=== PATIENT | female | born 1970 | race Caucasian/White ===

== ENCOUNTER 2016-12-06 17:07 | Inpatient (IN) ==
[2016-12-06] MEDS ORDERED: ONDANSETRON 4 MG/2 ML VIAL IV STA (17:39)
[2016-12-06] MEDS ORDERED: ALUM/MAG/SIMETH/LIDO VISC 1:1 30 ML BOTTLE PO STA (17:39)
[2016-12-06] MEDS ORDERED: PANTOPRAZOLE 40 MG VIAL IV STA (17:39)
[2016-12-06 18:16] LABS: Basophils % 0.4 % (0.0-0.8); Eosinophils # 0.1 10*3/uL (0.0-0.87); Eosinophils % 3.1 % (0.00-10.9); Hematocrit 28.7 VOL% (35.7-47.0); Hemoglobin 9.7 GM/DL (12.0-16.0); Immature Granulocytes % 0.4 %; Immature Granulocytes Absolute 0.02 #; Lymphocytes # 1.3 10*3/uL (1.4-4.0); Lymphocytes % 29.8 % (21.3-54.2); Mean Corpuscular HGB Conc 33.8 GM/DL (32-36); Mean Corpuscular Hemoglobin 33 PG (27-34); Mean Corpuscular Volume 97.3 FL (87-102); Mean Platelet Volume 10.5 FL (9.6-12.0); Monocytes # 0.4 10*3/uL (0.11-0.8); Monocytes % 7.8 % (1.7-12.7); Neutrophils # 2.6 10*3/uL (1.4-7.4); Neutrophils % 58.5 % (38.7-73.9); Platelet Count 176 T/CUMM (130-400); Red Blood Count 2.95 MC/CUMM (3.8-5.5); Red Cell Distribution Width 14.8 % (9.3-17.3); White Blood Count 4.5 T/CUMM (4-12)
[2016-12-06] MEDS ORDERED: PANTOPRAZOLE 40 MG VIAL IV ONE (18:33)
[2016-12-06] MEDS ORDERED: ONDANSETRON 4 MG/2 ML VIAL ONE (18:33)
[2016-12-06] MEDS ORDERED: ALUM/MAG/SIMETH/LIDO VISC 1:1 30 ML BOTTLE PO ONE (18:33)
--- NOTE | 2016-12-06 18:33 | Emergency Department Note ---
Charlene Jeffries Hilary, am scribing for, and in the presence of, Irwin Tolentino MD 18:03. Randa Jeffries Charles R, MD, personally performed the services described in this documentation, ascribed by Shalini Chang in my presence, and it is both accurate and complete [id number] . Arrival - Arrival Chief Complaint: Non-Specific Stated Complaint: elevated potassium/sent by Dr. Bejarano office ED Nursing Triage Note: pt went to dr mcgraw office this am and had labs drawn. pt was told to come to the er for a K+ 7.4 Mode of Arrival: Wheelchair Limitations: No Limitations Source: Patient, RN Notes Reviewed Time Seen by Provider: 12/06/16 17:26 - History of Present Illness HPI Narrative: Pt is a 6 y/o female presenting to the ED for evaluation of a K+ of 7.[address] Ortiz strong this AM where she had labs drawn. Pt gives a long story that started with her great toe on her left foot being removed, she was put on Bactrim for 10 days, antibiotics bother her stomach so she has had foul smelling , cranberry colored stool for 4 days. She confirms weakness, trembling, SOB due to her anemia, she fell the other day and fell on her tailbone and her back has been hurting over her kidneys. No other complaints or problems stated in the ED. Onset (ago): unknown Consistency: constant Severity: mild Severity scale (1-10): 1 Allergies/Adverse Reactions: Allergies Allergy/AdvReac Type Severity Reaction Status Date / Time acetaminophen [From Lortab] Allergy Verified 03/14/16 11:33 hydrochlorothiazide Allergy Verified 03/14/16 11:33 hydrocodone [From Lortab] Allergy Verified 03/14/16 11:33 Home Medications: Home Medications Medication Instructions Recorded Confirmed Type Allopurinol [Zyloprim] 100 mg PO BID 03/14/16 12/06/16 History Aspirin EC Tab 325 mg PO QPM 03/14/16 12/06/16 History Atenolol [Tenormin] 50 mg PO DAILY 03/14/16 12/06/16 History Cholecalciferol (Vitamin D3) 5,000 unit PO DAILY 03/14/16 12/06/16 History [Vitamin D3] Estradiol Tab [Estrace Tab] 2 mg PO DAILY 03/14/16 12/06/16 History Ferrous Sulfate [Ferrous Sulfate 325 mg PO DAILY 03/14/16 12/06/16 History Cap] Furosemide Tab [Lasix Tab] 40 mg PO QAM 03/14/16 12/06/16 History Insulin Regular Conc U-500 55 units SUBCUT TID W/MEALS 03/14/16 12/06/16 History [HumuLIN R U-500 (CONCENTRATED)] Lisinopril [Zestril] 40 mg PO BEDTIME 03/14/16 12/06/16 History Magnesium Chloride [Slow Mag] 64 mg PO BID 03/14/16 12/06/16 History Montelukast Tab [Singulair Tab] 10 mg PO DAILY 03/14/16 12/06/16 History Pioglitazone HCl [Actos] 30 mg PO DAILY 03/14/16 12/06/16 History Promethazine Tab [Phenergan Tab] 25 mg PO Q6H PRN 03/14/16 12/06/16 History Ranitidine Tab [Zantac Tab] 150 mg PO BID PRN 03/14/16 12/06/16 History Sertraline [Zoloft] 50 mg PO DAILY 03/14/16 12/06/16 History Spironolactone [Aldactone] 25 mg PO BID 03/14/16 12/06/16 History amLODIPine [Norvasc] 2.5 mg PO DAILY 03/14/16 12/06/16 History metFORMIN [Glucophage] 500 mg PO BID 03/14/16 12/06/16 History traMADol TAB [Ultram] 50 mg PO Q6H PRN 03/14/16 12/06/16 History Furosemide Tab [Lasix Tab] 20 tablet PO QPM 04/08/16 12/06/16 History Gabapentin 300 mg PO BID 12/06/16 12/06/16 History Levothyroxine Tab [Synthroid Tab] 150 mcg PO DAILY 12/06/16 12/06/16 History Multivitamin (Centrum) [Centrum 1 tablet PO DAILY 12/06/16 12/06/16 History Tab] Vitamin E 400 unit PO DAILY 12/06/16 12/06/16 History Review of System - Review of System 12 point system: reviewed and no additional remarkable complaints except as stated - Review of System Constitutional: Present: weakness. Absent: fever Respiratory: Present: respiratory distress (SOB) Gastrointestinal: Present: diarrhea, hematochezia Musculoskeletal: Present: lower back pain Neurological: Present: weakness Medical,Surgical,& Family Hx - Medical History Cardio: History of: Hypertension Psychological: History of: Depression No history of: Anxiety Disorders, Bipolar Disorder, Schizophrenia Neurology: History of: Peripheral Neuropathy No history of: Seizures HEENT: History of: Eye Problem (GLASSES) Endocrine: History of: Diabetes Mellitus (IDDM), Diabetes Mellitus (NIDDM), Dyslipidemia, Thyroid Disorder, Endocrine Problems (THYROID NODULE) Rheumatology: History of;: Gout Respiratory: History of: Obstructive Sleep Apnea (SLEEP WITH CPAP), Pneumonia ( 2012) Genitourinary: History of: Kidney Stones No history of: Bladder Problem Gastrointestinal: History of: GERD, Gastrointestinal Bleed, Hemorrhoids, Hematochezia, Hepatitis, Liver Problems (SWARTZ), Polyps Musculoskeletal: History of: Back/Neck Problems, Degenerative Disk Disease, Musculoskeletal Problems (OSteoarthritis; Stenosis) Hematology: History of: Anemia Reproductive: No history of: Abnormal Pap Smear, Breast Cancer, Reproductive Cancer Other: No history of: Cancer - Surgical History Cardiac Surgeries: Sugical HX of: Cardiac Catheterization (2010) HEENT Surgeries: Patient denies: Tonsilectomy & Adenoidectomy Abdominal Surgeries: Surgical HX of: Abdominal Surgery, Appendectomy, Colonoscopy, EGD Patient denies: Cholecystectomy Reproductive Surgeries: Surgical HX of;: Gynecologic Surgery, Hysterectomy Patient denies;: Genitourinary Surgery Orthopedic Surgeries: Surgical HX of;: Orthopedic Surgery (LEFT KNEE SCOPE) - Family History Family History: Reports;: Family Cancer (Mother (lymphoma)), Family Diabetes ( Brother, Mother), Family Heart Disease (Father), Family Hypertension (Father, Mother) - Social History Smoking Status: Never smoker Frequency of Alcohol Use: None Type of Drug Use: None Exam Vital Signs: Vital Signs Temperature 97.2 F L 12/06/16 17:39 Pulse Rate 69 12/06/16 18:56 Respiratory Rate 25 H 12/06/16 18:56 Blood Pressure 116/49 12/06/16 18:56 O2 Sat by Pulse Oximetry 100 12/06/16 18:56 - General General appearance: alert, in no apparent distress, obese (pickwickian syndrome due to trunkal obesity) - Head Head exam: Present: atraumatic, normocephalic - Eye Eye exam: Present: normal appearance, PERRL, EOMI, other (pale conjunctiva) - ENT ENT exam: Present: mucous membranes moist, TM's normal bilaterally. Absent: mucous membranes dry - Neck Neck exam: Present: full ROM, trachea midline. Absent: tenderness - Chest Chest inspection: Present: symmetric chest wall rise. Absent: tenderness - Respiratory Respiratory exam: Present: normal lung sounds bilaterally, rales (bibasilar), wheezes (slight wheezes that stop when she takes a breath) - Cardiovascular Cardiovascular exam: Present: regular rate, normal rhythm, normal heart sounds. Absent: murmur, rubs, gallop - Abdominal Exam Abdominal exam: Present: soft, distention (distended proturberant abdomen), tenderness (diffused tenderness), diminished bowel sounds - Rectal Exam Rectal exam: Present: heme (+) stool - Extremities Exam Extremities exam: Present: full ROM, tenderness, pedal edema (+2) - Back Exam Back exam: Present: full ROM. Absent: tenderness - Neurological Exam Neurological exam: Present: alert, oriented X3, CN II-XII intact. Absent: motor sensory deficit - Psychiatric Psychiatric exam: Present: normal affect, normal mood - Skin Skin exam: Present: warm, dry, intact, normal color. Absent: rash Course - Consultations Consultation #1: Dr. Gómez will admit patient for Dr. Dr. Mcgraw Time: 18:51 Results - Labs CBC & BMP: 12/06/16 18:05 12/06/16 18:05 Lab Results: I have reviewed the patients labs Critical Care Time Critical Care Time: Yes Total Critical Care Time: 60 Disposition Clinical Impression: Renal failure, Hyperkalemia, diminished renal excretion, Morbid obesity, Pickwickian syndrome, Anemia, Gastroenteritis, Acute blood loss anemia, GI bleed , Biliary colic, Abdominal pain Case discussed with: patient, patient's family Disposition: Still a Patient Condition: Critical Time of Disposition: 18:52
[2016-12-06 18:38] LABS: Lactic Acid 1.2 MMOL/L (0.4-2.0)
[2016-12-06 18:42] LABS: Alanine Aminotransferase 69 U/L (13-56); Alkaline Phosphatase 72 U/L (45-117); Amylase 89 U/L (25-115); Aspartate Amino Transferase 78 U/L (0-37); Blood Urea Nitrogen 76 MG/DL (7-18); Calcium 9.7 MG/DL (8.5-10.1); Glucose 186 MG/DL (74-106); Osmolality,Calculated 293.4 MOS/KG (273-304); Sodium 133 MMOL/L (136-145); Troponin I Only < 0.015 NG/ML (0.00-0.045)
--- NOTE | 2016-12-06 18:46 | XRay Report ---
XR abdomen 2V Indication: Abdominal pain. Abdomen 3 views: There are some surgical clips in the pelvis. Obesity noted. No small bowel dilatation. Normal amount of stool and gas projects over the colon, without dilatation. No evidence of free air. No abnormal calcifications or masses. Impression: Negative bowel gas pattern. PROCEDURE INTERPRETED AT [facility] DEPARTMENT OF RADIOLOGY Final Report Signed by: Garret Ferguson M.D.
--- NOTE | 2016-12-06 18:46 | XRay Report ---
XR chest 1V Indication: Abdominal pain. Chest one view: Comparison 08/10/2012. Heart size and mediastinal contour remain normal. No new infiltrates are shown. The appearance of interstitial prominence of the lungs likely secondary to overlying obesity. No significant pulmonary edema. No free air under the diaphragm. Impression: No acute cardiopulmonary disease. PROCEDURE INTERPRETED AT [facility] DEPARTMENT OF RADIOLOGY Final Report Signed by: Garret Ferguson M.D.
[2016-12-06] MEDS ORDERED: SODIUM POLYSTYRENE SULFATE 15 GM/60 ML BOTTLE PO STA (18:53)
[2016-12-06] MEDS ORDERED: CALCIUM CHLORIDE 1,000 MG/10 ML SYRINGE IV STA (18:53)
[2016-12-06 19:17] LABS: Apearance,Urine CLEAR (Clear); Bilirubin,Urine Negative (Negative); Blood, Urine Negative (Negative); Glucose,Urine (UA) Negative (Negative); Ketones,Urine Negative (Negative); Mucus,Urine Occasional /LPF (Occasional); Nitrite,Urine Negative (Negative); Protein,Urine Negative; Squamous Epithelial Cell,Urine Occasional /HPF (0-10); Urine Color Yellow (Yellow); Urine Specific Gravity 1.009 (1.001-1.035); Urine Urobilinogen < 2.0 EU/DL (0.2-1.0); WBC,Urine <1 /HPF (0-6)
[2016-12-06] MEDS ORDERED: SODIUM POLYSTYRENE SULFATE 15 GM/60 ML BOTTLE ONE (20:08)
[2016-12-06] MEDS ORDERED: CALCIUM CHLORIDE 1,000 MG/10 ML SYRINGE IV ONE (20:08)
[2016-12-06] MEDS ORDERED: ALBUTEROL/IPRATROPIUM 3 ML NEB RESP TX PRN (22:53)
[2016-12-06] MEDS ORDERED: PROMETHAZINE 25 MG TABLET PO PRN (22:53)
[2016-12-06] MEDS ORDERED: ONDANSETRON 4 MG/2 ML VIAL IV PRN (22:53)
[2016-12-06] MEDS ORDERED: traMADol 50 MG TABLET PO PRN (22:53)
[2016-12-06] MEDS ORDERED: GLUCAGON 1 MG VIAL IM PRN (22:53)
[2016-12-06] MEDS ORDERED: FAMOTIDINE 20 MG TABLET PO PRN ×2 (22:53→23:00)
[2016-12-06] MEDS ORDERED: DEXTROSE 50% 25 GM/50 ML VIAL IV PRN (22:53)
[2016-12-06] MEDS ORDERED: LISINOPRIL 20 MG TABLET PO SCH (22:53)
[2016-12-06] MEDS ORDERED: MORPHINE 2 MG/1 ML SYRINGE IV PRN (22:53)
[2016-12-06 23:35] LABS: Basophils % 0.4 % (0.0-0.8); Eosinophils # 0.2 10*3/uL (0.0-0.87); Hematocrit 29.4 VOL% (35.7-47.0); Hemoglobin 9.7 GM/DL (12.0-16.0); Immature Granulocytes % 0.4 %; Immature Granulocytes Absolute 0.02 #; Lymphocytes # 1.7 10*3/uL (1.4-4.0); Lymphocytes % 32.3 % (21.3-54.2); Mean Corpuscular Hemoglobin 32 PG (27-34); Mean Corpuscular Volume 98.3 FL (87-102); Mean Platelet Volume 10.5 FL (9.6-12.0); Monocytes # 0.5 10*3/uL (0.11-0.8); Monocytes % 9.3 % (1.7-12.7); Neutrophils # 2.9 10*3/uL (1.4-7.4); Neutrophils % 54.6 % (38.7-73.9); Platelet Count 188 T/CUMM (130-400); Red Blood Count 2.99 MC/CUMM (3.8-5.5); Red Cell Distribution Width 14.9 % (9.3-17.3); White Blood Count 5.3 T/CUMM (4-12)
[2016-12-06] MEDS: SODIUM CHLORIDE 0.9% 1,000 ML IV SCH (23:50)
[2016-12-06] MEDS: GABAPENTIN 300 MG CAPSULE PO SCH (23:50)
[2016-12-06] MEDS: DOCUSATE SODIUM 100 MG CAPSULE PO SCH (23:51)
[2016-12-06] MEDS: INSULIN LISPRO 100 UNIT/ML SUBCUT SCH (23:51)
[2016-12-06] MEDS: ALLOPURINOL 100 MG TABLET PO SCH (23:51)
[2016-12-06] MEDS: MAGNESIUM CHLORIDE 64 MG TABLET PO SCH (23:51)
[2016-12-07] MEDS ORDERED: SODIUM POLYSTYRENE SULFATE 15 GM/60 ML BOTTLE PO SCH ×2 (04:00→10:00)
[2016-12-07 04:53] LABS: Albumin 3.5 G/DL (3.4-5.0); Bilirubin,Total 0.7 MG/DL (0.2-1.0); Calcium 9.4 MG/DL (8.5-10.1); Osmolality,Calculated 296.1 MOS/KG (273-304); Total Protein 6.7 G/DL (6.4-8.3)
[2016-12-07 04:57] LABS: Magnesium 2.1 MG/DL (1.8-2.4); Risk Ratio 4.77; VLDL CHOLESTEROL 62.6 MG/DL
[2016-12-07 05:00] LABS: Potassium 7.1 MMOL/L (3.5-5.1)
[2016-12-07] MEDS: LEVOTHYROXINE 150 MCG TABLET PO SCH (06:31)
--- NOTE | 2016-12-07 07:19 | XRay Report ---
History: Shortness of breath Date: 12/07/2016 Study: Chest x-ray AP portable Comparison exam: 12/06/2016 The cardiomediastinal silhouette and pulmonary vasculature are stable when accounting for projection and shallow breath. There is no obvious pulmonary infiltrate or gross pleural effusion. Osseous structures are similar. Impression: No gross interval change PROCEDURE INTERPRETED AT [facility] DEPARTMENT OF RADIOLOGY Final Report Signed by: Dr. Leah Romero
--- NOTE | 2016-12-07 07:30 | Family Practice History&Phys ---
Assessment and Plan (1) Hyperkalemia, diminished renal excretion Status: Acute Assessment and plan: 12/07/2016: Patient's potassium 7.1 this morning. Would continue Kayexalate. We will hold her Spironolactone. I am going to ask nephrology to see her Current Visit: Yes (2) Morbid obesity Status: Chronic Current Visit: Yes History of Present Illness Chief complaint: Weakness History of present illness: Ms. De Los Santos is a 46 year old female Patient is a 46-year-old white female is in the office on day of admission with weakness. Patient states just did not have the energy to get up and get about. Several great deal difficulty walking around the house. She fallen several times at home and had a great deal difficulty getting up. Patient states she does not have any muscle cramps or aches. She had routine laboratory studies performed in the office and her potassium was 7.4. She was advised to come the emergency room for repeat potassium and admission if it is elevated. Patient is on Lasix and spironolactone. She has not had any fever or chills. Patient states she has been drinking liquids adequately. She has not noted any palpitations and has not found herself to be bradycardic. Home Medications Medication Instructions Recorded Confirmed Type Allopurinol [Zyloprim] 100 mg PO BID 03/14/16 12/06/16 History Aspirin EC Tab 325 mg PO QPM 03/14/16 12/06/16 History Atenolol [Tenormin] 50 mg PO DAILY 03/14/16 12/06/16 History Cholecalciferol (Vitamin D3) 5,000 unit PO DAILY 03/14/16 12/06/16 History [Vitamin D3] Estradiol Tab [Estrace Tab] 2 mg PO DAILY 03/14/16 12/06/16 History Ferrous Sulfate [Ferrous Sulfate 325 mg PO DAILY 03/14/16 12/06/16 History Cap] Furosemide Tab [Lasix Tab] 40 mg PO QAM 03/14/16 12/06/16 History Insulin Regular Conc U-500 55 units SUBCUT TID W/MEALS 03/14/16 12/06/16 History [HumuLIN R U-500 (CONCENTRATED)] Lisinopril [Zestril] 40 mg PO BEDTIME 03/14/16 12/06/16 History Magnesium Chloride [Slow Mag] 64 mg PO BID 03/14/16 12/06/16 History Montelukast Tab [Singulair Tab] 10 mg PO DAILY 03/14/16 12/06/16 History Pioglitazone HCl [Actos] 30 mg PO DAILY 03/14/16 12/06/16 History Promethazine Tab [Phenergan Tab] 25 mg PO Q6H PRN 03/14/16 12/06/16 History Ranitidine Tab [Zantac Tab] 150 mg PO BID PRN 03/14/16 12/06/16 History Sertraline [Zoloft] 50 mg PO DAILY 03/14/16 12/06/16 History Spironolactone [Aldactone] 25 mg PO BID 03/14/16 12/06/16 History amLODIPine [Norvasc] 2.5 mg PO DAILY 03/14/16 12/06/16 History metFORMIN [Glucophage] 500 mg PO BID 03/14/16 12/06/16 History traMADol TAB [Ultram] 50 mg PO Q6H PRN 03/14/16 12/06/16 History Furosemide Tab [Lasix Tab] 20 tablet PO QPM 04/08/16 12/06/16 History Gabapentin 300 mg PO BID 12/06/16 12/06/16 History Levothyroxine Tab [Synthroid Tab] 150 mcg PO DAILY 12/06/16 12/06/16 History Multivitamin (Centrum) [Centrum 1 tablet PO DAILY 12/06/16 12/06/16 History Tab] Vitamin E 400 unit PO DAILY 12/06/16 12/06/16 History Allergies Allergy/AdvReac Type Severity Reaction Status Date / Time acetaminophen [From Lortab] Allergy Verified 03/14/16 11:33 hydrochlorothiazide Allergy Verified 03/14/16 11:33 hydrocodone [From Lortab] Allergy Verified 03/14/16 11:33 - Constitutional Constitutional: Present: fatigue, weakness. Absent: chills, fever(s) - EENT Eyes: Absent: blurry vision, loss of vision Ears: Absent: decreased hearing, ear pain Nose, mouth and throat: Absent: dysphagia, hoarseness, nasal congestion, sinus pressure, sore throat - Cardiovascular Cardiovascular: Absent: chest pain at rest, chest pain with activity, orthopnea , palpitations, PND - Respiratory Respiratory: Absent: cough, dyspnea, wheezing - Gastrointestinal Gastrointestinal: Absent: abdominal pain, diarrhea, hematemesis, hematochezia, melena, nausea, vomiting - Genitourinary Genitourinary: Absent: difficulty urinating, urinary frequency, urinary hesitancy - Musculoskeletal Musculoskeletal: Absent: back pain, muscle cramps - Neurological Neurological: Absent: confusion, dizziness, focal weakness, numbness, paresthesias - Psychiatric Psychiatric: Absent: anxiety, confusion, depression - Endocrine Endocrine: Present: fatigue, polydipsia, polyphagia - Hematologic/Lymphatic Hematologic/Lymphatic: Absent: easy bleeding, easy bruising Medical,Surgical,& Family Hx - Medical History Cardio: History of: Hypertension No history of: ME, Pacemaker Psychological: History of: Depression No history of: Anxiety Disorders, Bipolar Disorder, Schizophrenia Neurology: History of: Peripheral Neuropathy No history of: Cerebrovascular Accident, Seizures HEENT: History of: Eye Problem (GLASSES) Endocrine: History of: Diabetes Mellitus (IDDM), Diabetes Mellitus (NIDDM), Dyslipidemia, Thyroid Disorder, Endocrine Problems (THYROID NODULE) Rheumatology: History of;: Gout Respiratory: History of: Intubation, Obstructive Sleep Apnea (SLEEP WITH CPAP), Pneumonia (2012) Genitourinary: History of: Kidney Stones No history of: Bladder Problem Gastrointestinal: History of: GERD, Gastrointestinal Bleed, Hemorrhoids, Hematochezia, Hepatitis, Liver Problems (SWARTZ), Polyps Musculoskeletal: History of: Back/Neck Problems, Degenerative Disk Disease, Musculoskeletal Problems (OSteoarthritis; Stenosis) Hematology: History of: Anemia Reproductive: No history of: Abnormal Pap Smear, Breast Cancer, Reproductive Cancer Other: No history of: Cancer - Surgical History Cardiac Surgeries: Sugical HX of: Cardiac Catheterization (2010) HEENT Surgeries: Patient denies: Tonsilectomy & Adenoidectomy Abdominal Surgeries: Surgical HX of: Abdominal Surgery, Appendectomy, Colonoscopy, EGD Patient denies: Cholecystectomy Reproductive Surgeries: Surgical HX of;: Gynecologic Surgery, Hysterectomy Patient denies;: Genitourinary Surgery Orthopedic Surgeries: Surgical HX of;: Orthopedic Surgery (LEFT KNEE SCOPE) - Family History Family History: Reports;: Family Cancer (Mother (lymphoma)), Family Diabetes ( Brother, Mother), Family Heart Disease (Father), Family Hypertension (Father, Mother) - Social History Smoking Status: Never smoker Frequency of Alcohol Use: None Type of Drug Use: None Exam - Constitutional Vitals: Period Temp Pulse Resp BP Sys/Kruse Pulse Ox Last 24 Hr 96.7 F-97.6 F 61-75 16-25 99-143/35-59 96-100 Exam: General: Objective patient is a well-developed morbidly obese white female in no acute distress. Patient is quite intelligent and able to give an excellent history. HEENT: Pupils equal and reactive to light. Patent nares and airway Neck: No meningismus, adenopathy, thyromegaly. There are no auscultated carotid bruits. Cardiovascular: Regular rhythm. No murmurs or gallops Chest: Clear to auscultation without rales rhonchi wheezes. Abdomen: Soft nontender to palpation No masses, rebound, guarding or tenderness. Neuro: Cranial nerves intact and DTRs and strength symmetric in all extremities. Dermatologic: No evidence of abnormal lesions or masses. Musculoskeletal: There is no joint swelling or tenderness or deformity. Extremities: No calf swelling or tenderness Results - Labs CBC & BMP: 12/06/16 23:27 12/07/16 03:55
[2016-12-07] MEDS: INSULIN LISPRO 100 UNIT/ML SUBCUT SCH ×4 (08:39→20:30)
[2016-12-07] MEDS: FERROUS SULFATE 325 MG TABLET PO SCH (08:41)
[2016-12-07] MEDS: PIOGLITAZONE 15 MG TABLET PO SCH (08:41)
[2016-12-07] MEDS: ESTRADIOL 2 MG TABLET PO SCH (08:41)
[2016-12-07] MEDS: MAGNESIUM CHLORIDE 64 MG TABLET PO SCH ×2 (08:41→20:29)
[2016-12-07] MEDS: VITAMIN E 400 UNIT CAPSULE PO SCH (08:41)
[2016-12-07] MEDS: CHOLECALCIFEROL 1,000 UNIT TABLET PO SCH (08:41)
[2016-12-07] MEDS: MULTIVITAMIN (CENTRUM) TABLET PO SCH (08:41)
[2016-12-07] MEDS: ATENOLOL 50 MG TABLET PO SCH (08:42)
[2016-12-07] MEDS: ALLOPURINOL 100 MG TABLET PO SCH ×2 (08:42→20:29)
[2016-12-07] MEDS: MONTELUKAST 10 MG TABLET PO SCH (08:42)
[2016-12-07] MEDS: amLODIPine 5 MG TABLET PO SCH (08:42)
[2016-12-07] MEDS: DOCUSATE SODIUM 100 MG CAPSULE PO SCH ×2 (08:43→20:30)
[2016-12-07] MEDS: SERTRALINE 50 MG TABLET PO SCH (08:43)
[2016-12-07] MEDS: GABAPENTIN 300 MG CAPSULE PO SCH ×2 (08:43→20:29)
[2016-12-07] MEDS: PANTOPRAZOLE 40 MG TABLET PO SCH (08:43)
[2016-12-07] MEDS: FUROSEMIDE 40 MG/4 ML VIAL IV SCH ×2 (08:43→15:22)
[2016-12-07] MEDS: INSULIN REGULAR 500 UNIT/ML SUBCUT SCH ×3 (08:48→16:30)
--- NOTE | 2016-12-07 08:53 | EKG Report ---
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
--- NOTE | 2016-12-07 10:22 | Gastrointestinal Consult Note ---
Assessment and Plan (1) Hematochezia Status: Acute Assessment and plan: 12/07-several day history of dark red stools with abdominal cramping. Prior history of GI bleed in the past, very similar presentation as to before. Last colonoscopy with right colon AVMs. Hemoglobin holding at 9.7. Continue to monitor H&H at this time. Plan an addendum follow Dr. Romero. Current Visit: Yes History of Present Illness Chief complaint: Hematochezia History of present illness: Ms. De Los Santos is a 46 year old female who was admitted to the hospital with increased weakness and findings of hyperkalemia. Patient is a good historian therefore information is obtained from patient as well as chart review. Patient states that she was in her usual state of health until several days ago when she began to notice that she was becoming increasingly weak. She states that she was unable to do her usual activities during this time. She also states during the same time that she had an ingrown toenail was placed on Bactrim for this. Over the weekend she developed some lower abdominal pain and cramping and began having some loose stools which patient reports were cranberry colored with the appearance of dark blood. She states that this continue for 3-4 days and had a distinct odor noted. She returned back to her PCP due to the increased weakness and at that time was found to have hyperkalemia with potassium of 7. She was admitted to the hospital for further evaluation. Patient states that she has had GI bleed in the past and that this feels very similar to the one she has had prior. She states she did have a bowel movement on yesterday and it was more normal color for her however there was a tinge of red in the water. She states that she has no longer have the abdominal cramping but just having some abdominal soreness and discomfort at this time. Patient's last colonoscopy was done in March 2016 with findings of right colon AVM and removal of polyp (hyperplastic). Her last EGD was February 2016 with findings of duodenal bulb ulcer and she was positive for H. pylori which was treated. At this time her hemoglobin is holding at 9.7, BUN/ creatinine ratio elevated at 31. She denies any anticoagulants or NSAID use. She states that she did stop her 325 mg aspirin when she began having the red stools. Home Medications Medication Instructions Recorded Confirmed Type Allopurinol [Zyloprim] 100 mg PO BID 03/14/16 12/06/16 History Aspirin EC Tab 325 mg PO QPM 03/14/16 12/06/16 History Atenolol [Tenormin] 50 mg PO DAILY 03/14/16 12/06/16 History Cholecalciferol (Vitamin D3) 5,000 unit PO DAILY 03/14/16 12/06/16 History [Vitamin D3] Estradiol Tab [Estrace Tab] 2 mg PO DAILY 03/14/16 12/06/16 History Ferrous Sulfate [Ferrous Sulfate 325 mg PO DAILY 03/14/16 12/06/16 History Cap] Furosemide Tab [Lasix Tab] 40 mg PO QAM 03/14/16 12/06/16 History Insulin Regular Conc U-500 55 units SUBCUT TID W/MEALS 03/14/16 12/06/16 History [HumuLIN R U-500 (CONCENTRATED)] Lisinopril [Zestril] 40 mg PO BEDTIME 03/14/16 12/06/16 History Magnesium Chloride [Slow Mag] 64 mg PO BID 03/14/16 12/06/16 History Montelukast Tab [Singulair Tab] 10 mg PO DAILY 03/14/16 12/06/16 History Pioglitazone HCl [Actos] 30 mg PO DAILY 03/14/16 12/06/16 History Promethazine Tab [Phenergan Tab] 25 mg PO Q6H PRN 03/14/16 12/06/16 History Ranitidine Tab [Zantac Tab] 150 mg PO BID PRN 03/14/16 12/06/16 History Sertraline [Zoloft] 50 mg PO DAILY 03/14/16 12/06/16 History Spironolactone [Aldactone] 25 mg PO BID 03/14/16 12/06/16 History amLODIPine [Norvasc] 2.5 mg PO DAILY 03/14/16 12/06/16 History metFORMIN [Glucophage] 500 mg PO BID 03/14/16 12/06/16 History traMADol TAB [Ultram] 50 mg PO Q6H PRN 03/14/16 12/06/16 History Furosemide Tab [Lasix Tab] 20 tablet PO QPM 04/08/16 12/06/16 History Gabapentin 300 mg PO BID 12/06/16 12/06/16 History Levothyroxine Tab [Synthroid Tab] 150 mcg PO DAILY 12/06/16 12/06/16 History Multivitamin (Centrum) [Centrum 1 tablet PO DAILY 12/06/16 12/06/16 History Tab] Vitamin E 400 unit PO DAILY 12/06/16 12/06/16 History Allergies Allergy/AdvReac Type Severity Reaction Status Date / Time acetaminophen [From Lortab] Allergy Verified 03/14/16 11:33 hydrochlorothiazide Allergy Verified 03/14/16 11:33 hydrocodone [From Lortab] Allergy Verified 03/14/16 11:33 Medical,Surgical,& Family Hx - Medical History Cardio: History of: Hypertension No history of: SD, Pacemaker Psychological: History of: Depression No history of: Anxiety Disorders, Bipolar Disorder, Schizophrenia Neurology: History of: Peripheral Neuropathy No history of: Cerebrovascular Accident, Seizures HEENT: History of: Eye Problem (GLASSES) Endocrine: History of: Diabetes Mellitus (IDDM), Diabetes Mellitus (NIDDM), Dyslipidemia, Thyroid Disorder, Endocrine Problems (THYROID NODULE) Rheumatology: History of;: Gout Respiratory: History of: Intubation, Obstructive Sleep Apnea (SLEEP WITH CPAP), Pneumonia (2012) Genitourinary: History of: Kidney Stones No history of: Bladder Problem Gastrointestinal: History of: GERD, Gastrointestinal Bleed, Hemorrhoids, Hematochezia, Hepatitis, Liver Problems (SWARTZ), Polyps Musculoskeletal: History of: Back/Neck Problems, Degenerative Disk Disease, Musculoskeletal Problems (OSteoarthritis; Stenosis) Hematology: History of: Anemia Reproductive: No history of: Abnormal Pap Smear, Breast Cancer, Reproductive Cancer Other: No history of: Cancer - Surgical History Cardiac Surgeries: Sugical HX of: Cardiac Catheterization (2010) HEENT Surgeries: Patient denies: Tonsilectomy & Adenoidectomy Abdominal Surgeries: Surgical HX of: Abdominal Surgery, Appendectomy, Colonoscopy, EGD Patient denies: Cholecystectomy Reproductive Surgeries: Surgical HX of;: Gynecologic Surgery, Hysterectomy Patient denies;: Genitourinary Surgery Orthopedic Surgeries: Surgical HX of;: Orthopedic Surgery (LEFT KNEE SCOPE) - Family History Family History: Reports;: Family Cancer (Mother (lymphoma)), Family Diabetes ( Brother, Mother), Family Heart Disease (Father), Family Hypertension (Father, Mother) - Social History Smoking Status: Never smoker Frequency of Alcohol Use: None Type of Drug Use: None 12 point system: reviewed and no additional remarkable complaints except as stated - Constitutional Constitutional: Present: as per HPI, weakness - EENT Eyes: Present: as per HPI Ears: Present: as per HPI Nose, mouth and throat: Present: as per HPI - Cardiovascular Cardiovascular: Present: as per HPI - Respiratory Respiratory: Present: as per HPI - Gastrointestinal Gastrointestinal: Present: as per HPI, abdominal pain, cramping, diarrhea, hematochezia - Genitourinary Genitourinary: Present: as per HPI - Musculoskeletal Musculoskeletal: Present: as per HPI - Neurological Neurological: Present: as per HPI - Psychiatric Psychiatric: Present: as per HPI - Endocrine Endocrine: Present: as per HPI - Hematologic/Lymphatic Hematologic/Lymphatic: Present: as per HPI Exam - Constitutional Vitals: Period Temp Pulse Resp BP Sys/Kruse Pulse Ox Last 24 Hr 96.7 F-97.6 F 61-75 15-25 99-143/35-59 96-100 General appearance: no acute distress, over weight - Head Head exam: Present: normal inspection, normocephalic - Eye Eye exam: Present: other (Lids and conjunctive are unremarkable). Absent: scleral icterus - ENT ENT exam: Present: normal exam, normal oropharynx - Neck Neck exam: Present: normal inspection - Respiratory Respiratory exam: Present: clear to auscultation bilaterally. Absent: rales, rhonchi, wheezes - Cardiovascular Cardiovascular exam: Present: regular rate and rhythm. Absent: diastolic murmur , JVD, systolic murmur - GI/Abdominal GI/Abdominal exam: Present: normal bowel sounds, tenderness, soft. Absent: ascites, distended, mass, organomegaly - Extremities Exam Extremities exam: Present: normal inspection, full ROM - Back Exam Back exam: Present: normal inspection - Neurological Exam Neurological exam: Present: alert, oriented X3 - Psychiatric Psychiatric exam: Present: normal affect, normal mood - Skin Skin exam: Present: normal color, warm, dry Results - Labs CBC & BMP: 12/06/16 23:27 12/07/16 03:55 Lab Results: I have reviewed the past 24 hour labs
--- NOTE | 2016-12-07 12:02 | Nephrology Consult Note ---
History of Present Illness Chief complaint: Hyperkalemia, renal insufficiency History of present illness: Ms. De Los Santos is a 46 year old female who presented with generalized weakness. She reports dark stools for 3-4 days prior to admission. She was noted to have significant hyperkalemia on admission. She has a long history of diabetes. She has had mild renal insufficiency with creatinine between 1.5 and 2. She denies palpitations or chest pain. She has had no dysrhythmias since admission. Home Medications Medication Instructions Recorded Confirmed Type Allopurinol [Zyloprim] 100 mg PO BID 03/14/16 12/06/16 History Aspirin EC Tab 325 mg PO QPM 03/14/16 12/06/16 History Atenolol [Tenormin] 50 mg PO DAILY 03/14/16 12/06/16 History Cholecalciferol (Vitamin D3) 5,000 unit PO DAILY 03/14/16 12/06/16 History [Vitamin D3] Estradiol Tab [Estrace Tab] 2 mg PO DAILY 03/14/16 12/06/16 History Ferrous Sulfate [Ferrous Sulfate 325 mg PO DAILY 03/14/16 12/06/16 History Cap] Furosemide Tab [Lasix Tab] 40 mg PO QAM 03/14/16 12/06/16 History Insulin Regular Conc U-500 55 units SUBCUT TID W/MEALS 03/14/16 12/06/16 History [HumuLIN R U-500 (CONCENTRATED)] Lisinopril [Zestril] 40 mg PO BEDTIME 03/14/16 12/06/16 History Magnesium Chloride [Slow Mag] 64 mg PO BID 03/14/16 12/06/16 History Montelukast Tab [Singulair Tab] 10 mg PO DAILY 03/14/16 12/06/16 History Pioglitazone HCl [Actos] 30 mg PO DAILY 03/14/16 12/06/16 History Promethazine Tab [Phenergan Tab] 25 mg PO Q6H PRN 03/14/16 12/06/16 History Ranitidine Tab [Zantac Tab] 150 mg PO BID PRN 03/14/16 12/06/16 History Sertraline [Zoloft] 50 mg PO DAILY 03/14/16 12/06/16 History Spironolactone [Aldactone] 25 mg PO BID 03/14/16 12/06/16 History amLODIPine [Norvasc] 2.5 mg PO DAILY 03/14/16 12/06/16 History metFORMIN [Glucophage] 500 mg PO BID 03/14/16 12/06/16 History traMADol TAB [Ultram] 50 mg PO Q6H PRN 03/14/16 12/06/16 History Furosemide Tab [Lasix Tab] 20 tablet PO QPM 04/08/16 12/06/16 History Gabapentin 300 mg PO BID 12/06/16 12/06/16 History Levothyroxine Tab [Synthroid Tab] 150 mcg PO DAILY 12/06/16 12/06/16 History Multivitamin (Centrum) [Centrum 1 tablet PO DAILY 12/06/16 12/06/16 History Tab] Vitamin E 400 unit PO DAILY 12/06/16 12/06/16 History Allergies Allergy/AdvReac Type Severity Reaction Status Date / Time acetaminophen [From Lortab] Allergy Verified 03/14/16 11:33 hydrochlorothiazide Allergy Verified 03/14/16 11:33 hydrocodone [From Lortab] Allergy Verified 03/14/16 11:33 Medical,Surgical,& Family Hx - Medical History Cardio: History of: Hypertension No history of: HI, Pacemaker Psychological: History of: Depression No history of: Anxiety Disorders, Bipolar Disorder, Schizophrenia Neurology: History of: Peripheral Neuropathy No history of: Cerebrovascular Accident, Seizures HEENT: History of: Eye Problem (GLASSES) Endocrine: History of: Diabetes Mellitus (IDDM), Diabetes Mellitus (NIDDM), Dyslipidemia, Thyroid Disorder, Endocrine Problems (THYROID NODULE) Rheumatology: History of;: Gout Respiratory: History of: Intubation, Obstructive Sleep Apnea (SLEEP WITH CPAP), Pneumonia (2012) Genitourinary: History of: Kidney Stones No history of: Bladder Problem Gastrointestinal: History of: GERD, Gastrointestinal Bleed, Hemorrhoids, Hematochezia, Hepatitis, Liver Problems (SWARTZ), Polyps Musculoskeletal: History of: Back/Neck Problems, Degenerative Disk Disease, Musculoskeletal Problems (OSteoarthritis; Stenosis) Hematology: History of: Anemia Reproductive: No history of: Abnormal Pap Smear, Breast Cancer, Reproductive Cancer Other: No history of: Cancer - Surgical History Cardiac Surgeries: Sugical HX of: Cardiac Catheterization (2010) HEENT Surgeries: Patient denies: Tonsilectomy & Adenoidectomy Abdominal Surgeries: Surgical HX of: Abdominal Surgery, Appendectomy, Colonoscopy, EGD Patient denies: Cholecystectomy Reproductive Surgeries: Surgical HX of;: Gynecologic Surgery, Hysterectomy Patient denies;: Genitourinary Surgery Orthopedic Surgeries: Surgical HX of;: Orthopedic Surgery (LEFT KNEE SCOPE) - Family History Family History: Reports;: Family Cancer (Mother (lymphoma)), Family Diabetes ( Brother, Mother), Family Heart Disease (Father), Family Hypertension (Father, Mother) - Social History Smoking Status: Never smoker Frequency of Alcohol Use: None Type of Drug Use: None Review of Systems 12 point system: reviewed and no additional remarkable complaints except as stated Exam - Vital Signs Vital signs: Period Temp Pulse Resp BP Sys/Kruse Pulse Ox Last 24 Hr 96.7 F-97.6 F 61-75 15-25 99-143/35-59 96-100 Exam: Gen.: Alert and oriented x3. ENT: Pupils equal round reactive to light. EOMs intact. Mucous membranes moist. Neck: Supple. No JVD or bruit. Cardiovascular: Regular rate and rhythm. No murmur rub or gallop Lungs: Clear Abdomen: Soft. Nontender. Positive bowel sounds. No organomegaly Extremities: Trace edema Results - Labs CBC & BMP: 12/06/16 23:27 12/07/16 03:55 Assessment and Plan (1) Acute on chronic renal failure Status: Acute Assessment and plan: 46-year-old woman with: * Hyperkalemia. This is multifactorial, including acute on chronic renal failure, Spironolactone, lisinopril, Bactrim and GI bleeding. She has received IV calcium and p.o. Kayexalate. Monitor shows normal sinus rhythm with no T- wave elevation. Potassium will be repeated in 1 hour * CRF stage II. Secondary to diabetes * Acute worsening of CRF. Agree with current IV fluid. Medications noted above have been held. Discontinue metformin * GI bleed. This appears to be lower GI bleed. She has had AVMs noted in the past on colonoscopy * Diabetes mellitus * Obstructive sleep apnea Current Visit: Yes (2) Hyperkalemia Status: Acute Current Visit: Yes (3) Diabetes mellitus Status: Acute Current Visit: Yes (4) Hematochezia Status: Acute Current Visit: Yes (5) Obstructive sleep apnea Status: Acute Current Visit: Yes
[2016-12-07] MEDS: SODIUM CHLORIDE 0.9% 1,000 ML IV SCH (13:19)
[2016-12-07] MEDS: SODIUM POLYSTYRENE SULFATE 15 GM/60 ML BOTTLE PO SCH ×2 (13:19→20:28)
[2016-12-07] MEDS ORDERED: FUROSEMIDE 40 MG TABLET PO SCH (19:00)
[2016-12-08] MEDS: SODIUM CHLORIDE 0.9% 1,000 ML IV SCH ×3 (02:55→22:59)
[2016-12-08] MEDS: LEVOTHYROXINE 150 MCG TABLET PO SCH ×2 (05:52→06:15)
[2016-12-08] MEDS: SODIUM POLYSTYRENE SULFATE 15 GM/60 ML BOTTLE PO SCH (05:53)
--- NOTE | 2016-12-08 07:43 | Family Practice Progress Note ---
Family Practice - PN: Subj Interval history: Patient states she had a good night she is not having any chest pain, shortness of breath or palpitations. She slept well with her CPAP. Exam (Progress Note) - Constitutional Vitals: Period Temp Pulse Resp BP Sys/Kruse Pulse Ox Last 24 Hr 96.2 F-98.1 F 62-74 15-23 90-122/39-56 95-100 Exam: Objective a well-developed white female no acute distress. She is sleeping soundly on her CPAP. She denies any complaints this morning. Cardiovascular: The heart rates regular hear no murmurs or gallops. Respiratory: Lungs clear to auscultation throughout. Abdomen: There is no abdominal tenderness. Results - Labs CBC & BMP: 12/06/16 23:27 12/08/16 04:31 Lab Results: I have reviewed the past 24 hour labs Assessment and Plan (1) Hyperkalemia, diminished renal excretion Status: Acute Assessment and plan: 12/07/2016: Patient's potassium 7.1 this morning. Would continue Kayexalate. We will hold her Spironolactone. I am going to ask nephrology to see her 12/08/2016: Patient's repeat potassium was 5.7 this morning. We will stop her Kayexalate. Current Visit: Yes (2) Morbid obesity Status: Chronic Current Visit: Yes
[2016-12-08] MEDS: MAGNESIUM CHLORIDE 64 MG TABLET PO SCH ×2 (08:50→20:46)
[2016-12-08] MEDS: CHOLECALCIFEROL 1,000 UNIT TABLET PO SCH (08:50)
[2016-12-08] MEDS: VITAMIN E 400 UNIT CAPSULE PO SCH (08:51)
[2016-12-08] MEDS: MULTIVITAMIN (CENTRUM) TABLET PO SCH (08:51)
[2016-12-08] MEDS: amLODIPine 5 MG TABLET PO SCH (08:51)
[2016-12-08] MEDS: MONTELUKAST 10 MG TABLET PO SCH (08:52)
[2016-12-08] MEDS: ATENOLOL 50 MG TABLET PO SCH (08:52)
[2016-12-08] MEDS: DOCUSATE SODIUM 100 MG CAPSULE PO SCH ×2 (08:52→20:46)
[2016-12-08] MEDS: ALLOPURINOL 100 MG TABLET PO SCH ×2 (08:52→20:45)
[2016-12-08] MEDS: PANTOPRAZOLE 40 MG TABLET PO SCH (08:52)
[2016-12-08] MEDS: PIOGLITAZONE 15 MG TABLET PO SCH (08:52)
[2016-12-08] MEDS: GABAPENTIN 300 MG CAPSULE PO SCH ×2 (08:52→20:45)
[2016-12-08] MEDS: ESTRADIOL 2 MG TABLET PO SCH (08:52)
[2016-12-08] MEDS: SERTRALINE 50 MG TABLET PO SCH (08:53)
[2016-12-08] MEDS: FUROSEMIDE 40 MG/4 ML VIAL IV SCH ×3 (08:53→23:07)
[2016-12-08] MEDS: INSULIN REGULAR 500 UNIT/ML SUBCUT SCH ×3 (08:53→16:25)
[2016-12-08] MEDS: FERROUS SULFATE 325 MG TABLET PO SCH (08:59)
[2016-12-08] MEDS: INSULIN LISPRO 100 UNIT/ML SUBCUT SCH ×4 (08:59→20:46)
[2016-12-08 10:20] LABS: Hematocrit 25.2 VOL% (35.7-47.0); Hemoglobin 8.3 GM/DL (12.0-16.0)
--- NOTE | 2016-12-08 10:31 | Gastrointestinal Progress Note ---
Assessment and Plan (1) Hematochezia Status: Acute Assessment and plan: 12/08-no reports of overt bleeding. Hemoglobin down at 8.3. Potassium trending down at 5.7. Continue to monitor serial H&H at present time. Plan an addendum follow Dr. Romero. 12/07-several day history of dark red stools with abdominal cramping. Prior history of GI bleed in the past, very similar presentation as to before. Last colonoscopy with right colon AVMs. Hemoglobin holding at 9.7. Continue to monitor H&H at this time. Plan an addendum follow Dr. Romero. Current Visit: Yes Gastroenterology - PN: Subj Interval history: CC: Hematochezia Patient is seen awake and alert with family at bedside. States she had an uneventful night. She denies any overt bleeding, abdominal pain or nausea vomiting. Tolerating her diet well at this time. Potassium is noted to be trending down at 5.7. Hemoglobin rechecked and on admission was 9.7 is now down at 8.3 and absence of any overt bleeding. Abdomen is soft, nontender. ROS: Denies shortness of breath or chest pain Exam (Progress Note) - Constitutional Vitals: Period Temp Pulse Resp BP Sys/Kruse Pulse Ox Last 24 Hr 96.2 F-98.1 F 62-74 16-23 90-122/39-56 94-100 - Other Additional findings: General appearance: no acute distress, over weight - Head Head exam: Present: normal inspection, normocephalic - Eye Eye exam: Present: other (Lids and conjunctive are unremarkable). Absent: scleral icterus - ENT ENT exam: Present: normal exam, normal oropharynx - Neck Neck exam: Present: normal inspection - Respiratory Respiratory exam: Present: clear to auscultation bilaterally. Absent: rales, rhonchi, wheezes - Cardiovascular Cardiovascular exam: Present: regular rate and rhythm. Absent: diastolic murmur , JVD, systolic murmur - GI/Abdominal GI/Abdominal exam: Present: normal bowel sounds, tenderness, soft. Absent: ascites, distended, mass, organomegaly - Extremities Exam Extremities exam: Present: normal inspection, full ROM - Back Exam Back exam: Present: normal inspection - Neurological Exam Neurological exam: Present: alert, oriented X3 - Psychiatric Psychiatric exam: Present: normal affect, normal mood - Skin Skin exam: Present: normal color, warm, dry Results - Labs CBC & BMP: 12/08/16 10:15 12/08/16 04:31 Lab Results: I have reviewed the past 24 hour labs
[2016-12-08 14:04] LABS: Calcium 8.6 MG/DL (8.5-10.1)
[2016-12-08] MEDS ORDERED: SODIUM POLYSTYRENE SULFATE 15 GM/60 ML BOTTLE PO ONE (15:10)
--- NOTE | 2016-12-08 19:24 | Nephrology Progress Note ---
Nephrology - PN: Subj Interval history: She feels better overall. No S OB. She remains in NSR Exam (PN)-Nephrology - Vital Signs Vital signs: Period Temp Pulse Resp BP Sys/Kruse Pulse Ox Last 24 Hr 96.2 F-97.9 F 62-74 16-20 90-118/39-48 92-100 Exam: ENT: Normal Cardiovascular: Regular rate and rhythm. No murmur rub or gallop Lungs: Clear Extremities: Trace edema - Lab 12/08/16 10:15 12/08/16 13:17 Most recent lab results Calcium 8.6 MG/DL (8.5-10.1) 12/08/16 13:17 Magnesium 2.1 MG/DL (1.8-2.4) 12/07/16 03:55 Assessment and Plan (1) Acute on chronic renal failure Status: Acute Assessment and plan: 46-year-old woman with: * Hyperkalemia. This is multifactorial, including acute on chronic renal failure, Spironolactone, lisinopril, Bactrim and GI bleeding. She has received IV calcium and p.o. Kayexalate. Monitor shows normal sinus rhythm with no T- wave elevation. This has improved with treatment. Beta agonist will be scheduled * CRF stage II. Secondary to diabetes * Acute worsening of CRF. Agree with current IV fluid. Improving * GI bleed. This appears to be lower GI bleed. She has had AVMs noted in the past on colonoscopy * Diabetes mellitus * Obstructive sleep apnea Current Visit: Yes (2) Hyperkalemia Status: Acute Current Visit: Yes (3) Diabetes mellitus Status: Acute Current Visit: Yes (4) Hematochezia Status: Acute Current Visit: Yes (5) Obstructive sleep apnea Status: Acute Current Visit: Yes
[2016-12-09] MEDS: ALBUTEROL/IPRATROPIUM 3 ML NEB RESP TX SCH ×2 (00:36→07:21)
[2016-12-09] MEDS ORDERED: ALBUTEROL/IPRATROPIUM 3 ML NEB RESP TX SCH (01:00)
[2016-12-09] MEDS: SODIUM CHLORIDE 0.9% 1,000 ML IV SCH (05:23)
[2016-12-09 05:33] LABS: Basophils % 0.5 % (0.0-0.8); Eosinophils # 0.2 10*3/uL (0.0-0.87); Eosinophils % 5.2 % (0.00-10.9); Hemoglobin 8.3 GM/DL (12.0-16.0); Lymphocytes # 1.5 10*3/uL (1.4-4.0); Lymphocytes % 40.9 % (21.3-54.2); Mean Corpuscular HGB Conc 33.2 GM/DL (32-36); Mean Corpuscular Hemoglobin 32 PG (27-34); Mean Corpuscular Volume 97.7 FL (87-102); Mean Platelet Volume 10.9 FL (9.6-12.0); Monocytes # 0.3 10*3/uL (0.11-0.8); Monocytes % 8.8 % (1.7-12.7); Neutrophils # 1.6 10*3/uL (1.4-7.4); Neutrophils % 44.6 % (38.7-73.9); Platelet Count 137 T/CUMM (130-400); Red Blood Count 2.56 MC/CUMM (3.8-5.5); Red Cell Distribution Width 14.6 % (9.3-17.3); White Blood Count 3.6 T/CUMM (4-12)
[2016-12-09 06:03] LABS: Calcium 8.1 MG/DL (8.5-10.1); Osmolality,Calculated 295.7 MOS/KG (273-304); Potassium 4.9 MMOL/L (3.5-5.1)
[2016-12-09] MEDS: LEVOTHYROXINE 150 MCG TABLET PO SCH (06:15)
--- NOTE | 2016-12-09 07:31 | Discharge Summary ---
Hospital Course - Hospital Course Hospital Course: Patient is a 46-year-old white female presented the office complaining of weakness and some lower GI bleeding. Patient found to be hyperkalemic and admitted emergently for treatment of this. It was felt that she had a combination of issues leading to her hyperkalemia including use of spironolactone and GI bleed. Patient's blood count dropped to 25%. She has not had any further bleeding at the time of discharge and does not want to stay in the hospital another day. Patient is a nurse and extremely reliable. She told me she would return promptly if she had any further bleeding. I told her I would continue on calyx late a few more days and also advocated she take an iron supplement. Patient will return to the office in 2 weeks time and at that time we will repeat her blood count and BMP. Diagnosis - Discharge Diagnosis (1) Hyperkalemia, diminished renal excretion Status: Acute (2) Morbid obesity Status: Chronic (3) GI bleed Status: Acute Discharge Plan - Discharge Data Disposition: Disch To Home/Self Care Condition at Discharge: Stable Discharge Diet: advance to your usual diet Activity: resume usual activities as tolerated Hygiene: no restrictions Weight Bearing at Discharge: full weight bearing Driving: no restrictions Contact your physician if you experience:: Bleeding - Discharge Medications New Albuterol/Ipratropium Neb [Duoneb] 3 ml RESP TX RT Q6H Continue Furosemide Tab [Lasix Tab] 40 mg PO QAM Atenolol [Tenormin] 50 mg PO DAILY Allopurinol [Zyloprim] 100 mg PO BID Ranitidine Tab [Zantac Tab] 150 mg PO BID PRN PRN Reason: Heartburn Cholecalciferol (Vitamin D3) [Vitamin D3] 5,000 unit PO DAILY traMADol TAB [Ultram] 50 mg PO Q6H PRN PRN Reason: Pain Insulin Regular Conc U-500 [HumuLIN R U-500 (CONCENTRATED)] 55 units SUBCUT TID W/MEALS Estradiol Tab [Estrace Tab] 2 mg PO DAILY Promethazine Tab [Phenergan Tab] 25 mg PO Q6H PRN PRN Reason: Nausea Montelukast Tab [Singulair Tab] 10 mg PO DAILY Sertraline [Zoloft] 50 mg PO DAILY amLODIPine [Norvasc] 2.5 mg PO DAILY Magnesium Chloride [Slow Mag] 64 mg PO BID Pioglitazone HCl [Actos] 30 mg PO DAILY Furosemide Tab [Lasix Tab] 20 tablet PO QPM Multivitamin (Centrum) [Centrum Tab] 1 tablet PO DAILY Vitamin E 400 unit PO DAILY Levothyroxine Tab [Synthroid Tab] 150 mcg PO DAILY Gabapentin 300 mg PO BID Changed Ferrous Sulfate [Ferrous Sulfate Cap] 325 mg PO BID W/MEALS #60 capsule No Action Aspirin EC Tab 325 mg PO QPM metFORMIN [Glucophage] 500 mg PO BID Spironolactone [Aldactone] 25 mg PO BID Lisinopril [Zestril] 40 mg PO BEDTIME - Follow Up or Referral Follow Up: Thomas Alcantar MD [Physician] - 2 Weeks (CBC and BMP on return to clinic) - Forms/Instructions Exam - Constitutional Vitals: Period Temp Pulse Resp BP Sys/Kruse Pulse Ox Last 24 Hr 97.1 F-97.9 F 63-89 18-20 93-118/44-54 92-100 Exam: Objective a well-developed white female no acute distress. She is sleeping soundly on her CPAP. She denies any complaints this morning. Patient told me she had a tiny amount of bleeding on the tissue when she wiped last night. Cardiovascular: The heart rates regular hear no murmurs or gallops. Respiratory: Lungs clear to auscultation throughout. Abdomen: There is no abdominal tenderness. Discharge Results Procedures and tests throughout hospitalization: Pending Orders 12/08/16 15:41 Occult Blood, Stool Routine Labs on day of discharge: Labs from last 24 hours 12/09/16 12/09/16 12/08/16 05:12 05:12 19:37 WBC 3.6 L D RBC 2.56 L Hgb 8.3 L Hct 25.0 L MCV 97.7 MCH 32 MCHC 33.2 RDW 14.6 Plt Count 137 D MPV 10.9 Neut % (Auto) 44.6 Lymph % (Auto) 40.9 [place] % (Auto) 8.8 Eos % (Auto) 5.2 Baso % (Auto) 0.5 Neut # (Auto) 1.6 Lymph # (Auto) 1.5 [place] # (Auto) 0.3 Eos # (Auto) 0.2 Baso # (Auto) 0.0 Immature Gran % 0.0 Nucleated RBC % 0.0 Immature Gran # 0.00 Nucleated RBCs # 0.00 Sodium 138 Potassium 4.9 Chloride 109 H Carbon Dioxide 19 L Anion Gap 14.9 BUN 63 H Creatinine 1.50 H GFR Calculation 60 BUN/Creatinine Ratio 42.00 H Glucose 152 H POC Glucose 184 H Calculated Osmolality 295.7 Calcium 8.1 L 12/08/16 12/08/16 12/08/16 15:17 13:17 12:22 WBC RBC Hgb Hct MCV MCH MCHC RDW Plt Count MPV Neut % (Auto) Lymph % (Auto) [place] % (Auto) Eos % (Auto) Baso % (Auto) Neut # (Auto) Lymph # (Auto) [place] # (Auto) Eos # (Auto) Baso # (Auto) Immature Gran % Nucleated RBC % Immature Gran # Nucleated RBCs # Sodium 136 Potassium 6.0 H* Chloride 107 Carbon Dioxide 21 Anion Gap 14.0 BUN 67 H Creatinine 1.80 H GFR Calculation 48 BUN/Creatinine Ratio 37.00 H Glucose 193 H POC Glucose 213 H 215 H Calculated Osmolality 295.0 Calcium 8.6 12/08/16 12/08/16 10:15 07:39 WBC RBC Hgb 8.3 L Hct 25.2 L MCV MCH MCHC RDW Plt Count MPV Neut % (Auto) Lymph % (Auto) [place] % (Auto) Eos % (Auto) Baso % (Auto) Neut # (Auto) Lymph # (Auto) [place] # (Auto) Eos # (Auto) Baso # (Auto) Immature Gran % Nucleated RBC % Immature Gran # Nucleated RBCs # Sodium Potassium Chloride Carbon Dioxide Anion Gap BUN Creatinine GFR Calculation BUN/Creatinine Ratio Glucose POC Glucose 127 H Calculated Osmolality Calcium Potassiums down to 4.9. Hematocrit still low at 25%. DS: Provider Date of admission: 12/06/16 20:31 Primary care physician: . No PCP Attending physician on admission: Thomas Alcantar MD Consults: 12/06/16 22:53 Consult to Case Mgmt/Social Srvs [CONS] Routine Reason for Case Mgmt/Social Srvs: Discharge Planning Consult to Physician [CONS] Routine Comment: GI bleed Consulting Provider: Asa Romero When should Consulting Provider be notified: In am Person Notified: chelsie @ [facility] office Date Notified: 12/07/16 Time Notified: 08:30 12/07/16 07:33 Consult to Physician [CONS] Routine Comment: Consulting Provider: Angel Luis Grissom Person Notified: ruben glass @ [facility] Date Notified: 12/07/16 Time Notified: 08:46 Discharging clinician: Thomas Alcantar MD Expected date of discharge: 12/09/16
[2016-12-09 07:52] VITALS: BP 117/59
[2016-12-09] MEDS: FUROSEMIDE 40 MG/4 ML VIAL IV SCH (08:32)
[2016-12-09] MEDS: INSULIN LISPRO 100 UNIT/ML SUBCUT SCH (08:33)
[2016-12-09] MEDS: VITAMIN E 400 UNIT CAPSULE PO SCH (08:33)
[2016-12-09] MEDS: ALLOPURINOL 100 MG TABLET PO SCH (08:33)
[2016-12-09] MEDS: PIOGLITAZONE 15 MG TABLET PO SCH (08:34)
[2016-12-09] MEDS: ATENOLOL 50 MG TABLET PO SCH (08:34)
[2016-12-09] MEDS: CHOLECALCIFEROL 1,000 UNIT TABLET PO SCH (08:34)
[2016-12-09] MEDS: FERROUS SULFATE 325 MG TABLET PO SCH (08:34)
[2016-12-09] MEDS: DOCUSATE SODIUM 100 MG CAPSULE PO SCH (08:34)
[2016-12-09] MEDS: MAGNESIUM CHLORIDE 64 MG TABLET PO SCH (08:35)
[2016-12-09] MEDS: ESTRADIOL 2 MG TABLET PO SCH (08:35)
[2016-12-09] MEDS: GABAPENTIN 300 MG CAPSULE PO SCH (08:35)
[2016-12-09] MEDS: MONTELUKAST 10 MG TABLET PO SCH (08:35)
[2016-12-09] MEDS: amLODIPine 5 MG TABLET PO SCH (08:35)
[2016-12-09] MEDS: PANTOPRAZOLE 40 MG TABLET PO SCH (08:35)
[2016-12-09] MEDS: MULTIVITAMIN (CENTRUM) TABLET PO SCH (08:36)
[2016-12-09] MEDS: SERTRALINE 50 MG TABLET PO SCH (08:36)
[2016-12-09] MEDS: INSULIN REGULAR 500 UNIT/ML SUBCUT SCH (08:43)
== END 2016-12-09 11:34 | disposition home or self-care (01) | DRG 641 ==
LOC: N.ED 17:07 → N.EDINP 20:31 → N.CC 22:11 → N.TELEN 12-07 12:28
PROVIDERS: ADMIT Family Medicine; ATTEND Family Medicine

== ENCOUNTER 2018-01-01 11:52 | Inpatient (IN) ==
[2018-01-01 14:03] LABS: Basophils % 0.4 % (0.0-0.8); Eosinophils # 0.2 10*3/uL (0.0-0.87); Eosinophils % 3.2 % (0.00-10.9); Hematocrit 31.7 VOL% (35.7-47.0); Hemoglobin 10.9 GM/DL (12.0-16.0); Immature Granulocytes % 0.3 %; Immature Granulocytes Absolute 0.02 #; Lymphocytes # 1.6 10*3/uL (1.4-4.0); Lymphocytes % 23.3 % (21.3-54.2); Mean Corpuscular HGB Conc 34.4 GM/DL (32-36); Mean Corpuscular Hemoglobin 32 PG (27-34); Mean Corpuscular Volume 91.9 FL (87-102); Mean Platelet Volume 11.1 FL (9.6-12.0); Monocytes # 0.4 10*3/uL (0.11-0.8); Monocytes % 5.6 % (1.7-12.7); Neutrophils # 4.7 10*3/uL (1.4-7.4); Neutrophils % 67.2 % (38.7-73.9); Platelet Count 195 T/CUMM (130-400); Red Blood Count 3.45 MC/CUMM (3.8-5.5); Red Cell Distribution Width 15.9 % (9.3-17.3); White Blood Count 6.9 T/CUMM (4-12)
[2018-01-01 14:27] LABS: Albumin 3.6 G/DL (3.4-5.0); Bilirubin,Total 0.6 MG/DL (0.2-1.0); Calcium 8.9 MG/DL (8.5-10.1); Osmolality,Calculated 286.1 MOS/KG (273-304); Potassium 2.9 MMOL/L (3.5-5.1)
[2018-01-02 21:49] LABS: Apearance,Urine CLEAR (Clear); Bilirubin,Urine Negative (Negative); Blood, Urine Negative (Negative); Glucose,Urine (UA) Negative (Negative); Hyaline Casts,Urine 1 /LPF (0-3); Ketones,Urine Negative (Negative); Nitrite,Urine Negative (Negative); Protein,Urine Negative; Squamous Epithelial Cell,Urine Occasional /HPF (0-10); Urine Color Yellow (Yellow); Urine Specific Gravity 1.005 (1.001-1.035); Urine Urobilinogen < 2.0 EU/DL (0.2-1.0); WBC,Urine <1 /HPF (0-6)
[2018-01-03 06:19] LABS: Basophils % 0.4 % (0.0-0.8); Eosinophils # 0.1 10*3/uL (0.0-0.87); Eosinophils % 2.5 % (0.00-10.9); Hematocrit 26.4 VOL% (35.7-47.0); Immature Granulocytes % 0.7 %; Immature Granulocytes Absolute 0.04 #; Lymphocytes # 1.1 10*3/uL (1.4-4.0); Lymphocytes % 20.7 % (21.3-54.2); Mean Corpuscular HGB Conc 32.6 GM/DL (32-36); Mean Corpuscular Hemoglobin 31 PG (27-34); Mean Corpuscular Volume 94.6 FL (87-102); Mean Platelet Volume 10.6 FL (9.6-12.0); Monocytes # 0.5 10*3/uL (0.11-0.8); Monocytes % 8.7 % (1.7-12.7); NRBC # 0.02 10*3/uL; Neutrophils # 3.7 10*3/uL (1.4-7.4); Platelet Count 171 T/CUMM (130-400); Red Blood Count 2.79 MC/CUMM (3.8-5.5); Red Cell Distribution Width 15.5 % (9.3-17.3); White Blood Count 5.5 T/CUMM (4-12)
[2018-01-03 06:26] LABS: Calcium 8.2 MG/DL (8.5-10.1); Osmolality,Calculated 287.8 MOS/KG (273-304); Potassium 3.3 MMOL/L (3.5-5.1)
[2018-01-03 06:29] LABS: Hemoglobin 8.6 GM/DL (12.0-16.0)
[2018-01-03 12:00] VITALS: BP 118/53
== END 2018-01-03 15:10 | disposition home health service (06) | DRG 264 ==
LOC: N.2W 12:35 → N.2E 14:41
PROVIDERS: ADMIT Family Medicine; ATTEND Family Medicine

== ENCOUNTER 2019-12-07 23:53 | Inpatient (IN) ==
[2019-12-08] MEDS ORDERED: MORPHINE 4 MG/1 ML VIAL IV ONE (00:16)
[2019-12-08] MEDS ORDERED: ALUM/MAG/SIMETH/LIDO VISC 1:1 30 ML BOTTLE PO STA (00:16)
[2019-12-08] MEDS ORDERED: SODIUM CHLORIDE 0.9% 1,000 ML IV STA (00:16)
[2019-12-08] MEDS ORDERED: ONDANSETRON 4 MG/2 ML VIAL IV ONE (00:16)
[2019-12-08 01:22] LABS: Albumin 3.5 G/DL (3.4-5.0); Bilirubin,Total 1.2 MG/DL (0.2-1.0); Calcium 9.1 MG/DL (8.5-10.1); Osmolality,Calculated 283.7 MOS/KG (273-304); Total Protein 7.8 G/DL (6.4-8.3)
[2019-12-08 01:23] LABS: Troponin I < 0.015 NG/ML (0.00-0.045)
[2019-12-08 01:24] LABS: INR 1.1; PT Patient Result 11.7 SECS (9.8-11.9)
[2019-12-08 01:38] LABS: Basophils % 0.1 % (0.0-0.8); Eosinophils % 0.4 % (0.00-10.9); Hematocrit 34.4 VOL% (35.7-47.0); Hemoglobin 11.6 GM/DL (12.0-16.0); Immature Granulocytes % 0.5 %; Immature Granulocytes Absolute 0.04 #; Lymphocytes # 0.7 10*3/uL (1.4-4.0); Lymphocytes % 8.7 % (21.3-54.2); Mean Corpuscular HGB Conc 33.7 GM/DL (32-36); Mean Corpuscular Volume 100.6 FL (87-102); Mean Platelet Volume 10.9 FL (9.6-12.0); Monocytes % 4.2 % (1.7-12.7); Neutrophils % 86.1 % (38.7-73.9); Platelet Count 183 T/CUMM (130-400); Red Blood Count 3.42 MC/CUMM (3.8-5.5); Red Cell Distribution Width 15.4 % (9.3-17.3); White Blood Count 7.8 T/CUMM (4-12)
[2019-12-08] MEDS ORDERED: HYDROmorphone 2 MG/1 ML VIAL IV STA (01:51)
[2019-12-08] MEDS ORDERED: HYDROmorphone 2 MG/1 ML VIAL IV PRN (01:52)
[2019-12-08] MEDS ORDERED: oxyCODONE/ACETAMINOPHEN 5-325 MG TABLET PO PRN (01:52)
[2019-12-08] MEDS ORDERED: NALOXONE 0.4 MG/ML VIAL IV PRN (01:52)
[2019-12-08] MEDS ORDERED: MEPERIDINE 25 MG/1 ML VIAL IV PRN (01:52)
[2019-12-08] MEDS ORDERED: PROMETHAZINE 25 MG/1 ML VIAL IM PRN (01:52)
[2019-12-08] MEDS: SODIUM CHLORIDE 0.9% 1,000 ML IV SCH ×3 (03:59→17:15)
[2019-12-08] MEDS: LEVOTHYROXINE 150 MCG TABLET PO SCH (06:12)
[2019-12-08] MEDS ORDERED: DEXTROSE 10% 250 ML BAG IV PRN (06:17)
[2019-12-08] MEDS ORDERED: GLUCAGON 1 MG VIAL IM PRN (06:17)
[2019-12-08 06:45] LABS: Basophils % 0.2 % (0.0-0.8); Eosinophils % 0.2 % (0.00-10.9); Hematocrit 31.8 VOL% (35.7-47.0); Hemoglobin 10.7 GM/DL (12.0-16.0); Immature Granulocytes % 0.5 %; Immature Granulocytes Absolute 0.03 #; Lymphocytes # 0.8 10*3/uL (1.4-4.0); Lymphocytes % 12.6 % (21.3-54.2); Mean Corpuscular HGB Conc 33.6 GM/DL (32-36); Mean Platelet Volume 10.7 FL (9.6-12.0); Monocytes % 4.7 % (1.7-12.7); Neutrophils % 81.8 % (38.7-73.9); Platelet Count 176 T/CUMM (130-400); Red Blood Count 3.15 MC/CUMM (3.8-5.5); Red Cell Distribution Width 15.7 % (9.3-17.3); White Blood Count 6.3 T/CUMM (4-12)
[2019-12-08 07:06] LABS: Albumin 3.2 G/DL (3.4-5.0); Bilirubin,Total 0.8 MG/DL (0.2-1.0); Calcium 8.6 MG/DL (8.5-10.1); Osmolality,Calculated 285.4 MOS/KG (273-304); Risk Ratio 4.5; Total Protein 7.3 G/DL (6.4-8.3)
[2019-12-08] MEDS: allopurinoL 100 MG TABLET PO SCH ×2 (09:23→20:52)
[2019-12-08] MEDS: GABAPENTIN 300 MG CAPSULE PO SCH ×2 (09:23→20:53)
[2019-12-08] MEDS: MAGNESIUM CHLORIDE 64 MG TABLET PO SCH ×2 (09:23→20:52)
[2019-12-08] MEDS: amLODIPine 2.5 MG TABLET PO SCH (09:24)
[2019-12-08] MEDS: FUROSEMIDE 40 MG TABLET PO SCH ×2 (09:24→20:52)
[2019-12-08] MEDS: atenoloL 50 MG TABLET PO SCH (09:25)
[2019-12-08] MEDS: PANTOPRAZOLE 40 MG TABLET PO SCH (09:26)
[2019-12-08] MEDS: DOCUSATE SODIUM 100 MG CAPSULE PO SCH ×2 (09:26→20:53)
[2019-12-08] MEDS: POTASSIUM CHLORIDE 20 MEQ TABLET PO SCH (09:26)
[2019-12-08] MEDS: ASPIRIN CHEW 81 MG TABLET PO SCH (09:26)
[2019-12-08] MEDS: MONTELUKAST 10 MG TABLET PO SCH (09:27)
[2019-12-08] MEDS: ONDANSETRON 4 MG/2 ML VIAL IV PRN ×2 (09:29→23:25)
[2019-12-08] MEDS: SERTRALINE 50 MG TABLET PO SCH (09:35)
[2019-12-08] MEDS: INSULIN REGULAR 100 UNIT/ML SUBCUT SCH ×4 (09:35→20:53)
[2019-12-08 11:29] LABS: Apearance,Urine CLEAR (Clear); Bilirubin,Urine Negative (Negative); Blood, Urine Negative (Negative); Glucose,Urine (UA) Negative (Negative); Hyaline Casts,Urine 1 /LPF (0-3); Ketones,Urine Negative (Negative); Nitrite,Urine Negative (Negative); Protein,Urine Negative; RBC,Urine 1 /HPF (0-4); Squamous Epithelial Cell,Urine Occasional /HPF (0-10); Urine Color Yellow (Yellow); Urine Specific Gravity 1.033 (1.001-1.035); Urine Urobilinogen < 2.0 EU/DL (0.2-1.0); WBC,Urine 53 /HPF (0-6)
[2019-12-08] MEDS: INSULIN REGULAR ** CONC 500 UNIT/ML ** 20 ML VIAL SUBCUT SCH ×3 (12:01→16:42)
[2019-12-09] MEDS ORDERED: METHOTREXATE 2.5 MG TABLET PO SCH (09:00)
[2019-12-09] MEDS: INSULIN REGULAR ** CONC 500 UNIT/ML ** 20 ML VIAL SUBCUT SCH ×3 (10:25→19:32)
[2019-12-09] MEDS: INSULIN REGULAR 100 UNIT/ML SUBCUT SCH ×4 (10:32→21:29)
[2019-12-09] MEDS: ONDANSETRON 4 MG/2 ML VIAL IV PRN (11:31)
[2019-12-09 11:36] LABS: Bilirubin,Direct 0.43 MG/DL (0.0-0.20); Bilirubin,Indirect 0.7 MG/DL (0.0-1.0); Bilirubin,Total 1.1 MG/DL (0.2-1.0); Total Protein 7.1 G/DL (6.4-8.3)
[2019-12-09] MEDS: MAGNESIUM CHLORIDE 64 MG TABLET PO SCH ×2 (12:38→21:28)
[2019-12-09] MEDS: PIOGLITAZONE 15 MG TABLET PO SCH (12:38)
[2019-12-09] MEDS: amLODIPine 2.5 MG TABLET PO SCH (12:38)
[2019-12-09] MEDS: FUROSEMIDE 40 MG TABLET PO SCH ×2 (12:39→21:28)
[2019-12-09] MEDS: allopurinoL 100 MG TABLET PO SCH ×2 (12:39→21:28)
[2019-12-09] MEDS: GABAPENTIN 300 MG CAPSULE PO SCH ×2 (12:39→21:28)
[2019-12-09] MEDS: MONTELUKAST 10 MG TABLET PO SCH (12:39)
[2019-12-09] MEDS: DOCUSATE SODIUM 100 MG CAPSULE PO SCH ×2 (12:39→21:28)
[2019-12-09] MEDS: FOLIC ACID 1 MG TABLET PO SCH (12:39)
[2019-12-09] MEDS: atenoloL 50 MG TABLET PO SCH (12:39)
[2019-12-09] MEDS: SERTRALINE 50 MG TABLET PO SCH (12:39)
[2019-12-09] MEDS: ASPIRIN CHEW 81 MG TABLET PO SCH (12:39)
[2019-12-09] MEDS: PANTOPRAZOLE 40 MG TABLET PO SCH (12:40)
[2019-12-09] MEDS: POTASSIUM CHLORIDE 20 MEQ TABLET PO SCH (12:40)
[2019-12-09] MEDS ORDERED: INDOCYANINE GREEN 25 MG VIAL IV ONE (16:00)
[2019-12-09] MEDS ORDERED: ceFAZolin 2,000 MG in PREMIX 1 EACH IV ONE (16:00)
[2019-12-10 03:21] LABS: Albumin 2.9 G/DL (3.4-5.0); Bilirubin,Direct 0.44 MG/DL (0.0-0.20); Bilirubin,Total 1.3 MG/DL (0.2-1.0); Calcium 7.6 MG/DL (8.5-10.1); Osmolality,Calculated 280.7 MOS/KG (273-304); Total Protein 6.8 G/DL (6.4-8.3)
[2019-12-10] MEDS ORDERED: ceFAZolin 2,000 MG in PREMIX 1 EACH IV ONE (06:00)
[2019-12-10] MEDS ORDERED: POTASSIUM CHLORIDE 20 MEQ TABLET PO ONE (06:46)
[2019-12-10] MEDS ORDERED: POTASSIUM CHLORIDE RIDER 10 MEQ in PREMIX 1 EACH IV SCH (07:00)
[2019-12-10] MEDS: INSULIN REGULAR 100 UNIT/ML SUBCUT SCH ×4 (09:18→21:49)
[2019-12-10] MEDS ORDERED: INDOCYANINE GREEN 25 MG VIAL IV ONE (09:30)
[2019-12-10] MEDS ORDERED: LACTATED RINGERS 1,000 ML IV SCH (10:00)
[2019-12-10] MEDS ORDERED: BUPIVACAINE MPF 0.25% 30 ML VIAL ONE (10:03)
[2019-12-10] MEDS ORDERED: LIDOCAINE 1%/EPI INJ 20 ML VIAL ONE (10:03)
[2019-12-10] MEDS ORDERED: TISSUE ADHESIVE 1 EACH APPLICATOR TOP ONE (10:03)
[2019-12-10] MEDS ORDERED: HYDROmorphone 2 MG/1 ML VIAL ONE (11:47)
[2019-12-10] MEDS: HYDROmorphone 2 MG/1 ML VIAL IV PRN ×3 (11:48→12:11)
[2019-12-10] MEDS ORDERED: ONDANSETRON 4 MG/2 ML VIAL ONE ×2 (11:48→12:20)
[2019-12-10] MEDS: INSULIN REGULAR ** CONC 500 UNIT/ML ** 20 ML VIAL SUBCUT SCH ×3 (11:50→19:26)
[2019-12-10] MEDS ORDERED: INSULIN REGULAR 100 UNIT/ML SUBCUT ONE (11:50)
[2019-12-10] MEDS ORDERED: INSULIN REGULAR 100 UNIT/ML ONE (11:56)
[2019-12-10] MEDS ORDERED: ONDANSETRON 4 MG/2 ML VIAL IV PRN (12:07)
[2019-12-10] MEDS ORDERED: LIDOCAINE 2% 5 ML VIAL ONE (12:19)
[2019-12-10] MEDS ORDERED: MIDAZOLAM 2 MG/2 ML VIAL ONE (12:19)
[2019-12-10] MEDS ORDERED: fentaNYL 250 MCG/5 ML VIAL ONE (12:19)
[2019-12-10] MEDS ORDERED: SEVOFLURANE 1 UNIT/15 MINUTE INH ONE (12:19)
[2019-12-10] MEDS ORDERED: propofoL 200 MG/20 ML VIAL IV ONE (12:19)
[2019-12-10] MEDS ORDERED: SUCCINYLCHOLINE 200 MG/10 ML VIAL ONE (12:20)
[2019-12-10] MEDS ORDERED: ESMOLOL 100 MG/10 ML VIAL IV ONE (12:20)
[2019-12-10] MEDS ORDERED: ROCURONIUM 100 MG/10 ML VIAL IV ONE (12:20)
[2019-12-10] MEDS: ASPIRIN CHEW 81 MG TABLET PO SCH (16:02)
[2019-12-10] MEDS: PIOGLITAZONE 15 MG TABLET PO SCH (16:02)
[2019-12-10] MEDS: FOLIC ACID 1 MG TABLET PO SCH (16:03)
[2019-12-10] MEDS: DOCUSATE SODIUM 100 MG CAPSULE PO SCH ×2 (16:03→21:49)
[2019-12-10] MEDS: POTASSIUM CHLORIDE 20 MEQ TABLET PO SCH (16:04)
[2019-12-10] MEDS: FUROSEMIDE 40 MG TABLET PO SCH ×2 (16:04→21:48)
[2019-12-10] MEDS: amLODIPine 2.5 MG TABLET PO SCH (16:08)
[2019-12-10] MEDS: PANTOPRAZOLE 40 MG TABLET PO SCH (16:08)
[2019-12-10] MEDS: GABAPENTIN 300 MG CAPSULE PO SCH ×2 (16:08→21:49)
[2019-12-10] MEDS: MONTELUKAST 10 MG TABLET PO SCH (16:09)
[2019-12-10] MEDS: SERTRALINE 50 MG TABLET PO SCH (16:10)
[2019-12-10] MEDS: atenoloL 50 MG TABLET PO SCH (16:10)
[2019-12-10] MEDS: allopurinoL 100 MG TABLET PO SCH ×2 (16:10→21:48)
[2019-12-10] MEDS: MAGNESIUM CHLORIDE 64 MG TABLET PO SCH ×2 (16:10→21:48)
[2019-12-10 22:45] LABS: Apearance,Urine Slightly Hazy (Clear); Bilirubin,Urine Negative (Negative); Blood, Urine Negative (Negative); Glucose,Urine (UA) Negative (Negative); Hyaline Casts,Urine 1 /LPF (0-3); Ketones,Urine Negative (Negative); Mucus,Urine Occasional /LPF (Occasional); Nitrite,Urine Negative (Negative); Protein,Urine Negative; RBC,Urine 1 /HPF (0-4); Squamous Epithelial Cell,Urine Occasional /HPF (0-10); Urine Color Yellow (Yellow); Urine Specific Gravity 1.011 (1.001-1.035); Urine Urobilinogen < 2.0 EU/DL (0.2-1.0); WBC,Urine 226 /HPF (0-6)
[2019-12-11] MEDS: ONDANSETRON 4 MG/2 ML VIAL IV PRN (01:10)
[2019-12-11] MEDS: ACETAMINOPHEN 325 MG TABLET PO PRN ×3 (03:01→17:40)
[2019-12-11] MEDS: SODIUM CHLORIDE 0.9% 1,000 ML IV SCH (03:30)
[2019-12-11] MEDS: LEVOTHYROXINE 150 MCG TABLET PO SCH ×2 (03:32→06:04)
[2019-12-11 05:37] LABS: Basophils % 0.1 % (0.0-0.8); Eosinophils # 0.1 10*3/uL (0.0-0.87); Eosinophils % 1.5 % (0.00-10.9); Hematocrit 30.6 VOL% (35.7-47.0); Hemoglobin 10.1 GM/DL (12.0-16.0); Immature Granulocytes % 0.4 %; Immature Granulocytes Absolute 0.03 #; Lymphocytes # 0.9 10*3/uL (1.4-4.0); Lymphocytes % 11.2 % (21.3-54.2); Mean Platelet Volume 10.8 FL (9.6-12.0); Monocytes % 6.8 % (1.7-12.7); Platelet Count 161 T/CUMM (130-400); Red Cell Distribution Width 15.4 % (9.3-17.3); White Blood Count 8.2 T/CUMM (4-12)
[2019-12-11 05:57] LABS: Albumin 2.8 G/DL (3.4-5.0); Bilirubin,Direct 0.5 MG/DL (0.0-0.20); Bilirubin,Total 2.3 MG/DL (0.2-1.0); Calcium 7.7 MG/DL (8.5-10.1); Osmolality,Calculated 287.2 MOS/KG (273-304); Total Protein 6.8 G/DL (6.4-8.3)
[2019-12-11] MEDS: ASPIRIN CHEW 81 MG TABLET PO SCH (09:27)
[2019-12-11] MEDS: FUROSEMIDE 40 MG TABLET PO SCH ×2 (09:27→21:25)
[2019-12-11] MEDS: MAGNESIUM CHLORIDE 64 MG TABLET PO SCH ×2 (09:27→21:34)
[2019-12-11] MEDS: PIOGLITAZONE 15 MG TABLET PO SCH (09:27)
[2019-12-11] MEDS: atenoloL 50 MG TABLET PO SCH (09:28)
[2019-12-11] MEDS: FOLIC ACID 1 MG TABLET PO SCH (09:28)
[2019-12-11] MEDS: POTASSIUM CHLORIDE 20 MEQ TABLET PO PRN ×4 (09:28→16:31)
[2019-12-11] MEDS: GABAPENTIN 300 MG CAPSULE PO SCH ×2 (09:28→21:23)
[2019-12-11] MEDS: INSULIN REGULAR 100 UNIT/ML SUBCUT SCH ×4 (09:28→21:26)
[2019-12-11] MEDS: PANTOPRAZOLE 40 MG TABLET PO SCH (09:28)
[2019-12-11] MEDS: SERTRALINE 50 MG TABLET PO SCH (09:28)
[2019-12-11] MEDS: allopurinoL 100 MG TABLET PO SCH ×2 (09:28→21:24)
[2019-12-11] MEDS: amLODIPine 2.5 MG TABLET PO SCH (09:28)
[2019-12-11] MEDS: MONTELUKAST 10 MG TABLET PO SCH (09:28)
[2019-12-11] MEDS: POTASSIUM CHLORIDE 20 MEQ TABLET PO SCH (09:28)
[2019-12-11] MEDS: cefTRIAXone 1,000 MG in SYRINGE 1 EACH IV SCH ×2 (09:29)
[2019-12-11] MEDS: DOCUSATE SODIUM 100 MG CAPSULE PO SCH ×2 (09:30→23:16)
[2019-12-11] MEDS: INSULIN REGULAR ** CONC 500 UNIT/ML ** 20 ML VIAL SUBCUT SCH ×3 (10:00→16:49)
[2019-12-11] MEDS: COLESTIPOL 1 GM TABLET PO SCH (16:30)
[2019-12-12] MEDS: POTASSIUM CHLORIDE 20 MEQ TABLET PO PRN ×4 (01:11→09:52)
[2019-12-12] MEDS: ACETAMINOPHEN 325 MG TABLET PO PRN (01:52)
[2019-12-12 04:17] LABS: Basophils % 0.5 % (0.0-0.8); Eosinophils # 0.3 10*3/uL (0.0-0.87); Eosinophils % 4.4 % (0.00-10.9); Hematocrit 28.8 VOL% (35.7-47.0); Hemoglobin 9.5 GM/DL (12.0-16.0); Immature Granulocytes % 0.3 %; Immature Granulocytes Absolute 0.02 #; Lymphocytes # 1.2 10*3/uL (1.4-4.0); Lymphocytes % 18.6 % (21.3-54.2); Mean Corpuscular Volume 101.4 FL (87-102); Mean Platelet Volume 10.7 FL (9.6-12.0); Monocytes % 8.3 % (1.7-12.7); Neutrophils % 67.9 % (38.7-73.9); Platelet Count 158 T/CUMM (130-400); Red Blood Count 2.84 MC/CUMM (3.8-5.5); Red Cell Distribution Width 15.3 % (9.3-17.3); White Blood Count 6.4 T/CUMM (4-12)
[2019-12-12 04:35] LABS: Albumin 2.6 G/DL (3.4-5.0); Bilirubin,Direct 0.29 MG/DL (0.0-0.20); Bilirubin,Total 0.9 MG/DL (0.2-1.0); Calcium 7.2 MG/DL (8.5-10.1); Osmolality,Calculated 286.2 MOS/KG (273-304); Total Protein 6.7 G/DL (6.4-8.3)
[2019-12-12] MEDS: LEVOTHYROXINE 150 MCG TABLET PO SCH (06:06)
[2019-12-12 08:10] VITALS: BP 143/63
[2019-12-12] MEDS: cefTRIAXone 1,000 MG in SYRINGE 1 EACH IV SCH (08:22)
[2019-12-12] MEDS: INSULIN REGULAR ** CONC 500 UNIT/ML ** 20 ML VIAL SUBCUT SCH (08:22)
[2019-12-12] MEDS: PIOGLITAZONE 15 MG TABLET PO SCH (09:50)
[2019-12-12] MEDS: ASPIRIN CHEW 81 MG TABLET PO SCH (09:51)
[2019-12-12] MEDS: MAGNESIUM CHLORIDE 64 MG TABLET PO SCH (09:51)
[2019-12-12] MEDS: amLODIPine 2.5 MG TABLET PO SCH (09:51)
[2019-12-12] MEDS: GABAPENTIN 300 MG CAPSULE PO SCH (09:51)
[2019-12-12] MEDS: MONTELUKAST 10 MG TABLET PO SCH (09:51)
[2019-12-12] MEDS: COLESTIPOL 1 GM TABLET PO SCH (09:51)
[2019-12-12] MEDS: POTASSIUM CHLORIDE 20 MEQ TABLET PO SCH (09:51)
[2019-12-12] MEDS: FUROSEMIDE 40 MG TABLET PO SCH (09:51)
[2019-12-12] MEDS: PANTOPRAZOLE 40 MG TABLET PO SCH (09:52)
[2019-12-12] MEDS: INSULIN REGULAR 100 UNIT/ML SUBCUT SCH (09:52)
[2019-12-12] MEDS: SERTRALINE 50 MG TABLET PO SCH (09:52)
[2019-12-12] MEDS: FOLIC ACID 1 MG TABLET PO SCH (09:52)
[2019-12-12] MEDS: atenoloL 50 MG TABLET PO SCH (09:52)
[2019-12-12] MEDS: allopurinoL 100 MG TABLET PO SCH (09:52)
[2019-12-12] MEDS: DOCUSATE SODIUM 100 MG CAPSULE PO SCH (09:55)
== END 2019-12-12 10:43 | disposition home or self-care (01) | DRG 418 ==
LOC: N.EDINP 23:53 → N.ED 23:53 → N.EDINP 12-08 03:56 → N.TELES 12-08 04:41
PROVIDERS: ADMIT Family Medicine; ATTEND Family Medicine

== ENCOUNTER 2022-02-09 11:11 | Inpatient (IN) ==
[~2022-02-09 11:11] MED LIST: REMDESIVIR 100 MG in SODIUM CHLORIDE 0.9% 100 ML IV SCH
[2022-02-09] MEDS ORDERED: ONDANSETRON 4 MG/2 ML VIAL IV PRN (11:16)
[2022-02-09] MEDS ORDERED: GLUCAGON 1 MG VIAL IM PRN (11:16)
[2022-02-09] MEDS ORDERED: DEXTROSE 10% 250 ML BAG IV PRN (11:29)
[2022-02-09 13:09] LABS: Albumin 2.8 G/DL (3.4-5.0); Calcium 8.5 MG/DL (8.5-10.1); Osmolality,Calculated 289.4 MOS/KG (273-304); Potassium 3.1 MMOL/L (3.5-5.1); Total Protein 7.5 G/DL (6.4-8.2)
[2022-02-09] MEDS: INSULIN LISPRO 100 UNIT/ML SUBCUT SCH ×3 (14:36→20:31)
[2022-02-09] MEDS ORDERED: REMDESIVIR 200 MG in SODIUM CHLORIDE 0.9% 210 ML IV ONE (15:00)
[2022-02-09 15:08] LABS: Bilirubin,Urine Negative (Negative); Blood, Urine Trace mg/dL (Negative); Glucose,Urine (UA) Negative (Negative); Ketones,Urine Negative (Negative); Nitrite,Urine Negative (Negative); Protein,Urine Negative (Negative); Urine Appearance Clear (Clear); Urine Color Yellow (Yellow); Urine Urobilinogen 0.2 eU/dL (<2.0)
[2022-02-09 15:09] LABS: Mucus,Urine Occasional /LPF (Occasional); Squamous Epithelial Cell,Urine Occasional /HPF (0-10)
[2022-02-09] MEDS: methylPREDNISolone SOD SUC 40 MG/1 ML VIAL IV SCH ×2 (15:52→23:09)
[2022-02-09] MEDS: ENOXAPARIN 40 MG/0.4 ML SYRINGE SUBCUT SCH (15:52)
[2022-02-09] MEDS: MEROPENEM 500 MG in SODIUM CHLORIDE 0.9% 100 ML IV SCH ×2 (15:53→20:34)
[2022-02-09] MEDS: VANCOMYCIN INJ 2,000 MG in SODIUM CHLORIDE 0.9% 500 ML IV SCH (15:54)
[2022-02-09] MEDS: IBUPROFEN 600 MG TABLET PO PRN (16:22)
[2022-02-09] MEDS ORDERED: ALBUTEROL/IPRATROPIUM 3 ML NEB RESP TX PRN (17:08)
[2022-02-09] MEDS: ALBUTEROL/IPRATROPIUM 3 ML NEB RESP TX SCH (19:44)
[2022-02-09] MEDS: OMEPRAZOLE ODT 20 MG TABLET PO SCH (20:31)
[2022-02-09] MEDS: MAGNESIUM CHLORIDE 64 MG TABLET PO SCH (20:32)
[2022-02-09] MEDS: ASPIRIN EC 325 MG TABLET PO SCH (20:32)
[2022-02-09] MEDS: ROSUVASTATIN 10 MG TABLET PO SCH (20:32)
[2022-02-09] MEDS: GABAPENTIN 300 MG CAPSULE PO SCH (20:32)
[2022-02-09] MEDS: FUROSEMIDE 80 MG TABLET PO SCH (20:32)
[2022-02-09] MEDS: DOCUSATE SODIUM 100 MG CAPSULE PO SCH (20:34)
[2022-02-09] MEDS ORDERED: DOCUSATE SODIUM 100 MG CAPSULE PO SCH (21:00)
[2022-02-09] MEDS ORDERED: POTASSIUM CHLORIDE 20 MEQ TABLET PO ONE (21:30)
[2022-02-10] MEDS: ALBUTEROL/IPRATROPIUM 3 ML NEB RESP TX SCH ×4 (00:20→19:53)
[2022-02-10] MEDS: VANCOMYCIN INJ 2,000 MG in SODIUM CHLORIDE 0.9% 500 ML IV SCH ×2 (04:15→15:13)
[2022-02-10 05:46] LABS: Hematocrit 24.5 VOL% (35.7-47.0); Hemoglobin 7.9 GM/DL (12.0-16.0); Immature Granulocytes % 0.9 %; Immature Granulocytes Absolute 0.02 #; Lymphocytes # 0.1 10*3/uL (1.4-4.0); Lymphocytes % 4.7 % (21.3-54.2); Mean Corpuscular HGB Conc 32.2 GM/DL (32-36); Mean Corpuscular Volume 100.8 FL (87-102); Mean Platelet Volume 10.6 FL (9.6-12.0); Neutrophils % 94.4 % (38.7-73.9); Platelet Count 214 T/CUMM (130-400); Red Blood Count 2.43 MC/CUMM (3.8-5.5); Red Cell Distribution Width 17.2 % (9.3-17.3); White Blood Count 2.3 T/CUMM (4-12)
[2022-02-10 06:03] LABS: Albumin 2.4 G/DL (3.4-5.0); Calcium 8.3 MG/DL (8.5-10.1); Osmolality,Calculated 303.4 MOS/KG (273-304); Potassium 3.6 MMOL/L (3.5-5.1); Total Protein 6.6 G/DL (6.4-8.2)
[2022-02-10 06:16] LABS: Hypochromia Slight; Lymphocytes 5 % (20-55); Microcytosis Slight; Ovalocytes Slight; Platelet Estimate Adequate; Total Cells Counted 100
[2022-02-10 06:29] LABS: Risk Ratio 2.46; VLDL Cholesterol 28.4 MG/DL
[2022-02-10] MEDS: LEVOTHYROXINE 150 MCG TABLET PO SCH (07:57)
[2022-02-10] MEDS ORDERED: INSULIN GLARGINE 100 UNIT/ML SUBCUT SCH (09:00)
[2022-02-10] MEDS: MONTELUKAST 10 MG TABLET PO SCH (10:09)
[2022-02-10] MEDS: VITAMIN E 400 UNIT CAPSULE PO SCH (10:10)
[2022-02-10] MEDS: POTASSIUM CHLORIDE 20 MEQ TABLET PO SCH (10:10)
[2022-02-10] MEDS: MAGNESIUM CHLORIDE 64 MG TABLET PO SCH ×2 (10:10→22:27)
[2022-02-10] MEDS: ESTRADIOL 1 MG TABLET PO SCH (10:10)
[2022-02-10] MEDS: ZINC SULFATE 220 MG CAPSULE PO SCH (10:11)
[2022-02-10] MEDS: PANTOPRAZOLE 40 MG TABLET PO SCH (10:11)
[2022-02-10] MEDS: allopurinoL 100 MG TABLET PO SCH (10:11)
[2022-02-10] MEDS: DOCUSATE SODIUM 100 MG CAPSULE PO SCH ×2 (10:11→22:28)
[2022-02-10] MEDS: GABAPENTIN 300 MG CAPSULE PO SCH ×2 (10:11→22:28)
[2022-02-10] MEDS: FOLIC ACID 1 MG TABLET PO SCH (10:11)
[2022-02-10] MEDS: amLODIPine 5 MG TABLET PO SCH (10:12)
[2022-02-10] MEDS: FUROSEMIDE 80 MG TABLET PO SCH ×2 (10:12→22:28)
[2022-02-10] MEDS: KRILL OIL 500 MG PO SCH (10:12)
[2022-02-10] MEDS: SERTRALINE 50 MG TABLET PO SCH (10:13)
[2022-02-10] MEDS: atenoloL 50 MG TABLET PO SCH (10:13)
[2022-02-10] MEDS: FERROUS SULFATE 325 MG TABLET PO SCH (10:13)
[2022-02-10] MEDS: CHOLECALCIFEROL 5,000 UNIT TABLET PO SCH (10:13)
[2022-02-10] MEDS: HYDROXYCHLOROQUINE 200 MG TABLET PO SCH ×2 (10:13→22:27)
[2022-02-10] MEDS: INSULIN LISPRO 100 UNIT/ML SUBCUT SCH ×3 (10:16→11:59)
[2022-02-10] MEDS: MEROPENEM 500 MG in SODIUM CHLORIDE 0.9% 100 ML IV SCH ×3 (10:17→22:40)
[2022-02-10] MEDS: methylPREDNISolone SOD SUC 40 MG/1 ML VIAL IV SCH ×3 (10:17→22:40)
[2022-02-10] MEDS: REMDESIVIR 100 MG in SODIUM CHLORIDE 0.9% 100 ML IV SCH (10:30)
[2022-02-10] MEDS ORDERED: INSULIN REGULAR ** CONC 500 UNIT/ML ** 20 ML VIAL SUBCUT SCH ×4 (11:30→16:30)
[2022-02-10] MEDS: INSULIN REGULAR ** CONC 500 UNIT/ML ** 20 ML VIAL SUBCUT SCH (12:22)
[2022-02-10] MEDS: ENOXAPARIN 40 MG/0.4 ML SYRINGE SUBCUT SCH (12:41)
[2022-02-10] MEDS: ASPIRIN EC 325 MG TABLET PO SCH (22:27)
[2022-02-10] MEDS: OMEPRAZOLE ODT 20 MG TABLET PO SCH (22:27)
[2022-02-10] MEDS: ROSUVASTATIN 10 MG TABLET PO SCH (22:28)
[2022-02-11] MEDS: ALBUTEROL/IPRATROPIUM 3 ML NEB RESP TX SCH ×4 (01:20→19:08)
[2022-02-11] MEDS: VANCOMYCIN INJ 2,000 MG in SODIUM CHLORIDE 0.9% 500 ML IV SCH ×2 (04:18→16:16)
[2022-02-11 06:24] LABS: Hematocrit 26.1 VOL% (35.7-47.0); Hemoglobin 8.6 GM/DL (12.0-16.0); Immature Granulocytes % 1.8 %; Immature Granulocytes Absolute 0.07 #; Lymphocytes # 0.2 10*3/uL (1.4-4.0); Lymphocytes % 6.1 % (21.3-54.2); Mean Corpuscular Volume 98.5 FL (87-102); Mean Platelet Volume 10.2 FL (9.6-12.0); Monocytes # 0.1 10*3/uL (0.11-0.8); Monocytes % 1.5 % (1.7-12.7); NRBC # 0.03 10*3/uL; Neutrophils % 90.6 % (38.7-73.9); Platelet Count 282 T/CUMM (130-400); Red Blood Count 2.65 MC/CUMM (3.8-5.5); Red Cell Distribution Width 16.7 % (9.3-17.3)
[2022-02-11] MEDS: MEROPENEM 500 MG in SODIUM CHLORIDE 0.9% 100 ML IV SCH ×3 (06:43→20:40)
[2022-02-11 06:48] LABS: Lymphocytes 4 % (20-55); Microcytosis Slight; Ovalocytes Slight; Total Cells Counted 100
[2022-02-11] MEDS: LEVOTHYROXINE 150 MCG TABLET PO SCH (06:48)
[2022-02-11 06:49] LABS: Platelet Estimate Normal
[2022-02-11 06:55] LABS: Albumin 2.7 G/DL (3.4-5.0); Bilirubin,Total 0.8 MG/DL (0.20-1.00); Calcium 8.5 MG/DL (8.5-10.1); Osmolality,Calculated 298.5 MOS/KG (273-304); Total Protein 7.2 G/DL (6.4-8.2)
[2022-02-11 06:59] LABS: Calcium 8.1 MG/DL (8.5-10.1); Osmolality,Calculated 300.4 MOS/KG (273-304); Potassium 3.2 MMOL/L (3.5-5.1)
[2022-02-11] MEDS: INSULIN REGULAR ** CONC 500 UNIT/ML ** 20 ML VIAL SUBCUT SCH ×4 (08:29→16:57)
[2022-02-11] MEDS: REMDESIVIR 100 MG in SODIUM CHLORIDE 0.9% 100 ML IV SCH (08:30)
[2022-02-11] MEDS: methylPREDNISolone SOD SUC 40 MG/1 ML VIAL IV SCH ×2 (08:30→17:58)
[2022-02-11] MEDS: HYDROXYCHLOROQUINE 200 MG TABLET PO SCH ×2 (08:31→20:39)
[2022-02-11] MEDS: ESTRADIOL 1 MG TABLET PO SCH (08:31)
[2022-02-11] MEDS: allopurinoL 100 MG TABLET PO SCH (08:31)
[2022-02-11] MEDS: FERROUS SULFATE 325 MG TABLET PO SCH (08:31)
[2022-02-11] MEDS: MONTELUKAST 10 MG TABLET PO SCH (08:31)
[2022-02-11] MEDS: FOLIC ACID 1 MG TABLET PO SCH (08:31)
[2022-02-11] MEDS: POTASSIUM CHLORIDE 20 MEQ TABLET PO SCH (08:31)
[2022-02-11] MEDS: FUROSEMIDE 80 MG TABLET PO SCH ×2 (08:31→20:39)
[2022-02-11] MEDS: VITAMIN E 400 UNIT CAPSULE PO SCH (08:31)
[2022-02-11] MEDS: GABAPENTIN 300 MG CAPSULE PO SCH ×2 (08:31→20:39)
[2022-02-11] MEDS: MAGNESIUM CHLORIDE 64 MG TABLET PO SCH ×2 (08:31→20:39)
[2022-02-11] MEDS: atenoloL 50 MG TABLET PO SCH (08:32)
[2022-02-11] MEDS: ZINC SULFATE 220 MG CAPSULE PO SCH (08:32)
[2022-02-11] MEDS: CHOLECALCIFEROL 5,000 UNIT TABLET PO SCH (08:32)
[2022-02-11] MEDS: PANTOPRAZOLE 40 MG TABLET PO SCH (08:32)
[2022-02-11] MEDS: amLODIPine 5 MG TABLET PO SCH (08:32)
[2022-02-11] MEDS: SERTRALINE 50 MG TABLET PO SCH (08:32)
[2022-02-11] MEDS: DOCUSATE SODIUM 100 MG CAPSULE PO SCH ×2 (09:54→20:39)
[2022-02-11] MEDS: KRILL OIL 500 MG PO SCH (09:54)
[2022-02-11] MEDS: ENOXAPARIN 40 MG/0.4 ML SYRINGE SUBCUT SCH (12:54)
[2022-02-11] MEDS: ASPIRIN EC 325 MG TABLET PO SCH (20:38)
[2022-02-11] MEDS: OMEPRAZOLE ODT 20 MG TABLET PO SCH (20:39)
[2022-02-11] MEDS: ROSUVASTATIN 10 MG TABLET PO SCH (20:39)
[2022-02-12] MEDS: ALBUTEROL/IPRATROPIUM 3 ML NEB RESP TX SCH ×4 (00:04→20:35)
[2022-02-12] MEDS: methylPREDNISolone SOD SUC 40 MG/1 ML VIAL IV SCH ×2 (05:50→17:16)
[2022-02-12] MEDS: MEROPENEM 500 MG in SODIUM CHLORIDE 0.9% 100 ML IV SCH ×2 (05:50→12:00)
[2022-02-12] MEDS: LEVOTHYROXINE 150 MCG TABLET PO SCH (05:54)
[2022-02-12] MEDS: IBUPROFEN 600 MG TABLET PO PRN ×2 (06:35→14:10)
[2022-02-12] MEDS: INSULIN REGULAR ** CONC 500 UNIT/ML ** 20 ML VIAL SUBCUT SCH ×3 (08:30→16:35)
[2022-02-12] MEDS: DOCUSATE SODIUM 100 MG CAPSULE PO SCH ×2 (10:14→22:51)
[2022-02-12] MEDS: GABAPENTIN 300 MG CAPSULE PO SCH ×2 (10:16→22:50)
[2022-02-12] MEDS: FERROUS SULFATE 325 MG TABLET PO SCH (10:16)
[2022-02-12] MEDS: PANTOPRAZOLE 40 MG TABLET PO SCH (10:16)
[2022-02-12] MEDS: MONTELUKAST 10 MG TABLET PO SCH (10:16)
[2022-02-12] MEDS: CHOLECALCIFEROL 5,000 UNIT TABLET PO SCH (10:16)
[2022-02-12] MEDS: FUROSEMIDE 80 MG TABLET PO SCH ×2 (10:16→22:51)
[2022-02-12] MEDS: MAGNESIUM CHLORIDE 64 MG TABLET PO SCH ×2 (10:17→22:52)
[2022-02-12] MEDS: atenoloL 50 MG TABLET PO SCH (10:17)
[2022-02-12] MEDS: ZINC SULFATE 220 MG CAPSULE PO SCH (10:17)
[2022-02-12] MEDS: amLODIPine 5 MG TABLET PO SCH (10:17)
[2022-02-12] MEDS: ESTRADIOL 1 MG TABLET PO SCH (10:17)
[2022-02-12] MEDS: VITAMIN E 400 UNIT CAPSULE PO SCH (10:17)
[2022-02-12] MEDS: SERTRALINE 50 MG TABLET PO SCH (10:17)
[2022-02-12] MEDS: HYDROXYCHLOROQUINE 200 MG TABLET PO SCH ×2 (10:17→22:51)
[2022-02-12] MEDS: FOLIC ACID 1 MG TABLET PO SCH (10:18)
[2022-02-12] MEDS: POTASSIUM CHLORIDE 20 MEQ TABLET PO SCH (10:18)
[2022-02-12] MEDS: allopurinoL 100 MG TABLET PO SCH (10:18)
[2022-02-12] MEDS: KRILL OIL 500 MG PO SCH (10:31)
[2022-02-12] MEDS: ENOXAPARIN 40 MG/0.4 ML SYRINGE SUBCUT SCH (12:00)
[2022-02-12] MEDS: ACETAMINOPHEN 325 MG TABLET PO PRN (17:20)
[2022-02-12] MEDS: OMEPRAZOLE ODT 20 MG TABLET PO SCH (22:51)
[2022-02-12] MEDS: ASPIRIN EC 325 MG TABLET PO SCH (22:51)
[2022-02-12] MEDS: ROSUVASTATIN 10 MG TABLET PO SCH (22:51)
[2022-02-13] MEDS: MEROPENEM 500 MG in SODIUM CHLORIDE 0.9% 100 ML IV SCH ×4 (00:27→21:56)
[2022-02-13] MEDS: ALBUTEROL/IPRATROPIUM 3 ML NEB RESP TX SCH ×4 (02:45→19:35)
[2022-02-13] MEDS: ACETAMINOPHEN 325 MG TABLET PO PRN ×2 (04:59→13:20)
[2022-02-13] MEDS: methylPREDNISolone SOD SUC 40 MG/1 ML VIAL IV SCH ×2 (05:00→18:06)
[2022-02-13 05:33] LABS: Basophils % 0.2 % (0.0-0.8); Hematocrit 27.2 VOL% (35.7-47.0); Hemoglobin 8.7 GM/DL (12.0-16.0); Immature Granulocytes % 5.5 %; Immature Granulocytes Absolute 0.54 #; Lymphocytes # 0.2 10*3/uL (1.4-4.0); Lymphocytes % 2.1 % (21.3-54.2); Mean Corpuscular Volume 98.9 FL (87-102); Mean Platelet Volume 10.5 FL (9.6-12.0); Monocytes # 0.3 10*3/uL (0.11-0.8); Monocytes % 2.6 % (1.7-12.7); NRBC # 0.16 10*3/uL; Neutrophils % 89.6 % (38.7-73.9); Platelet Count 280 T/CUMM (130-400); Red Blood Count 2.75 MC/CUMM (3.8-5.5); White Blood Count 9.8 T/CUMM (4-12)
[2022-02-13 05:40] LABS: Calcium 8.9 MG/DL (8.5-10.1); Osmolality,Calculated 290.1 MOS/KG (273-304); Potassium 3.5 MMOL/L (3.5-5.1)
[2022-02-13] MEDS: LEVOTHYROXINE 150 MCG TABLET PO SCH (06:00)
[2022-02-13 06:15] LABS: Anisocytosis 2+; Band Neutrophils 1 % (0-10); Lymphocytes 5 % (20-55); Nucleated Red Blood Cells 6 /100 WBC (0-5); Platelet Estimate Normal; Total Cells Counted 100
[2022-02-13 06:16] LABS: Basophilic Stippling Slight; Macrocytosis 1+; Ovalocytes Few; Tear Drop Cells Few
[2022-02-13] MEDS ORDERED: VANCOMYCIN INJ 2,000 MG in SODIUM CHLORIDE 0.9% 500 ML IV PRN ×2 (09:00→11:00)
[2022-02-13] MEDS: allopurinoL 100 MG TABLET PO SCH (10:06)
[2022-02-13] MEDS: FUROSEMIDE 80 MG TABLET PO SCH ×2 (10:06→21:55)
[2022-02-13] MEDS: DOCUSATE SODIUM 100 MG CAPSULE PO SCH ×2 (10:07→21:55)
[2022-02-13] MEDS: amLODIPine 5 MG TABLET PO SCH (10:07)
[2022-02-13] MEDS: FERROUS SULFATE 325 MG TABLET PO SCH (10:07)
[2022-02-13] MEDS: SERTRALINE 50 MG TABLET PO SCH (10:08)
[2022-02-13] MEDS: GABAPENTIN 300 MG CAPSULE PO SCH ×2 (10:08→21:55)
[2022-02-13] MEDS: FOLIC ACID 1 MG TABLET PO SCH (10:08)
[2022-02-13] MEDS: POTASSIUM CHLORIDE 20 MEQ TABLET PO SCH (10:08)
[2022-02-13] MEDS: CHOLECALCIFEROL 5,000 UNIT TABLET PO SCH (10:08)
[2022-02-13] MEDS: atenoloL 50 MG TABLET PO SCH (10:08)
[2022-02-13] MEDS: MAGNESIUM CHLORIDE 64 MG TABLET PO SCH ×2 (10:08→22:19)
[2022-02-13] MEDS: PANTOPRAZOLE 40 MG TABLET PO SCH (10:09)
[2022-02-13] MEDS: ESTRADIOL 1 MG TABLET PO SCH (10:09)
[2022-02-13] MEDS: VITAMIN E 400 UNIT CAPSULE PO SCH (10:09)
[2022-02-13] MEDS: HYDROXYCHLOROQUINE 200 MG TABLET PO SCH ×2 (10:09→21:54)
[2022-02-13] MEDS: INSULIN REGULAR ** CONC 500 UNIT/ML ** 20 ML VIAL SUBCUT SCH ×3 (10:10→16:28)
[2022-02-13] MEDS: KRILL OIL 500 MG PO SCH (10:30)
[2022-02-13] MEDS: ZINC SULFATE 220 MG CAPSULE PO SCH (10:36)
[2022-02-13] MEDS: MONTELUKAST 10 MG TABLET PO SCH (10:38)
[2022-02-13] MEDS: ENOXAPARIN 40 MG/0.4 ML SYRINGE SUBCUT SCH (13:20)
[2022-02-13] MEDS: IBUPROFEN 600 MG TABLET PO PRN (16:02)
[2022-02-13] MEDS ORDERED: VANCOMYCIN INJ 2,000 MG in SODIUM CHLORIDE 0.9% 500 ML IV ONE ×2 (18:00→22:00)
[2022-02-13] MEDS: ASPIRIN EC 325 MG TABLET PO SCH (21:55)
[2022-02-13] MEDS: ROSUVASTATIN 10 MG TABLET PO SCH (22:18)
[2022-02-13] MEDS: OMEPRAZOLE ODT 20 MG TABLET PO SCH (22:19)
[2022-02-14] MEDS: ALBUTEROL/IPRATROPIUM 3 ML NEB RESP TX SCH ×4 (00:47→19:38)
[2022-02-14] MEDS: MEROPENEM 500 MG in SODIUM CHLORIDE 0.9% 100 ML IV SCH ×3 (05:55→20:29)
[2022-02-14] MEDS: LEVOTHYROXINE 150 MCG TABLET PO SCH (05:56)
[2022-02-14] MEDS: methylPREDNISolone SOD SUC 40 MG/1 ML VIAL IV SCH ×2 (05:56→17:08)
[2022-02-14] MEDS: allopurinoL 100 MG TABLET PO SCH (10:14)
[2022-02-14] MEDS: DOCUSATE SODIUM 100 MG CAPSULE PO SCH ×2 (10:14→20:29)
[2022-02-14] MEDS: ZINC SULFATE 220 MG CAPSULE PO SCH (10:14)
[2022-02-14] MEDS: amLODIPine 5 MG TABLET PO SCH (10:14)
[2022-02-14] MEDS: FOLIC ACID 1 MG TABLET PO SCH (10:15)
[2022-02-14] MEDS: MAGNESIUM CHLORIDE 64 MG TABLET PO SCH ×2 (10:15→20:28)
[2022-02-14] MEDS: atenoloL 50 MG TABLET PO SCH (10:15)
[2022-02-14] MEDS: ESTRADIOL 1 MG TABLET PO SCH (10:15)
[2022-02-14] MEDS: VITAMIN E 400 UNIT CAPSULE PO SCH (10:15)
[2022-02-14] MEDS: POTASSIUM CHLORIDE 20 MEQ TABLET PO SCH (10:16)
[2022-02-14] MEDS: FUROSEMIDE 80 MG TABLET PO SCH ×2 (10:16→17:15)
[2022-02-14] MEDS: MONTELUKAST 10 MG TABLET PO SCH (10:16)
[2022-02-14] MEDS: CHOLECALCIFEROL 5,000 UNIT TABLET PO SCH (10:17)
[2022-02-14] MEDS: GABAPENTIN 300 MG CAPSULE PO SCH ×2 (10:17→20:28)
[2022-02-14] MEDS: HYDROXYCHLOROQUINE 200 MG TABLET PO SCH ×2 (10:17→20:29)
[2022-02-14] MEDS: FERROUS SULFATE 325 MG TABLET PO SCH (10:17)
[2022-02-14] MEDS: INSULIN REGULAR ** CONC 500 UNIT/ML ** 20 ML VIAL SUBCUT SCH ×3 (10:17→17:08)
[2022-02-14] MEDS: PANTOPRAZOLE 40 MG TABLET PO SCH (10:17)
[2022-02-14] MEDS: SERTRALINE 50 MG TABLET PO SCH (10:18)
[2022-02-14] MEDS: KRILL OIL 500 MG PO SCH ×2 (12:12→13:30)
[2022-02-14] MEDS: ENOXAPARIN 40 MG/0.4 ML SYRINGE SUBCUT SCH (14:15)
[2022-02-14] MEDS: ROSUVASTATIN 10 MG TABLET PO SCH (20:28)
[2022-02-14] MEDS: OMEPRAZOLE ODT 20 MG TABLET PO SCH (20:28)
[2022-02-14] MEDS: ASPIRIN EC 325 MG TABLET PO SCH (20:28)
[2022-02-15] MEDS: ALBUTEROL/IPRATROPIUM 3 ML NEB RESP TX SCH ×4 (00:06→19:20)
[2022-02-15] MEDS: methylPREDNISolone SOD SUC 40 MG/1 ML VIAL IV SCH (05:42)
[2022-02-15] MEDS: LEVOTHYROXINE 150 MCG TABLET PO SCH (05:42)
[2022-02-15] MEDS: MEROPENEM 500 MG in SODIUM CHLORIDE 0.9% 100 ML IV SCH ×3 (05:43→20:20)
[2022-02-15] MEDS ORDERED: VANCOMYCIN INJ 2,000 MG in SODIUM CHLORIDE 0.9% 500 ML IV ONE ×2 (09:00→16:00)
[2022-02-15] MEDS: SERTRALINE 50 MG TABLET PO SCH (09:08)
[2022-02-15] MEDS: GABAPENTIN 300 MG CAPSULE PO SCH ×2 (09:08→20:22)
[2022-02-15] MEDS: amLODIPine 5 MG TABLET PO SCH (09:08)
[2022-02-15] MEDS: POTASSIUM CHLORIDE 20 MEQ TABLET PO SCH (09:08)
[2022-02-15] MEDS: ZINC SULFATE 220 MG CAPSULE PO SCH (09:09)
[2022-02-15] MEDS: ESTRADIOL 1 MG TABLET PO SCH (09:09)
[2022-02-15] MEDS: FERROUS SULFATE 325 MG TABLET PO SCH (09:09)
[2022-02-15] MEDS: CHOLECALCIFEROL 5,000 UNIT TABLET PO SCH (09:09)
[2022-02-15] MEDS: FUROSEMIDE 80 MG TABLET PO SCH ×2 (09:10→16:46)
[2022-02-15] MEDS: HYDROXYCHLOROQUINE 200 MG TABLET PO SCH ×2 (09:10→20:22)
[2022-02-15] MEDS: MONTELUKAST 10 MG TABLET PO SCH (09:10)
[2022-02-15] MEDS: atenoloL 50 MG TABLET PO SCH (09:10)
[2022-02-15] MEDS: VITAMIN E 400 UNIT CAPSULE PO SCH (09:10)
[2022-02-15] MEDS: allopurinoL 100 MG TABLET PO SCH (09:10)
[2022-02-15] MEDS: MAGNESIUM CHLORIDE 64 MG TABLET PO SCH ×2 (09:10→20:22)
[2022-02-15] MEDS: INSULIN REGULAR ** CONC 500 UNIT/ML ** 20 ML VIAL SUBCUT SCH ×3 (09:11→16:46)
[2022-02-15] MEDS: FOLIC ACID 1 MG TABLET PO SCH (09:11)
[2022-02-15] MEDS: DOCUSATE SODIUM 100 MG CAPSULE PO SCH ×2 (09:11→20:23)
[2022-02-15] MEDS: KRILL OIL 500 MG PO SCH (09:12)
[2022-02-15] MEDS: PANTOPRAZOLE 40 MG TABLET PO SCH (09:12)
[2022-02-15] MEDS: ENOXAPARIN 40 MG/0.4 ML SYRINGE SUBCUT SCH (14:22)
[2022-02-15] MEDS: OMEPRAZOLE ODT 20 MG TABLET PO SCH (20:22)
[2022-02-15] MEDS: ASPIRIN EC 325 MG TABLET PO SCH (20:22)
[2022-02-15] MEDS: ROSUVASTATIN 10 MG TABLET PO SCH (20:23)
[2022-02-16] MEDS: ALBUTEROL/IPRATROPIUM 3 ML NEB RESP TX SCH ×3 (00:51→13:12)
[2022-02-16] MEDS: MEROPENEM 500 MG in SODIUM CHLORIDE 0.9% 100 ML IV SCH (05:50)
[2022-02-16] MEDS: LEVOTHYROXINE 150 MCG TABLET PO SCH (05:50)
[2022-02-16] MEDS ORDERED: predniSONE 10 MG TABLET PO SCH (09:00)
[2022-02-16] MEDS: KRILL OIL 500 MG PO SCH (09:13)
[2022-02-16] MEDS: INSULIN REGULAR ** CONC 500 UNIT/ML ** 20 ML VIAL SUBCUT SCH (09:16)
[2022-02-16] MEDS: VITAMIN E 400 UNIT CAPSULE PO SCH (09:16)
[2022-02-16] MEDS: MAGNESIUM CHLORIDE 64 MG TABLET PO SCH (09:16)
[2022-02-16] MEDS: HYDROXYCHLOROQUINE 200 MG TABLET PO SCH (09:16)
[2022-02-16] MEDS: FUROSEMIDE 80 MG TABLET PO SCH (09:16)
[2022-02-16] MEDS: ESTRADIOL 1 MG TABLET PO SCH (09:16)
[2022-02-16] MEDS: amLODIPine 5 MG TABLET PO SCH (09:17)
[2022-02-16] MEDS: GABAPENTIN 300 MG CAPSULE PO SCH (09:17)
[2022-02-16] MEDS: FERROUS SULFATE 325 MG TABLET PO SCH (09:17)
[2022-02-16] MEDS: ZINC SULFATE 220 MG CAPSULE PO SCH (09:17)
[2022-02-16] MEDS: MONTELUKAST 10 MG TABLET PO SCH (09:17)
[2022-02-16] MEDS: SERTRALINE 50 MG TABLET PO SCH (09:17)
[2022-02-16] MEDS: POTASSIUM CHLORIDE 20 MEQ TABLET PO SCH (09:17)
[2022-02-16] MEDS: PANTOPRAZOLE 40 MG TABLET PO SCH (09:17)
[2022-02-16] MEDS: CHOLECALCIFEROL 5,000 UNIT TABLET PO SCH (09:17)
[2022-02-16] MEDS: FOLIC ACID 1 MG TABLET PO SCH (09:17)
[2022-02-16] MEDS: atenoloL 50 MG TABLET PO SCH (09:17)
[2022-02-16] MEDS: DOCUSATE SODIUM 100 MG CAPSULE PO SCH (09:21)
[2022-02-16] MEDS: allopurinoL 100 MG TABLET PO SCH (09:21)
[2022-02-16 12:13] VITALS: BP 126/61
== END 2022-02-16 14:20 | disposition home or self-care (01) | DRG 177 ==
LOC: N.CC 11:55 → N.3E 02-10 03:26
PROVIDERS: ADMIT Family Medicine; ATTEND Family Medicine

== ENCOUNTER 2022-06-20 14:26 | Inpatient (IN) ==
[2022-06-20] MEDS ORDERED: ALBUTEROL 2.5 MG/3 ML NEB RESP TX STA (14:59)
[2022-06-20 15:32] LABS: Arterial Base Excess iSTAT -3 MMOL/L (-2.5-2.5); Arterial Bicarbonate iSTAT 21.4 MMOL/L (20-26); Arterial O2 Saturation iSTAT 92 % (95-100); Arterial PCO2 iSTAT 34 MM HG (35-48); Arterial PO2 iSTAT 62 MM HG (80-95); Arterial Total CO2 iSTAT 22 MMO/L (23-27); Arterial pH iSTAT 7.413 (7.35-7.45)
[2022-06-20 15:38] LABS: Basophils % 0.1 % (0.0-0.8); Hematocrit 21.1 VOL% (35.7-47.0); Immature Granulocytes % 0.8 %; Immature Granulocytes Absolute 0.06 #; Lymphocytes # 0.2 10*3/uL (1.4-4.0); Lymphocytes % 3.2 % (21.3-54.2); Mean Corpuscular HGB Conc 29.9 GM/DL (32-36); Mean Corpuscular Volume 116.6 FL (87-102); Mean Platelet Volume 10.8 FL (9.6-12.0); Monocytes # 0.3 10*3/uL (0.11-0.8); Monocytes % 4.5 % (1.7-12.7); NRBC # 0.36 10*3/uL; Neutrophils % 91.4 % (38.7-73.9); Platelet Count 193 T/CUMM (130-400); Red Blood Count 1.81 MC/CUMM (3.8-5.5); Red Cell Distribution Width 24.9 % (9.3-17.3); White Blood Count 7.1 T/CUMM (4-12)
[2022-06-20 15:40] LABS: Hemoglobin 6.3 GM/DL (12.0-16.0)
[2022-06-20 15:52] LABS: INR 1.1; PT Patient Result 12.1 SECS (10.1-12.1); Partial Thromboplastin Time 29.3 SECS (23.7-32.9)
[2022-06-20 15:55] LABS: Albumin 3.2 G/DL (3.4-5.0); Bilirubin,Total 0.7 MG/DL (0.20-1.00); Calcium 8.1 MG/DL (8.5-10.1); Osmolality,Calculated 302.2 MOS/KG (273-304); Potassium 4.1 MMOL/L (3.5-5.1); Total Protein 6.9 G/DL (6.4-8.2)
[2022-06-20] MEDS ORDERED: PIPERACILLIN/TAZOBACTAM 3,375 MG in SODIUM CHLORIDE 0.9% 100 ML IV STA (16:13)
[2022-06-20] MEDS ORDERED: methylPREDNISolone SOD SUC 125 MG/2 ML VIAL IV STA (16:13)
[2022-06-20 16:24] LABS: Band Neutrophils 7 % (0-10); Lymphocytes 2 % (20-55); Nucleated Red Blood Cells 2 /100 WBC (0-5)
[2022-06-20 16:25] LABS: Macrocytosis 1+; Ovalocytes Few; Polychromasia 1+; Tear Drop Cells Slight
[2022-06-20 16:26] LABS: Platelet Estimate Normal
[2022-06-20 16:27] LABS: Total Cells Counted 100
[2022-06-20] MEDS ORDERED: ONDANSETRON 4 MG/2 ML VIAL IV PRN (18:15)
[2022-06-20] MEDS ORDERED: SODIUM CHLORIDE 0.9% 1,000 ML IV PRN (19:48)
[2022-06-20] MEDS: MAGNESIUM CHLORIDE 64 MG TABLET PO SCH (22:19)
[2022-06-20] MEDS: ASPIRIN EC 325 MG TABLET PO SCH (22:19)
[2022-06-20] MEDS: metOLazone 2.5 MG TABLET PO SCH (22:19)
[2022-06-20] MEDS: HYDROXYCHLOROQUINE 200 MG TABLET PO SCH (22:19)
[2022-06-20] MEDS: DOCUSATE SODIUM 100 MG CAPSULE PO SCH ×2 (22:20)
[2022-06-20] MEDS: GABAPENTIN 300 MG CAPSULE PO SCH (22:20)
[2022-06-20] MEDS: INSULIN REGULAR 100 UNIT/ML SUBCUT SCH (22:21)
[2022-06-20] MEDS: ROSUVASTATIN 10 MG TABLET PO SCH (22:25)
[2022-06-21] MEDS: ALBUTEROL/IPRATROPIUM 3 ML NEB RESP TX SCH ×4 (01:46→19:36)
[2022-06-21] MEDS ORDERED: FUROSEMIDE 20 MG/2 ML VIAL IV ONE (04:30)
[2022-06-21 06:09] LABS: Basophils % 0.2 % (0.0-0.8); Hematocrit 22.7 VOL% (35.7-47.0); Hemoglobin 6.7 GM/DL (12.0-16.0); Immature Granulocytes % 1.1 %; Immature Granulocytes Absolute 0.06 #; Lymphocytes # 0.4 10*3/uL (1.4-4.0); Lymphocytes % 6.6 % (21.3-54.2); Mean Corpuscular HGB Conc 29.5 GM/DL (32-36); Mean Corpuscular Volume 115.2 FL (87-102); Mean Platelet Volume 10.7 FL (9.6-12.0); Monocytes # 0.1 10*3/uL (0.11-0.8); Monocytes % 1.5 % (1.7-12.7); NRBC # 0.17 10*3/uL; Neutrophils % 90.6 % (38.7-73.9); Platelet Count 149 T/CUMM (130-400); Red Blood Count 1.97 MC/CUMM (3.8-5.5); White Blood Count 5.3 T/CUMM (4-12)
[2022-06-21 06:33] LABS: Band Neutrophils 1 % (0-10); Lymphocytes 3 % (20-55); Nucleated Red Blood Cells 3 /100 WBC (0-5); Total Cells Counted 100
[2022-06-21 06:34] LABS: Anisocytosis 1+; Macrocytosis 1+; Ovalocytes Few; Polychromasia Slight; Tear Drop Cells Few
[2022-06-21 06:35] LABS: Platelet Estimate Adequate
[2022-06-21 06:36] LABS: Calcium 8.5 MG/DL (8.5-10.1); Osmolality,Calculated 304.2 MOS/KG (273-304)
[2022-06-21] MEDS: LEVOTHYROXINE 150 MCG TABLET PO SCH (06:39)
[2022-06-21 06:45] LABS: Thyroid Stimulating Hormone 1.07 uIU/ml (0.358-3.74); Uric Acid 10.4 MG/DL (2.6-6.0)
[2022-06-21] MEDS ORDERED: INSULIN REGULAR ** CONC 500 UNIT/ML ** 3 ML VIAL SUBCUT SCH ×6 (08:00→17:00)
[2022-06-21] MEDS ORDERED: PIOGLITAZONE 15 MG TABLET PO SCH (09:00)
[2022-06-21] MEDS: SODIUM CHLORIDE 0.9% 1,000 ML IV SCH ×4 (09:18→21:17)
[2022-06-21] MEDS: DOCUSATE SODIUM 100 MG CAPSULE PO SCH ×3 (09:29→21:18)
[2022-06-21] MEDS: GABAPENTIN 300 MG CAPSULE PO SCH ×2 (09:30→21:19)
[2022-06-21] MEDS: HYDROXYCHLOROQUINE 200 MG TABLET PO SCH ×2 (09:30→21:19)
[2022-06-21] MEDS: PANTOPRAZOLE 40 MG TABLET PO SCH (09:30)
[2022-06-21] MEDS: atenoloL 50 MG TABLET PO SCH (09:30)
[2022-06-21] MEDS: FERROUS SULFATE 325 MG TABLET PO SCH (09:31)
[2022-06-21] MEDS: POTASSIUM CHLORIDE 20 MEQ TABLET PO SCH (09:31)
[2022-06-21] MEDS: amLODIPine 5 MG TABLET PO SCH (09:31)
[2022-06-21] MEDS: FOLIC ACID 1 MG TABLET PO SCH (09:31)
[2022-06-21] MEDS: SERTRALINE 50 MG TABLET PO SCH (09:31)
[2022-06-21] MEDS: allopurinoL 300 MG TABLET PO SCH (09:31)
[2022-06-21] MEDS: FUROSEMIDE 40 MG/4 ML VIAL IV SCH (09:31)
[2022-06-21] MEDS: ESTRADIOL 2 MG TABLET PO SCH (09:31)
[2022-06-21] MEDS: MONTELUKAST 10 MG TABLET PO SCH (09:31)
[2022-06-21] MEDS: INSULIN REGULAR 100 UNIT/ML SUBCUT SCH ×4 (09:32→21:19)
[2022-06-21] MEDS: MAGNESIUM CHLORIDE 64 MG TABLET PO SCH ×2 (09:40→21:19)
[2022-06-21 12:24] LABS: Hematocrit 24.6 VOL% (35.7-47.0); Hemoglobin 7.6 GM/DL (12.0-16.0)
[2022-06-21] MEDS ORDERED: FUROSEMIDE 40 MG/4 ML VIAL IV ONE ×2 (12:57→18:47)
[2022-06-21 13:45] LABS: Calcium 8.5 MG/DL (8.5-10.1); Osmolality,Calculated 302.8 MOS/KG (273-304); Potassium 3.8 MMOL/L (3.5-5.1)
[2022-06-21 19:38] LABS: Arterial Base Excess iSTAT -2 MMOL/L (-2.5-2.5); Arterial Bicarbonate iSTAT 24.1 MMOL/L (20-26); Arterial O2 Saturation iSTAT 100 % (95-100); Arterial PCO2 iSTAT 45 MM HG (35-48); Arterial PO2 iSTAT 253 MM HG (80-95); Arterial Total CO2 iSTAT 25 MMO/L (23-27); Arterial pH iSTAT 7.334 (7.35-7.45)
[2022-06-21] MEDS: ROSUVASTATIN 10 MG TABLET PO SCH (21:19)
[2022-06-21] MEDS: ASPIRIN EC 325 MG TABLET PO SCH (21:19)
[2022-06-21] MEDS: MUPIROCIN 2% OINT 22 GM TUBE TOP SCH (21:19)
[2022-06-21] MEDS: DEXTROSE 10% 250 ML BAG IV PRN ×2 (21:52→23:24)
[2022-06-21] MEDS: MORPHINE 2 MG/1 ML SYRINGE IV PRN (23:23)
[2022-06-21] MEDS: HYDROCORTISONE 100 MG VIAL IV SCH (23:35)
[2022-06-22] MEDS ORDERED: PROMETHAZINE 25 MG/1 ML VIAL IM PRN (00:11)
[2022-06-22] MEDS ORDERED: DEXTROSE 50% 25 GM/50 ML SYRINGE IV ONE ×3 (01:47→05:00)
[2022-06-22] MEDS ORDERED: LORazepam 2 MG/1 ML VIAL ONE (02:00)
[2022-06-22 02:23] LABS: Hematocrit 26.5 VOL% (35.7-47.0); Hemoglobin 8.1 GM/DL (12.0-16.0); Immature Granulocytes % 0.5 %; Immature Granulocytes Absolute 0.06 #; Lymphocytes # 0.3 10*3/uL (1.4-4.0); Lymphocytes % 2.1 % (21.3-54.2); Mean Corpuscular HGB Conc 30.6 GM/DL (32-36); Mean Corpuscular Volume 111.3 FL (87-102); Mean Platelet Volume 10.6 FL (9.6-12.0); Monocytes # 1.1 10*3/uL (0.11-0.8); NRBC # 0.21 10*3/uL; Neutrophils % 88.4 % (38.7-73.9); Platelet Count 180 T/CUMM (130-400); Red Blood Count 2.38 MC/CUMM (3.8-5.5); Red Cell Distribution Width 24.3 % (9.3-17.3)
[2022-06-22] MEDS ORDERED: LORazepam 2 MG/1 ML VIAL IV ONE (02:30)
[2022-06-22 02:46] LABS: Calcium 8.1 MG/DL (8.5-10.1); Osmolality,Calculated 300.8 MOS/KG (273-304); Potassium 3.9 MMOL/L (3.5-5.1)
[2022-06-22 03:09] LABS: Hypochromia Slight; Lymphocytes 4 % (20-55); Macrocytosis Slight; Platelet Estimate Adequate; Polychromasia Slight; Total Cells Counted 100
[2022-06-22] MEDS ORDERED: PIPERACILLIN/TAZOBACTAM 3,375 MG in SODIUM CHLORIDE 0.9% 100 ML IV SCH (03:30)
[2022-06-22] MEDS ORDERED: DEXTROSE 10% 1,000 ML IV SCH (03:30)
[2022-06-22] MEDS: CEFEPIME 1,000 MG in SODIUM CHLORIDE 0.9% 100 ML IV SCH ×2 (04:19→15:31)
[2022-06-22] MEDS: LEVOTHYROXINE 150 MCG TABLET PO SCH ×2 (06:04→06:58)
[2022-06-22 07:18] LABS: Arterial Base Excess iSTAT -3 MMOL/L (-2.5-2.5); Arterial Bicarbonate iSTAT 23.1 MMOL/L (20-26); Arterial O2 Saturation iSTAT 89 % (95-100); Arterial PCO2 iSTAT 43 MM HG (35-48); Arterial PO2 iSTAT 61 MM HG (80-95); Arterial Total CO2 iSTAT 24 MMO/L (23-27); Arterial pH iSTAT 7.337 (7.35-7.45)
[2022-06-22] MEDS: ALBUTEROL/IPRATROPIUM 3 ML NEB RESP TX SCH ×4 (07:18→19:08)
[2022-06-22] MEDS ORDERED: INSULIN REGULAR ** CONC 500 UNIT/ML ** 3 ML VIAL SUBCUT SCH (08:00)
[2022-06-22] MEDS: INSULIN REGULAR 100 UNIT/ML SUBCUT SCH ×4 (08:01→20:14)
[2022-06-22] MEDS: amLODIPine 5 MG TABLET PO SCH (08:37)
[2022-06-22] MEDS: MAGNESIUM CHLORIDE 64 MG TABLET PO SCH ×2 (08:37→20:51)
[2022-06-22] MEDS: FUROSEMIDE 40 MG/4 ML VIAL IV SCH (08:37)
[2022-06-22] MEDS: MONTELUKAST 10 MG TABLET PO SCH (08:38)
[2022-06-22] MEDS: SERTRALINE 50 MG TABLET PO SCH (08:38)
[2022-06-22] MEDS: PANTOPRAZOLE 40 MG TABLET PO SCH (08:38)
[2022-06-22] MEDS: POTASSIUM CHLORIDE 20 MEQ TABLET PO SCH (08:38)
[2022-06-22] MEDS: FOLIC ACID 1 MG TABLET PO SCH (08:38)
[2022-06-22] MEDS: atenoloL 50 MG TABLET PO SCH (08:38)
[2022-06-22] MEDS: GABAPENTIN 300 MG CAPSULE PO SCH ×2 (08:38→20:51)
[2022-06-22] MEDS: FERROUS SULFATE 325 MG TABLET PO SCH (08:38)
[2022-06-22] MEDS: DOCUSATE SODIUM 100 MG CAPSULE PO SCH ×2 (08:38→20:51)
[2022-06-22] MEDS: ESTRADIOL 2 MG TABLET PO SCH (08:38)
[2022-06-22] MEDS: allopurinoL 300 MG TABLET PO SCH (08:38)
[2022-06-22] MEDS: HYDROXYCHLOROQUINE 200 MG TABLET PO SCH ×2 (08:38→20:51)
[2022-06-22] MEDS: MUPIROCIN 2% OINT 22 GM TUBE TOP SCH ×2 (08:38→20:51)
[2022-06-22] MEDS: HYDROCORTISONE 100 MG VIAL IV SCH ×3 (08:43→22:34)
[2022-06-22] MEDS ORDERED: FUROSEMIDE 40 MG/4 ML VIAL IV ONE (09:17)
[2022-06-22] MEDS: MORPHINE 2 MG/1 ML SYRINGE IV PRN (16:47)
[2022-06-22] MEDS: ROSUVASTATIN 10 MG TABLET PO SCH (20:50)
[2022-06-22] MEDS: metOLazone 2.5 MG TABLET PO SCH (20:51)
[2022-06-22] MEDS: ASPIRIN EC 325 MG TABLET PO SCH (20:51)
[2022-06-23] MEDS: INSULIN REGULAR 100 UNIT/ML SUBCUT SCH ×6 (00:20→20:16)
[2022-06-23] MEDS: ALBUTEROL/IPRATROPIUM 3 ML NEB RESP TX SCH ×4 (00:28→19:00)
[2022-06-23] MEDS: MORPHINE 2 MG/1 ML SYRINGE IV PRN ×6 (01:22→23:05)
[2022-06-23 01:52] LABS: Hemoglobin 7.8 GM/DL (12.0-16.0); Immature Granulocytes % 0.7 %; Immature Granulocytes Absolute 0.08 #; Lymphocytes # 0.3 10*3/uL (1.4-4.0); Lymphocytes % 2.3 % (21.3-54.2); Mean Corpuscular Volume 112.1 FL (87-102); Mean Platelet Volume 10.6 FL (9.6-12.0); Monocytes # 1.1 10*3/uL (0.11-0.8); Monocytes % 9.9 % (1.7-12.7); NRBC # 0.11 10*3/uL; Neutrophils % 87.1 % (38.7-73.9); Platelet Count 162 T/CUMM (130-400); Red Blood Count 2.32 MC/CUMM (3.8-5.5); Red Cell Distribution Width 23.6 % (9.3-17.3); White Blood Count 10.9 T/CUMM (4-12)
[2022-06-23] MEDS: methylPREDNISolone SOD SUC 125 MG/2 ML VIAL IV SCH ×3 (02:07→17:20)
[2022-06-23] MEDS: CEFEPIME 1,000 MG in SODIUM CHLORIDE 0.9% 100 ML IV SCH ×2 (02:35→14:48)
[2022-06-23 03:34] LABS: Platelet Estimate Adequate; Total Cells Counted 100
[2022-06-23 03:35] LABS: Hypochromia Slight; Ovalocytes Slight
[2022-06-23 03:36] LABS: Macrocytosis Slight
[2022-06-23 04:15] LABS: Osmolality,Calculated 314.5 MOS/KG (273-304); Potassium 3.9 MMOL/L (3.5-5.1)
[2022-06-23] MEDS: ALBUTEROL 2.5 MG/3 ML NEB RESP TX PRN ×4 (05:30→19:00)
[2022-06-23] MEDS: LEVOTHYROXINE 150 MCG TABLET PO SCH (05:52)
[2022-06-23] MEDS: amLODIPine 5 MG TABLET PO SCH (08:25)
[2022-06-23] MEDS: FUROSEMIDE 100 MG/10 ML VIAL IV SCH (08:25)
[2022-06-23] MEDS: DOCUSATE SODIUM 100 MG CAPSULE PO SCH ×2 (08:26→20:16)
[2022-06-23] MEDS: POTASSIUM CHLORIDE 20 MEQ TABLET PO SCH (08:26)
[2022-06-23] MEDS: HYDROXYCHLOROQUINE 200 MG TABLET PO SCH ×2 (08:26→20:16)
[2022-06-23] MEDS: ESTRADIOL 2 MG TABLET PO SCH (08:26)
[2022-06-23] MEDS: PANTOPRAZOLE 40 MG TABLET PO SCH (08:27)
[2022-06-23] MEDS: atenoloL 50 MG TABLET PO SCH (08:27)
[2022-06-23] MEDS: allopurinoL 300 MG TABLET PO SCH (08:27)
[2022-06-23] MEDS: MONTELUKAST 10 MG TABLET PO SCH (08:27)
[2022-06-23] MEDS: GABAPENTIN 300 MG CAPSULE PO SCH ×2 (08:27→20:16)
[2022-06-23] MEDS: FOLIC ACID 1 MG TABLET PO SCH (08:27)
[2022-06-23] MEDS: FERROUS SULFATE 325 MG TABLET PO SCH (08:27)
[2022-06-23] MEDS: SERTRALINE 50 MG TABLET PO SCH (08:27)
[2022-06-23] MEDS: MAGNESIUM CHLORIDE 64 MG TABLET PO SCH ×2 (08:28→20:16)
[2022-06-23] MEDS: MUPIROCIN 2% OINT 22 GM TUBE TOP SCH ×2 (08:28→20:20)
[2022-06-23] MEDS: ASPIRIN EC 325 MG TABLET PO SCH (20:16)
[2022-06-23] MEDS: ROSUVASTATIN 10 MG TABLET PO SCH (20:16)
[2022-06-24] MEDS: INSULIN REGULAR 100 UNIT/ML SUBCUT SCH ×6 (00:09→22:01)
[2022-06-24] MEDS: methylPREDNISolone SOD SUC 125 MG/2 ML VIAL IV SCH ×3 (02:46→17:49)
[2022-06-24] MEDS: CEFEPIME 1,000 MG in SODIUM CHLORIDE 0.9% 100 ML IV SCH ×2 (02:47→16:14)
[2022-06-24 03:48] LABS: Arterial Base Excess iSTAT -1 MMOL/L (-2.5-2.5); Arterial Bicarbonate iSTAT 24.6 MMOL/L (20-26); Arterial O2 Saturation iSTAT 83 % (95-100); Arterial PCO2 iSTAT 44 MM HG (35-48); Arterial PO2 iSTAT 50 MM HG (80-95); Arterial Total CO2 iSTAT 26 MMO/L (23-27); Arterial pH iSTAT 7.353 (7.35-7.45)
[2022-06-24 04:00] LABS: Calcium 8.1 MG/DL (8.5-10.1); Osmolality,Calculated 319.7 MOS/KG (273-304); Potassium 3.8 MMOL/L (3.5-5.1)
[2022-06-24 04:08] LABS: Basophils % 0.2 % (0.0-0.8); Hematocrit 25.9 VOL% (35.7-47.0); Hemoglobin 7.7 GM/DL (12.0-16.0); Immature Granulocytes % 0.8 %; Immature Granulocytes Absolute 0.05 #; Lymphocytes # 0.2 10*3/uL (1.4-4.0); Lymphocytes % 3.5 % (21.3-54.2); Mean Corpuscular HGB Conc 29.7 GM/DL (32-36); Mean Corpuscular Volume 113.1 FL (87-102); Mean Platelet Volume 10.9 FL (9.6-12.0); Monocytes # 0.3 10*3/uL (0.11-0.8); Monocytes % 4.7 % (1.7-12.7); NRBC # 0.07 10*3/uL; Neutrophils % 90.8 % (38.7-73.9); Platelet Count 165 T/CUMM (130-400); Red Blood Count 2.29 MC/CUMM (3.8-5.5); White Blood Count 6.7 T/CUMM (4-12)
[2022-06-24 04:38] LABS: Lymphocytes 2 % (20-55); Nucleated Red Blood Cells 1 /100 WBC (0-5); Platelet Estimate Decreased; Total Cells Counted 100
[2022-06-24] MEDS: LEVOTHYROXINE 150 MCG TABLET PO SCH (06:25)
[2022-06-24] MEDS: ALBUTEROL/IPRATROPIUM 3 ML NEB RESP TX SCH ×4 (07:18→19:19)
[2022-06-24] MEDS: MAGNESIUM CHLORIDE 64 MG TABLET PO SCH ×2 (08:47→22:00)
[2022-06-24] MEDS: HYDROXYCHLOROQUINE 200 MG TABLET PO SCH ×2 (08:47→22:00)
[2022-06-24] MEDS: GABAPENTIN 300 MG CAPSULE PO SCH ×2 (08:47→22:00)
[2022-06-24] MEDS: atenoloL 50 MG TABLET PO SCH (08:47)
[2022-06-24] MEDS: FOLIC ACID 1 MG TABLET PO SCH (08:48)
[2022-06-24] MEDS: DOCUSATE SODIUM 100 MG CAPSULE PO SCH ×2 (08:48→22:00)
[2022-06-24] MEDS: POTASSIUM CHLORIDE 20 MEQ TABLET PO SCH (08:48)
[2022-06-24] MEDS: MONTELUKAST 10 MG TABLET PO SCH (08:48)
[2022-06-24] MEDS: PANTOPRAZOLE 40 MG TABLET PO SCH (08:49)
[2022-06-24] MEDS: SERTRALINE 50 MG TABLET PO SCH (08:49)
[2022-06-24] MEDS: amLODIPine 5 MG TABLET PO SCH (08:49)
[2022-06-24] MEDS: FERROUS SULFATE 325 MG TABLET PO SCH (08:50)
[2022-06-24] MEDS: ESTRADIOL 2 MG TABLET PO SCH (08:51)
[2022-06-24] MEDS: FUROSEMIDE 100 MG/10 ML VIAL IV SCH (08:51)
[2022-06-24] MEDS: allopurinoL 300 MG TABLET PO SCH (08:51)
[2022-06-24] MEDS: ENOXAPARIN 30 MG/0.3 ML SYRINGE SUBCUT SCH (12:25)
[2022-06-24] MEDS: MORPHINE 2 MG/1 ML SYRINGE IV PRN (12:37)
[2022-06-24] MEDS ORDERED: MORPHINE 2 MG/1 ML SYRINGE IV PRN (12:41)
[2022-06-24] MEDS ORDERED: INSULIN REGULAR ** CONC 500 UNIT/ML ** 3 ML VIAL SUBCUT SCH (13:00)
[2022-06-24] MEDS: MUPIROCIN 2% OINT 22 GM TUBE TOP SCH ×2 (16:21→22:18)
[2022-06-24] MEDS ORDERED: ROCURONIUM 100 MG/10 ML VIAL IV ONE ×2 (16:35)
[2022-06-24] MEDS ORDERED: ETOMIDATE 20 MG/10 ML VIAL IV ONE ×2 (16:35)
[2022-06-24] MEDS ORDERED: NITROGLYCERIN DRIP 50 MG/250 ML BOTTLE IV PRN (17:15)
[2022-06-24 17:46] LABS: ABG Base Excess -2.4 MMOL/L (-2.5-2.5); ABG HCO3 21.9 MMOL/L (20-26); ABG Oxygen Saturation 70.2 % (95-100); ABG PO2 51.1 MM HG (80-95)
[2022-06-24 17:50] LABS: ABG PH 7.183 (7.35-7.45)
[2022-06-24] MEDS: NITROGLYCERIN DRIP 50 MG/250 ML BOTTLE IV SCH (17:52)
[2022-06-24] MEDS: fentaNYL INJ 1,250 MCG in SODIUM CHLORIDE 0.9% 225 ML IV PRN ×2 (17:56→23:33)
[2022-06-24] MEDS: ROSUVASTATIN 10 MG TABLET PO SCH (22:00)
[2022-06-24] MEDS: ASPIRIN EC 325 MG TABLET PO SCH (22:00)
[2022-06-24] MEDS: metOLazone 2.5 MG TABLET PO SCH (22:00)
[2022-06-25] MEDS: ALBUTEROL/IPRATROPIUM 3 ML NEB RESP TX SCH ×4 (00:12→19:34)
[2022-06-25] MEDS: INSULIN REGULAR 100 UNIT/ML SUBCUT SCH ×6 (00:30→20:40)
[2022-06-25] MEDS: methylPREDNISolone SOD SUC 125 MG/2 ML VIAL IV SCH ×3 (03:05→19:13)
[2022-06-25] MEDS: fentaNYL INJ 1,250 MCG in SODIUM CHLORIDE 0.9% 225 ML IV PRN ×7 (03:08→23:45)
[2022-06-25] MEDS: CEFEPIME 1,000 MG in SODIUM CHLORIDE 0.9% 100 ML IV SCH ×2 (03:31→14:33)
[2022-06-25 03:45] LABS: ABG Base Excess -1.8 MMOL/L (-2.5-2.5); ABG HCO3 22.9 MMOL/L (20-26); ABG Oxygen Saturation 96.8 % (95-100); ABG PCO2 57.5 MM HG (35-48); ABG PH 7.259 (7.35-7.45); ABG PO2 97.2 MM HG (80-95); ABG TCO2 24.4 MMOL/L (23-27)
[2022-06-25 04:00] LABS: Hematocrit 26.1 VOL% (35.7-47.0); Hemoglobin 7.8 GM/DL (12.0-16.0); Immature Granulocytes % 1.3 %; Immature Granulocytes Absolute 0.09 #; Lymphocytes # 0.2 10*3/uL (1.4-4.0); Lymphocytes % 3.5 % (21.3-54.2); Mean Corpuscular HGB Conc 29.9 GM/DL (32-36); Mean Platelet Volume 10.6 FL (9.6-12.0); Monocytes # 0.4 10*3/uL (0.11-0.8); Monocytes % 6.3 % (1.7-12.7); NRBC # 0.13 10*3/uL; Neutrophils % 88.9 % (38.7-73.9); Platelet Count 179 T/CUMM (130-400); Red Blood Count 2.33 MC/CUMM (3.8-5.5); Red Cell Distribution Width 20.5 % (9.3-17.3); White Blood Count 6.8 T/CUMM (4-12)
[2022-06-25 04:04] LABS: Calcium 8.4 MG/DL (8.5-10.1); Osmolality,Calculated 327.7 MOS/KG (273-304); Potassium 4.4 MMOL/L (3.5-5.1)
[2022-06-25 04:26] LABS: Anisocytosis Slight; Hypochromia Slight; Lymphocytes 2 % (20-55); Nucleated Red Blood Cells 1 /100 WBC (0-5); Platelet Estimate Adequate; Total Cells Counted 100
[2022-06-25 04:30] LABS: Macrocytosis Slight
[2022-06-25] MEDS: ALBUTEROL 2.5 MG/3 ML NEB RESP TX PRN (04:32)
[2022-06-25] MEDS ORDERED: MIDAZOLAM 2 MG/2 ML VIAL IV ONE ×2 (05:54→06:20)
[2022-06-25] MEDS: LEVOTHYROXINE 150 MCG TABLET PO SCH (06:00)
[2022-06-25] MEDS ORDERED: INSULIN REGULAR ** CONC 500 UNIT/ML ** 3 ML VIAL SUBCUT SCH ×3 (06:30→17:00)
[2022-06-25] MEDS: MAGNESIUM CHLORIDE 64 MG TABLET PO SCH ×2 (09:03→20:42)
[2022-06-25] MEDS: amLODIPine 5 MG TABLET PO SCH (09:10)
[2022-06-25] MEDS: PANTOPRAZOLE 40 MG TABLET PO SCH (09:11)
[2022-06-25] MEDS: ESTRADIOL 2 MG TABLET PO SCH (09:11)
[2022-06-25] MEDS: MONTELUKAST 10 MG TABLET PO SCH (09:11)
[2022-06-25] MEDS: FERROUS SULFATE 325 MG TABLET PO SCH (09:12)
[2022-06-25] MEDS: atenoloL 50 MG TABLET PO SCH (09:12)
[2022-06-25] MEDS: allopurinoL 300 MG TABLET PO SCH (09:12)
[2022-06-25] MEDS: FOLIC ACID 1 MG TABLET PO SCH (09:12)
[2022-06-25] MEDS: GABAPENTIN 300 MG CAPSULE PO SCH ×2 (09:13→20:42)
[2022-06-25] MEDS: HYDROXYCHLOROQUINE 200 MG TABLET PO SCH ×2 (09:13→20:42)
[2022-06-25] MEDS: SERTRALINE 50 MG TABLET PO SCH (09:13)
[2022-06-25] MEDS: DOCUSATE SODIUM 100 MG CAPSULE PO SCH ×2 (09:14→20:41)
[2022-06-25] MEDS: POTASSIUM CHLORIDE 20 MEQ TABLET PO SCH (09:14)
[2022-06-25] MEDS ORDERED: ROCURONIUM 100 MG/10 ML VIAL IV ONE (09:24)
[2022-06-25] MEDS: MUPIROCIN 2% OINT 22 GM TUBE TOP SCH ×2 (10:10→20:41)
[2022-06-25] MEDS: ENOXAPARIN 30 MG/0.3 ML SYRINGE SUBCUT SCH (10:23)
[2022-06-25] MEDS: ROCURONIUM 500 MG in SODIUM CHLORIDE 0.9% 500 ML IV PRN ×3 (10:52→23:20)
[2022-06-25] MEDS: MIDAZOLAM DRIP 100 MG/100 ML PREMIX IV PRN (10:53)
[2022-06-25] MEDS: LINEZOLID INJ 600 MG/300 ML PREMIX IV SCH (13:01)
[2022-06-25] MEDS: MICAFUNGIN 100 MG in SODIUM CHLORIDE 0.9% 100 ML IV SCH (13:09)
[2022-06-25] MEDS ORDERED: INSULIN REGULAR ** CONC 500 UNIT/ML ** 3 ML VIAL SUBCUT ONE ×2 (16:30→17:00)
[2022-06-25] MEDS: NITROGLYCERIN DRIP 50 MG/250 ML BOTTLE IV SCH (19:13)
[2022-06-25] MEDS: ASPIRIN EC 325 MG TABLET PO SCH (20:41)
[2022-06-25] MEDS: ROSUVASTATIN 10 MG TABLET PO SCH (20:41)
[2022-06-26] MEDS: INSULIN REGULAR 100 UNIT/ML SUBCUT SCH ×6 (00:10→20:30)
[2022-06-26] MEDS: LINEZOLID INJ 600 MG/300 ML PREMIX IV SCH ×2 (00:10→11:00)
[2022-06-26] MEDS ORDERED: NOREPINEPHRINE DRIP 8 MG/250 ML PREMIX IV ONE (00:37)
[2022-06-26] MEDS ORDERED: NOREPINEPHRINE DRIP 8 MG/250 ML PREMIX IV PRN (00:40)
[2022-06-26] MEDS: methylPREDNISolone SOD SUC 125 MG/2 ML VIAL IV SCH ×3 (03:15→18:25)
[2022-06-26] MEDS: CEFEPIME 1,000 MG in SODIUM CHLORIDE 0.9% 100 ML IV SCH ×2 (03:25→15:00)
[2022-06-26] MEDS: ALBUTEROL/IPRATROPIUM 3 ML NEB RESP TX SCH ×5 (03:52→23:21)
[2022-06-26 04:01] LABS: ABG Base Excess -4.2 MMOL/L (-2.5-2.5); ABG HCO3 20.9 MMOL/L (20-26); ABG Oxygen Saturation 98.4 % (95-100); ABG PCO2 61.3 MM HG (35-48); ABG PH 7.205 (7.35-7.45); ABG TCO2 23.2 MMOL/L (23-27)
[2022-06-26 04:15] LABS: Calcium 7.8 MG/DL (8.5-10.1); Osmolality,Calculated 331.5 MOS/KG (273-304); Potassium 4.6 MMOL/L (3.5-5.1)
[2022-06-26 06:15] LABS: Basophils % 0.2 % (0.0-0.8); Hematocrit 26.1 VOL% (35.7-47.0); Hemoglobin 7.7 GM/DL (12.0-16.0); Immature Granulocytes % 2.9 %; Immature Granulocytes Absolute 0.14 #; Lymphocytes # 0.4 10*3/uL (1.4-4.0); Lymphocytes % 8.4 % (21.3-54.2); Mean Corpuscular HGB Conc 29.5 GM/DL (32-36); Mean Corpuscular Volume 111.5 FL (87-102); Monocytes # 0.4 10*3/uL (0.11-0.8); Monocytes % 8.1 % (1.7-12.7); NRBC # 0.19 10*3/uL; Neutrophils % 80.4 % (38.7-73.9); Platelet Count 162 T/CUMM (130-400); Red Blood Count 2.34 MC/CUMM (3.8-5.5); Red Cell Distribution Width 19.2 % (9.3-17.3); White Blood Count 4.8 T/CUMM (4-12)
[2022-06-26] MEDS: LEVOTHYROXINE 150 MCG TABLET PO SCH (06:40)
[2022-06-26] MEDS: fentaNYL INJ 1,250 MCG in SODIUM CHLORIDE 0.9% 225 ML IV PRN ×3 (08:21→22:25)
[2022-06-26] MEDS: MUPIROCIN 2% OINT 22 GM TUBE TOP SCH ×2 (08:22→20:45)
[2022-06-26] MEDS ORDERED: MAGNESIUM SULF RIDER 2 GM/50 ML PREMIX IV PRN (08:32)
[2022-06-26] MEDS ORDERED: POTASSIUM BICARB EFFERVESCENT 20 MEQ TAB.EFF PER TUBE PRN (08:32)
[2022-06-26] MEDS ORDERED: MAGNESIUM SULF RIDER 4 GM/100 ML PREMIX IV PRN (08:32)
[2022-06-26] MEDS: atenoloL 50 MG TABLET PO SCH (08:44)
[2022-06-26] MEDS: DOCUSATE SODIUM 100 MG/10 ML UDCUP PO SCH ×2 (08:44→20:31)
[2022-06-26] MEDS: PANTOPRAZOLE 40 MG TABLET PO SCH (08:44)
[2022-06-26] MEDS: GABAPENTIN 300 MG CAPSULE PO SCH ×2 (08:45→20:31)
[2022-06-26] MEDS: FOLIC ACID 1 MG TABLET PO SCH (08:45)
[2022-06-26] MEDS: allopurinoL 300 MG TABLET PO SCH (08:45)
[2022-06-26] MEDS: HYDROXYCHLOROQUINE 200 MG TABLET PO SCH ×2 (08:45→20:31)
[2022-06-26] MEDS: ESTRADIOL 2 MG TABLET PO SCH (08:46)
[2022-06-26] MEDS: MONTELUKAST 10 MG TABLET PO SCH (08:46)
[2022-06-26] MEDS: SERTRALINE 50 MG TABLET PO SCH (08:46)
[2022-06-26] MEDS: FERROUS SULFATE 325 MG TABLET PO SCH (08:46)
[2022-06-26] MEDS: amLODIPine 5 MG TABLET PO SCH (08:47)
[2022-06-26] MEDS: MIDAZOLAM DRIP 100 MG/100 ML PREMIX IV PRN (08:55)
[2022-06-26] MEDS ORDERED: LACTATED RINGERS 1,000 ML IV SCH (10:00)
[2022-06-26 10:41] LABS: ABG Base Excess -3.4 MMOL/L (-2.5-2.5); ABG HCO3 21.5 MMOL/L (20-26); ABG Oxygen Saturation 99.1 % (95-100); ABG PCO2 54.5 MM HG (35-48); ABG PH 7.254 (7.35-7.45); ABG TCO2 22.7 MMOL/L (23-27)
[2022-06-26] MEDS: ENOXAPARIN 30 MG/0.3 ML SYRINGE SUBCUT SCH (11:07)
[2022-06-26] MEDS: INSULIN REGULAR ** CONC 500 UNIT/ML ** 3 ML VIAL SUBCUT SCH (11:10)
[2022-06-26] MEDS: MICAFUNGIN 100 MG in SODIUM CHLORIDE 0.9% 100 ML IV SCH (12:17)
[2022-06-26] MEDS: ROCURONIUM 500 MG in SODIUM CHLORIDE 0.9% 500 ML IV PRN (12:20)
[2022-06-26] MEDS: METOCLOPRAMIDE 10 MG/2 ML VIAL IV SCH ×2 (14:58→20:30)
[2022-06-26] MEDS: SODIUM CHLORIDE 0.9% 1,000 ML IV SCH (16:15)
[2022-06-26] MEDS: NITROGLYCERIN DRIP 50 MG/250 ML BOTTLE IV SCH (16:20)
[2022-06-26] MEDS: ROSUVASTATIN 10 MG TABLET PO SCH (20:31)
[2022-06-26] MEDS: ASPIRIN EC 325 MG TABLET PO SCH (20:31)
[2022-06-27] MEDS: LINEZOLID INJ 600 MG/300 ML PREMIX IV SCH ×3 (00:10→23:56)
[2022-06-27] MEDS: INSULIN REGULAR 100 UNIT/ML SUBCUT SCH ×7 (00:18→23:56)
[2022-06-27] MEDS: ROCURONIUM 500 MG in SODIUM CHLORIDE 0.9% 500 ML IV PRN ×3 (00:20→17:36)
[2022-06-27] MEDS: SODIUM CHLORIDE 0.9% 1,000 ML IV SCH (01:13)
[2022-06-27] MEDS: METOCLOPRAMIDE 10 MG/2 ML VIAL IV SCH ×4 (02:15→20:20)
[2022-06-27] MEDS: methylPREDNISolone SOD SUC 125 MG/2 ML VIAL IV SCH ×3 (02:15→17:14)
[2022-06-27] MEDS: CEFEPIME 1,000 MG in SODIUM CHLORIDE 0.9% 100 ML IV SCH ×2 (02:37→15:00)
[2022-06-27 04:50] LABS: ABG HCO3 20.2 MMOL/L (20-26); ABG Oxygen Saturation 93.6 % (95-100); ABG PCO2 48.3 MM HG (35-48); ABG PH 7.268 (7.35-7.45); ABG PO2 78.4 MM HG (80-95); ABG TCO2 20.4 MMOL/L (23-27)
[2022-06-27 04:54] LABS: Hematocrit 25.4 VOL% (35.7-47.0); Hemoglobin 7.7 GM/DL (12.0-16.0); Immature Granulocytes % 2.5 %; Immature Granulocytes Absolute 0.13 #; Lymphocytes # 0.3 10*3/uL (1.4-4.0); Lymphocytes % 6.4 % (21.3-54.2); Mean Corpuscular HGB Conc 30.3 GM/DL (32-36); Mean Corpuscular Volume 108.1 FL (87-102); Mean Platelet Volume 11.1 FL (9.6-12.0); Monocytes # 0.3 10*3/uL (0.11-0.8); Monocytes % 5.1 % (1.7-12.7); NRBC # 0.09 10*3/uL; Platelet Count 145 T/CUMM (130-400); Red Blood Count 2.35 MC/CUMM (3.8-5.5); Red Cell Distribution Width 18.9 % (9.3-17.3); White Blood Count 5.3 T/CUMM (4-12)
[2022-06-27 05:07] LABS: Calcium 7.2 MG/DL (8.5-10.1); Osmolality,Calculated 333.3 MOS/KG (273-304); Potassium 4.2 MMOL/L (3.5-5.1)
[2022-06-27] MEDS: fentaNYL INJ 1,250 MCG in SODIUM CHLORIDE 0.9% 225 ML IV PRN ×2 (05:35→15:12)
[2022-06-27] MEDS: LEVOTHYROXINE 150 MCG TABLET PO SCH (06:19)
[2022-06-27] MEDS: ALBUTEROL/IPRATROPIUM 3 ML NEB RESP TX SCH ×3 (07:00→19:44)
[2022-06-27] MEDS: amLODIPine 5 MG TABLET PO SCH (08:19)
[2022-06-27] MEDS: GABAPENTIN 300 MG CAPSULE PO SCH ×2 (08:19→20:19)
[2022-06-27] MEDS: FERROUS SULFATE 325 MG TABLET PO SCH (08:19)
[2022-06-27] MEDS: allopurinoL 300 MG TABLET PO SCH (08:19)
[2022-06-27] MEDS: HYDROXYCHLOROQUINE 200 MG TABLET PO SCH ×2 (08:19→20:19)
[2022-06-27] MEDS: FOLIC ACID 1 MG TABLET PO SCH (08:19)
[2022-06-27] MEDS: MONTELUKAST 10 MG TABLET PO SCH (08:19)
[2022-06-27] MEDS: DOCUSATE SODIUM 100 MG/10 ML UDCUP PO SCH ×2 (08:19→20:23)
[2022-06-27] MEDS: PANTOPRAZOLE 40 MG TABLET PO SCH (08:19)
[2022-06-27] MEDS: SERTRALINE 50 MG TABLET PO SCH (08:19)
[2022-06-27] MEDS: ESTRADIOL 2 MG TABLET PO SCH (08:19)
[2022-06-27] MEDS: atenoloL 50 MG TABLET PO SCH (08:19)
[2022-06-27] MEDS: MUPIROCIN 2% OINT 22 GM TUBE TOP SCH ×2 (08:24→20:24)
[2022-06-27] MEDS ORDERED: METHOTREXATE 2.5 MG TABLET PO SCH (09:00)
[2022-06-27] MEDS: INSULIN REGULAR ** CONC 500 UNIT/ML ** 3 ML VIAL SUBCUT SCH (09:00)
[2022-06-27] MEDS: ENOXAPARIN 30 MG/0.3 ML SYRINGE SUBCUT SCH (10:00)
[2022-06-27] MEDS: MICAFUNGIN 100 MG in SODIUM CHLORIDE 0.9% 100 ML IV SCH (12:11)
[2022-06-27] MEDS: MIDAZOLAM DRIP 100 MG/100 ML PREMIX IV PRN (12:28)
[2022-06-27] MEDS: MINERAL OIL/PETROLATUM OPH OINT 3.5 GM TUBE BOTH EYES SCH ×2 (15:00→20:24)
[2022-06-27] MEDS: NITROGLYCERIN DRIP 50 MG/250 ML BOTTLE IV SCH (17:04)
[2022-06-27] MEDS: ROSUVASTATIN 10 MG TABLET PO SCH (20:19)
[2022-06-27] MEDS: metOLazone 2.5 MG TABLET PO SCH (20:19)
[2022-06-27] MEDS: ASPIRIN EC 325 MG TABLET PO SCH (20:19)
[2022-06-28] MEDS: ALBUTEROL/IPRATROPIUM 3 ML NEB RESP TX SCH ×4 (00:05→18:49)
[2022-06-28] MEDS: METOCLOPRAMIDE 10 MG/2 ML VIAL IV SCH ×4 (01:49→20:35)
[2022-06-28] MEDS: methylPREDNISolone SOD SUC 125 MG/2 ML VIAL IV SCH ×3 (01:50→17:01)
[2022-06-28 03:22] LABS: ABG Base Excess -6.7 MMOL/L (-2.5-2.5); ABG HCO3 18.8 MMOL/L (20-26); ABG Oxygen Saturation 90.5 % (95-100); ABG PCO2 51.1 MM HG (35-48); ABG PH 7.225 (7.35-7.45); ABG TCO2 19.7 MMOL/L (23-27)
[2022-06-28] MEDS: fentaNYL INJ 1,250 MCG in SODIUM CHLORIDE 0.9% 225 ML IV PRN ×2 (03:26→11:07)
[2022-06-28 03:30] LABS: Basophils % 0.1 % (0.0-0.8); Hematocrit 26.7 VOL% (35.7-47.0); Immature Granulocytes % 3.1 %; Immature Granulocytes Absolute 0.24 #; Lymphocytes # 0.2 10*3/uL (1.4-4.0); Lymphocytes % 2.8 % (21.3-54.2); Mean Corpuscular Volume 109.9 FL (87-102); Mean Platelet Volume 11.1 FL (9.6-12.0); Monocytes # 0.4 10*3/uL (0.11-0.8); Monocytes % 4.6 % (1.7-12.7); NRBC # 0.22 10*3/uL; Neutrophils % 89.4 % (38.7-73.9); Platelet Count 146 T/CUMM (130-400); Red Blood Count 2.43 MC/CUMM (3.8-5.5); Red Cell Distribution Width 18.7 % (9.3-17.3); White Blood Count 7.8 T/CUMM (4-12)
[2022-06-28 03:35] LABS: Calcium 7.1 MG/DL (8.5-10.1); Osmolality,Calculated 337.4 MOS/KG (273-304); Potassium 4.8 MMOL/L (3.5-5.1)
[2022-06-28 04:03] LABS: Hypochromia Slight; Lymphocytes 1 % (20-55); Nucleated Red Blood Cells 5 /100 WBC (0-5); Platelet Estimate Adequate; Total Cells Counted 100
[2022-06-28] MEDS: CEFEPIME 1,000 MG in SODIUM CHLORIDE 0.9% 100 ML IV SCH ×2 (04:11→15:01)
[2022-06-28] MEDS: INSULIN REGULAR 100 UNIT/ML SUBCUT SCH ×5 (04:12→20:34)
[2022-06-28] MEDS: LEVOTHYROXINE 150 MCG TABLET PO SCH (06:23)
[2022-06-28] MEDS: GABAPENTIN 300 MG CAPSULE PO SCH ×2 (08:39→20:23)
[2022-06-28] MEDS: MONTELUKAST 10 MG TABLET PO SCH (08:39)
[2022-06-28] MEDS: FERROUS SULFATE 325 MG TABLET PO SCH (08:39)
[2022-06-28] MEDS: allopurinoL 300 MG TABLET PO SCH (08:39)
[2022-06-28] MEDS: FAMOTIDINE 20 MG/2 ML VIAL IV SCH (08:39)
[2022-06-28] MEDS: FOLIC ACID 1 MG TABLET PO SCH (08:39)
[2022-06-28] MEDS: HYDROXYCHLOROQUINE 200 MG TABLET PO SCH ×2 (08:39→20:34)
[2022-06-28] MEDS: SERTRALINE 50 MG TABLET PO SCH (08:39)
[2022-06-28] MEDS: DOCUSATE SODIUM 100 MG/10 ML UDCUP PO SCH ×2 (08:39→20:34)
[2022-06-28] MEDS: ESTRADIOL 2 MG TABLET PO SCH (08:39)
[2022-06-28] MEDS: MUPIROCIN 2% OINT 22 GM TUBE TOP SCH ×2 (08:43→20:36)
[2022-06-28] MEDS: MINERAL OIL/PETROLATUM OPH OINT 3.5 GM TUBE BOTH EYES SCH ×2 (08:43→20:35)
[2022-06-28] MEDS: MIDAZOLAM DRIP 100 MG/100 ML PREMIX IV PRN ×2 (08:59→21:12)
[2022-06-28] MEDS: atenoloL 50 MG TABLET PO SCH (09:05)
[2022-06-28] MEDS: NITROGLYCERIN DRIP 50 MG/250 ML BOTTLE IV SCH (10:05)
[2022-06-28] MEDS: ENOXAPARIN 30 MG/0.3 ML SYRINGE SUBCUT SCH (10:52)
[2022-06-28] MEDS: LINEZOLID INJ 600 MG/300 ML PREMIX IV SCH (11:09)
[2022-06-28 11:13] LABS: ABG Base Excess -6.8 MMOL/L (-2.5-2.5); ABG HCO3 18.7 MMOL/L (20-26); ABG Oxygen Saturation 92.2 % (95-100); ABG PCO2 52.1 MM HG (35-48); ABG PH 7.214 (7.35-7.45); ABG PO2 75.6 MM HG (80-95)
[2022-06-28] MEDS: amLODIPine 5 MG TABLET PO SCH (11:48)
[2022-06-28] MEDS: MICAFUNGIN 100 MG in SODIUM CHLORIDE 0.9% 100 ML IV SCH (12:11)
[2022-06-28] MEDS ORDERED: ALBUMIN 5% 12.5 GM/250 ML VIAL IV ONE (17:09)
[2022-06-28] MEDS: ROCURONIUM 500 MG in SODIUM CHLORIDE 0.9% 500 ML IV PRN (19:20)
[2022-06-28] MEDS: ROSUVASTATIN 10 MG TABLET PO SCH (20:34)
[2022-06-28] MEDS: ASPIRIN EC 325 MG TABLET PO SCH (20:34)
[2022-06-28 20:44] LABS: Arterial Bicarbonate iSTAT 20.2 MMOL/L (20-26); Arterial pH iSTAT 7.206 (7.35-7.45)
[2022-06-28] MEDS: NOREPINEPHRINE DRIP 8 MG/250 ML PREMIX IV PRN (21:08)
[2022-06-29] MEDS: LINEZOLID INJ 600 MG/300 ML PREMIX IV SCH ×3 (00:06→23:39)
[2022-06-29] MEDS: INSULIN REGULAR 100 UNIT/ML SUBCUT SCH ×7 (00:06→23:13)
[2022-06-29] MEDS: ALBUTEROL/IPRATROPIUM 3 ML NEB RESP TX SCH ×4 (01:58→19:00)
[2022-06-29] MEDS: METOCLOPRAMIDE 10 MG/2 ML VIAL IV SCH ×4 (02:19→20:27)
[2022-06-29] MEDS: methylPREDNISolone SOD SUC 125 MG/2 ML VIAL IV SCH ×3 (02:20→18:23)
[2022-06-29 03:32] LABS: Arterial Bicarbonate iSTAT 19.8 MMOL/L (20-26); Arterial pH iSTAT 7.174 (7.35-7.45)
[2022-06-29] MEDS: CEFEPIME 1,000 MG in SODIUM CHLORIDE 0.9% 100 ML IV SCH ×2 (03:32→15:57)
[2022-06-29 03:55] LABS: Albumin 2.4 G/DL (3.4-5.0); Bilirubin,Direct 0.53 MG/DL (0.0-0.20); Bilirubin,Indirect 0.3 MG/DL (0.0-1.0); Bilirubin,Total 0.8 MG/DL (0.20-1.00); Calcium 6.4 MG/DL (8.5-10.1); Osmolality,Calculated 344.5 MOS/KG (273-304); Potassium 5.2 MMOL/L (3.5-5.1); Total Protein 5.3 G/DL (6.4-8.2)
[2022-06-29 03:56] LABS: Basophils # 0.1 10*3/uL (0.0-0.2); Basophils % 0.4 % (0.0-0.8); Hematocrit 31.7 VOL% (35.7-47.0); Hemoglobin 9.4 GM/DL (12.0-16.0); Immature Granulocytes % 5.6 %; Immature Granulocytes Absolute 1.23 #; Lymphocytes # 0.6 10*3/uL (1.4-4.0); Lymphocytes % 2.7 % (21.3-54.2); Mean Corpuscular HGB Conc 29.7 GM/DL (32-36); Mean Platelet Volume 11.1 FL (9.6-12.0); Monocytes # 1.4 10*3/uL (0.11-0.8); Monocytes % 6.5 % (1.7-12.7); NRBC # 2.16 10*3/uL; Neutrophils % 84.8 % (38.7-73.9); Red Blood Count 2.83 MC/CUMM (3.8-5.5); Red Cell Distribution Width 19.5 % (9.3-17.3)
[2022-06-29 03:58] LABS: Platelet Count 321 T/CUMM (130-400); White Blood Count 22.1 T/CUMM (4-12)
[2022-06-29] MEDS ORDERED: SODIUM BICARBONATE 50 MEQ/50 ML VIAL IV ONE ×2 (04:00→12:00)
[2022-06-29 04:04] LABS: Band Neutrophils 2 % (0-10); Lymphocytes 4 % (20-55); Nucleated Red Blood Cells 14 /100 WBC (0-5); Platelet Estimate Adequate; Total Cells Counted 100
[2022-06-29] MEDS: LEVOTHYROXINE 150 MCG TABLET PO SCH (06:23)
[2022-06-29 06:24] LABS: Arterial Bicarbonate iSTAT 20.3 MMOL/L (20-26); Arterial pH iSTAT 7.182 (7.35-7.45)
[2022-06-29] MEDS: DOCUSATE SODIUM 100 MG/10 ML UDCUP PO SCH ×2 (08:29→20:28)
[2022-06-29] MEDS: FAMOTIDINE 20 MG/2 ML VIAL IV SCH (08:31)
[2022-06-29] MEDS: MONTELUKAST 10 MG TABLET PO SCH (08:31)
[2022-06-29] MEDS: GABAPENTIN 300 MG CAPSULE PO SCH ×2 (08:31→20:28)
[2022-06-29] MEDS: ESTRADIOL 2 MG TABLET PO SCH (08:31)
[2022-06-29] MEDS: HYDROXYCHLOROQUINE 200 MG TABLET PO SCH ×2 (08:31→20:28)
[2022-06-29] MEDS: SERTRALINE 50 MG TABLET PO SCH (08:31)
[2022-06-29] MEDS: MUPIROCIN 2% OINT 22 GM TUBE TOP SCH ×2 (08:32→20:30)
[2022-06-29] MEDS: MINERAL OIL/PETROLATUM OPH OINT 3.5 GM TUBE BOTH EYES SCH ×2 (08:32→20:30)
[2022-06-29 09:38] LABS: Arterial Base Excess iSTAT -8 MMOL/L (-2.5-2.5); Arterial PO2 iSTAT 67 MM HG (80-95); Arterial pH iSTAT 7.177 (7.35-7.45)
[2022-06-29 09:39] LABS: Arterial O2 Saturation iSTAT 87 % (95-100); Arterial Total CO2 iSTAT 22 MMO/L (23-27)
[2022-06-29 09:40] LABS: Arterial Bicarbonate iSTAT 20.5 MMOL/L (20-26); Arterial PCO2 iSTAT 55 MM HG (35-48)
[2022-06-29] MEDS: NOREPINEPHRINE DRIP 8 MG/250 ML PREMIX IV PRN ×3 (10:30→21:38)
[2022-06-29] MEDS: ENOXAPARIN 30 MG/0.3 ML SYRINGE SUBCUT SCH (11:00)
[2022-06-29 11:48] LABS: ABG Base Excess -10.2 MMOL/L (-2.5-2.5); ABG HCO3 16.3 MMOL/L (20-26); ABG Oxygen Saturation 93.1 % (95-100); ABG PCO2 65.1 MM HG (35-48); ABG PO2 84.4 MM HG (80-95); ABG TCO2 19.4 MMOL/L (23-27)
[2022-06-29 11:50] LABS: ABG PH 7.109 (7.35-7.45)
[2022-06-29 12:35] LABS: Calcium 7.1 MG/DL (8.5-10.1); Potassium 5.9 MMOL/L (3.5-5.1)
[2022-06-29] MEDS ORDERED: NOREPINEPHRINE 16 MG in SODIUM CHLORIDE 0.9% 234 ML IV PRN (13:00)
[2022-06-29] MEDS: MICAFUNGIN 100 MG in SODIUM CHLORIDE 0.9% 100 ML IV SCH (13:59)
[2022-06-29 17:53] LABS: Hepatitis B Core IgM Quant 0.76 Index; Hepatitis B Surface Ag Quant < 0.10 Index; Hepatitis B Surface Ag Result Non-Reactive (NonReactive); Hepatitis C Virus Ab Quant < 0.02 Index; Hepatitis C Virus Ab Result Non-Reactive (NonReactive)
[2022-06-29] MEDS ORDERED: HEPARIN 10,000 UNIT/10 ML VIAL IV SCH (18:15)
[2022-06-29] MEDS: ASPIRIN EC 325 MG TABLET PO SCH (20:28)
[2022-06-29] MEDS ORDERED: NOREPINEPHRINE 32 MG in SODIUM CHLORIDE 0.9% 468 ML IV PRN (21:00)
[2022-06-30] MEDS: ALBUTEROL/IPRATROPIUM 3 ML NEB RESP TX SCH ×4 (00:20→19:16)
[2022-06-30] MEDS: methylPREDNISolone SOD SUC 125 MG/2 ML VIAL IV SCH ×3 (01:42→18:44)
[2022-06-30] MEDS: METOCLOPRAMIDE 10 MG/2 ML VIAL IV SCH ×4 (01:42→23:45)
[2022-06-30 03:43] LABS: ABG Base Excess -5.4 MMOL/L (-2.5-2.5); ABG HCO3 19.9 MMOL/L (20-26); ABG PCO2 60.7 MM HG (35-48); ABG TCO2 22.2 MMOL/L (23-27)
[2022-06-30 03:46] LABS: ABG PH 7.192 (7.35-7.45)
[2022-06-30] MEDS: CEFEPIME 1,000 MG in SODIUM CHLORIDE 0.9% 100 ML IV SCH ×2 (03:46→15:45)
[2022-06-30] MEDS: INSULIN REGULAR 100 UNIT/ML SUBCUT SCH ×6 (03:47→23:45)
[2022-06-30 04:00] LABS: Calcium 7.1 MG/DL (8.5-10.1); Osmolality,Calculated 347.8 MOS/KG (273-304); Potassium 5.8 MMOL/L (3.5-5.1)
[2022-06-30] MEDS: LEVOTHYROXINE 150 MCG TABLET PO SCH (06:16)
[2022-06-30 08:12] LABS: INR 1.3; PT Patient Result 14.3 SECS (10.1-12.1)
[2022-06-30 08:16] LABS: Basophils % 0.1 % (0.0-0.8); Hematocrit 25.3 VOL% (35.7-47.0); Hemoglobin 7.8 GM/DL (12.0-16.0); Immature Granulocytes % 2.3 %; Immature Granulocytes Absolute 0.41 #; Lymphocytes # 0.7 10*3/uL (1.4-4.0); Lymphocytes % 3.7 % (21.3-54.2); Mean Corpuscular HGB Conc 30.8 GM/DL (32-36); Mean Corpuscular Volume 106.8 FL (87-102); Mean Platelet Volume 11.3 FL (9.6-12.0); Monocytes # 0.8 10*3/uL (0.11-0.8); Monocytes % 4.3 % (1.7-12.7); Neutrophils % 89.6 % (38.7-73.9); Red Blood Count 2.37 MC/CUMM (3.8-5.5); Red Cell Distribution Width 19.4 % (9.3-17.3)
[2022-06-30 08:26] LABS: Calcium 6.9 MG/DL (8.5-10.1); Osmolality,Calculated 351.7 MOS/KG (273-304); Platelet Count 153 T/CUMM (130-400); Potassium 5.9 MMOL/L (3.5-5.1)
[2022-06-30 08:35] LABS: Hypochromia Slight; Lymphocytes 3 % (20-55); Nucleated Red Blood Cells 1 /100 WBC (0-5); Platelet Estimate Adequate; Total Cells Counted 100
[2022-06-30] MEDS ORDERED: INSULIN GLARGINE 100 UNIT/ML SUBCUT SCH (09:00)
[2022-06-30] MEDS: DOCUSATE SODIUM 100 MG/10 ML UDCUP PO SCH ×2 (09:22→20:27)
[2022-06-30] MEDS: ESTRADIOL 2 MG TABLET PO SCH (09:24)
[2022-06-30] MEDS: MUPIROCIN 2% OINT 22 GM TUBE TOP SCH ×2 (09:24→20:52)
[2022-06-30] MEDS: MINERAL OIL/PETROLATUM OPH OINT 3.5 GM TUBE BOTH EYES SCH ×2 (09:25→20:51)
[2022-06-30] MEDS: HYDROXYCHLOROQUINE 200 MG TABLET PO SCH ×2 (09:25→20:26)
[2022-06-30] MEDS: MONTELUKAST 10 MG TABLET PO SCH (09:25)
[2022-06-30] MEDS: SERTRALINE 50 MG TABLET PO SCH (09:25)
[2022-06-30] MEDS: GABAPENTIN 300 MG CAPSULE PO SCH ×2 (09:25→20:27)
[2022-06-30] MEDS: FAMOTIDINE 20 MG/2 ML VIAL IV SCH (09:26)
[2022-06-30] MEDS: LINEZOLID INJ 600 MG/300 ML PREMIX IV SCH ×2 (11:51→23:50)
[2022-06-30] MEDS: MICAFUNGIN 100 MG in SODIUM CHLORIDE 0.9% 100 ML IV SCH (13:49)
[2022-06-30] MEDS: NOREPINEPHRINE DRIP 8 MG/250 ML PREMIX IV PRN (14:45)
[2022-06-30 16:35] LABS: Arterial Bicarbonate iSTAT 26.3 MMOL/L (20-26); Arterial pH iSTAT 7.282 (7.35-7.45)
[2022-06-30] MEDS: INSULIN GLARGINE 100 UNIT/ML SUBCUT SCH (20:27)
[2022-06-30] MEDS: ASPIRIN EC 325 MG TABLET PO SCH (20:27)
[2022-07-01] MEDS: ALBUTEROL/IPRATROPIUM 3 ML NEB RESP TX SCH ×4 (00:22→19:06)
[2022-07-01] MEDS: methylPREDNISolone SOD SUC 125 MG/2 ML VIAL IV SCH ×2 (03:20→09:10)
[2022-07-01] MEDS: CEFEPIME 1,000 MG in SODIUM CHLORIDE 0.9% 100 ML IV SCH ×2 (03:24→15:30)
[2022-07-01 04:00] LABS: Arterial Base Excess iSTAT -3 MMOL/L (-2.5-2.5); Arterial Bicarbonate iSTAT 23.2 MMOL/L (20-26); Arterial O2 Saturation iSTAT 96 % (95-100); Arterial PCO2 iSTAT 49 MM HG (35-48); Arterial PO2 iSTAT 95 MM HG (80-95); Arterial Total CO2 iSTAT 25 MMO/L (23-27); Arterial pH iSTAT 7.285 (7.35-7.45)
[2022-07-01 04:04] LABS: Basophils % 0.1 % (0.0-0.8); Hematocrit 21.6 VOL% (35.7-47.0); Hemoglobin 6.6 GM/DL (12.0-16.0); Lymphocytes # 0.7 10*3/uL (1.4-4.0); Lymphocytes % 4.2 % (21.3-54.2); Mean Corpuscular HGB Conc 30.6 GM/DL (32-36); Mean Corpuscular Volume 106.4 FL (87-102); Mean Platelet Volume 11.7 FL (9.6-12.0); Monocytes # 0.7 10*3/uL (0.11-0.8); Monocytes % 4.4 % (1.7-12.7); NRBC # 0.51 10*3/uL; Neutrophils % 88.3 % (38.7-73.9); Platelet Count 144 T/CUMM (130-400); Red Blood Count 2.03 MC/CUMM (3.8-5.5); Red Cell Distribution Width 18.6 % (9.3-17.3); White Blood Count 16.5 T/CUMM (4-12)
[2022-07-01] MEDS: INSULIN REGULAR 100 UNIT/ML SUBCUT SCH ×6 (04:06→23:56)
[2022-07-01 04:21] LABS: Albumin 2.2 G/DL (3.4-5.0); Calcium 6.9 MG/DL (8.5-10.1); Osmolality,Calculated 324.1 MOS/KG (273-304); Potassium 5.4 MMOL/L (3.5-5.1); Total Protein 5.2 G/DL (6.4-8.2)
[2022-07-01 04:40] LABS: Lymphocytes 1 % (20-55); Nucleated Red Blood Cells 1 /100 WBC (0-5); Total Cells Counted 100
[2022-07-01 04:41] LABS: Anisocytosis 1+; Ovalocytes Slight; Platelet Estimate Adequate; Polychromasia Slight
[2022-07-01] MEDS ORDERED: SODIUM CHLORIDE 0.9% 1,000 ML IV PRN (04:52)
[2022-07-01] MEDS: METOCLOPRAMIDE 10 MG/2 ML VIAL IV SCH ×4 (06:05→23:57)
[2022-07-01] MEDS: LEVOTHYROXINE 150 MCG TABLET PO SCH (06:07)
[2022-07-01] MEDS: ESTRADIOL 2 MG TABLET PO SCH (08:30)
[2022-07-01] MEDS: MUPIROCIN 2% OINT 22 GM TUBE TOP SCH ×2 (08:30→20:10)
[2022-07-01] MEDS: MINERAL OIL/PETROLATUM OPH OINT 3.5 GM TUBE BOTH EYES SCH ×2 (08:30→20:10)
[2022-07-01] MEDS: MONTELUKAST 10 MG TABLET PO SCH (08:30)
[2022-07-01] MEDS: DOCUSATE SODIUM 100 MG/10 ML UDCUP PO SCH ×2 (08:30→20:10)
[2022-07-01] MEDS: INSULIN GLARGINE 100 UNIT/ML SUBCUT SCH ×2 (08:30→20:11)
[2022-07-01] MEDS: SERTRALINE 50 MG TABLET PO SCH (08:30)
[2022-07-01] MEDS: HYDROXYCHLOROQUINE 200 MG TABLET PO SCH ×2 (08:30→20:11)
[2022-07-01] MEDS: FAMOTIDINE 20 MG/2 ML VIAL IV SCH (08:30)
[2022-07-01] MEDS: GABAPENTIN 300 MG CAPSULE PO SCH ×2 (08:46→20:11)
[2022-07-01] MEDS: LINEZOLID INJ 600 MG/300 ML PREMIX IV SCH ×2 (11:00→23:56)
[2022-07-01] MEDS: NOREPINEPHRINE DRIP 8 MG/250 ML PREMIX IV PRN (13:21)
[2022-07-01] MEDS: methylPREDNISolone SOD SUC 40 MG/1 ML VIAL IV SCH (17:00)
[2022-07-01] MEDS: ASPIRIN EC 325 MG TABLET PO SCH (20:10)
[2022-07-01 20:45] LABS: Hematocrit 24.5 VOL% (35.7-47.0); Hemoglobin 7.9 GM/DL (12.0-16.0)
[2022-07-02] MEDS: ALBUTEROL/IPRATROPIUM 3 ML NEB RESP TX SCH ×4 (00:30→19:39)
[2022-07-02] MEDS: methylPREDNISolone SOD SUC 40 MG/1 ML VIAL IV SCH ×3 (00:52→17:10)
[2022-07-02] MEDS: CEFEPIME 1,000 MG in SODIUM CHLORIDE 0.9% 100 ML IV SCH ×2 (04:07→15:15)
[2022-07-02] MEDS: INSULIN REGULAR 100 UNIT/ML SUBCUT SCH ×6 (04:29→20:22)
[2022-07-02 04:38] LABS: ABG HCO3 21.1 MMOL/L (20-26); ABG Oxygen Saturation 99.3 % (95-100); ABG PCO2 50.3 MM HG (35-48); ABG PH 7.273 (7.35-7.45); ABG TCO2 21.3 MMOL/L (23-27)
[2022-07-02 04:43] LABS: Basophils % 0.1 % (0.0-0.8); Hematocrit 25.5 VOL% (35.7-47.0); Hemoglobin 8.1 GM/DL (12.0-16.0); Immature Granulocytes % 2.9 %; Immature Granulocytes Absolute 0.47 #; Lymphocytes # 0.6 10*3/uL (1.4-4.0); Lymphocytes % 3.6 % (21.3-54.2); Mean Corpuscular HGB Conc 31.8 GM/DL (32-36); Mean Platelet Volume 11.9 FL (9.6-12.0); Monocytes # 0.6 10*3/uL (0.11-0.8); Monocytes % 3.9 % (1.7-12.7); NRBC # 0.37 10*3/uL; Neutrophils % 89.5 % (38.7-73.9); Platelet Count 105 T/CUMM (130-400); Red Blood Count 2.55 MC/CUMM (3.8-5.5); Red Cell Distribution Width 19.9 % (9.3-17.3); White Blood Count 16.2 T/CUMM (4-12)
[2022-07-02 05:03] LABS: Albumin 2.2 G/DL (3.4-5.0); Bilirubin,Total 0.9 MG/DL (0.20-1.00); Calcium 6.8 MG/DL (8.5-10.1); Osmolality,Calculated 321.1 MOS/KG (273-304); Potassium 5.3 MMOL/L (3.5-5.1); Total Protein 5.3 G/DL (6.4-8.2)
[2022-07-02] MEDS: LEVOTHYROXINE 150 MCG TABLET PO SCH (06:18)
[2022-07-02] MEDS: METOCLOPRAMIDE 10 MG/2 ML VIAL IV SCH ×3 (06:18→17:10)
[2022-07-02 08:03] LABS: Anisocytosis 2+; Band Neutrophils 4 % (0-10); Basophilic Stippling Slight; Lymphocytes 4 % (20-55); Nucleated Red Blood Cells 6 /100 WBC (0-5); Ovalocytes Few; Platelet Estimate Adequate; Polychromasia Slight; Tear Drop Cells Few; Total Cells Counted 100
[2022-07-02 08:04] LABS: Macrocytosis Slight
[2022-07-02] MEDS: MUPIROCIN 2% OINT 22 GM TUBE TOP SCH ×2 (08:32→20:25)
[2022-07-02] MEDS: MINERAL OIL/PETROLATUM OPH OINT 3.5 GM TUBE BOTH EYES SCH ×2 (08:32→20:25)
[2022-07-02] MEDS: DOCUSATE SODIUM 100 MG/10 ML UDCUP PO SCH ×2 (08:32→20:22)
[2022-07-02] MEDS: MONTELUKAST 10 MG TABLET PO SCH (08:33)
[2022-07-02] MEDS: SERTRALINE 50 MG TABLET PO SCH (08:33)
[2022-07-02] MEDS: HYDROXYCHLOROQUINE 200 MG TABLET PO SCH ×2 (08:33→20:22)
[2022-07-02] MEDS: FAMOTIDINE 20 MG/2 ML VIAL IV SCH (08:33)
[2022-07-02] MEDS: ESTRADIOL 2 MG TABLET PO SCH (08:33)
[2022-07-02] MEDS: GABAPENTIN 300 MG CAPSULE PO SCH ×2 (08:33→20:22)
[2022-07-02] MEDS: INSULIN GLARGINE 100 UNIT/ML SUBCUT SCH ×2 (09:24→20:22)
[2022-07-02] MEDS ORDERED: SODIUM POLYSTYRENE SULFATE 15 GM/60 ML BOTTLE PO ONE (11:47)
[2022-07-02 19:42] LABS: Arterial Bicarbonate iSTAT 26.2 MMOL/L (20-26); Arterial pH iSTAT 7.325 (7.35-7.45)
[2022-07-02] MEDS: ASPIRIN EC 325 MG TABLET PO SCH (20:22)
[2022-07-03] MEDS: INSULIN REGULAR 100 UNIT/ML SUBCUT SCH ×6 (00:15→20:29)
[2022-07-03] MEDS: METOCLOPRAMIDE 10 MG/2 ML VIAL IV SCH ×4 (00:16→17:17)
[2022-07-03] MEDS: ALBUTEROL/IPRATROPIUM 3 ML NEB RESP TX SCH ×4 (01:09→18:47)
[2022-07-03] MEDS: methylPREDNISolone SOD SUC 40 MG/1 ML VIAL IV SCH ×3 (01:38→16:20)
[2022-07-03 04:04] LABS: Arterial Bicarbonate iSTAT 26.5 MMOL/L (20-26); Arterial pH iSTAT 7.332 (7.35-7.45)
[2022-07-03 04:10] LABS: Basophils % 0.1 % (0.0-0.8); Hemoglobin 7.7 GM/DL (12.0-16.0); Immature Granulocytes % 2.7 %; Immature Granulocytes Absolute 0.58 #; Lymphocytes # 0.4 10*3/uL (1.4-4.0); Lymphocytes % 1.9 % (21.3-54.2); Mean Corpuscular HGB Conc 32.1 GM/DL (32-36); Mean Corpuscular Volume 100.4 FL (87-102); Mean Platelet Volume 12.1 FL (9.6-12.0); Monocytes # 0.9 10*3/uL (0.11-0.8); Monocytes % 4.4 % (1.7-12.7); NRBC # 0.44 10*3/uL; Neutrophils % 90.9 % (38.7-73.9); Platelet Count 84 T/CUMM (130-400); Red Blood Count 2.39 MC/CUMM (3.8-5.5); Red Cell Distribution Width 20.1 % (9.3-17.3); White Blood Count 21.2 T/CUMM (4-12)
[2022-07-03] MEDS: CEFEPIME 1,000 MG in SODIUM CHLORIDE 0.9% 100 ML IV SCH ×2 (04:20→15:35)
[2022-07-03 04:28] LABS: Albumin 2.5 G/DL (3.4-5.0); Bilirubin,Total 1.1 MG/DL (0.20-1.00); Calcium 6.7 MG/DL (8.5-10.1); Phosphorous 7.6 MG/DL (2.5-4.9); Total Protein 5.7 G/DL (6.4-8.2)
[2022-07-03 04:31] LABS: Anisocytosis 2+; Lymphocytes 3 % (20-55); Metamyelocytes 2 %; Platelet Estimate Decreased; Total Cells Counted 100
[2022-07-03 04:32] LABS: Basophilic Stippling 1+; Macrocytosis 1+; Nucleated Red Blood Cells 1 /100 WBC (0-5); Polychromasia Slight; Tear Drop Cells Few
[2022-07-03 04:33] LABS: Stomatocytes Few
[2022-07-03] MEDS: LEVOTHYROXINE 150 MCG TABLET PO SCH (05:48)
[2022-07-03] MEDS: MINERAL OIL/PETROLATUM OPH OINT 3.5 GM TUBE BOTH EYES SCH ×2 (09:00→20:28)
[2022-07-03] MEDS: INSULIN GLARGINE 100 UNIT/ML SUBCUT SCH ×2 (09:00→20:30)
[2022-07-03] MEDS: MUPIROCIN 2% OINT 22 GM TUBE TOP SCH ×2 (09:00→20:28)
[2022-07-03] MEDS: DOCUSATE SODIUM 100 MG/10 ML UDCUP PO SCH ×2 (09:00→20:29)
[2022-07-03] MEDS ORDERED: atenoloL 25 MG TABLET PO SCH (09:00)
[2022-07-03] MEDS: HYDROXYCHLOROQUINE 200 MG TABLET PO SCH ×2 (09:00→20:29)
[2022-07-03] MEDS: ESTRADIOL 2 MG TABLET PO SCH (09:00)
[2022-07-03] MEDS: FAMOTIDINE 20 MG/2 ML VIAL IV SCH (09:00)
[2022-07-03] MEDS: MONTELUKAST 10 MG TABLET PO SCH (09:00)
[2022-07-03] MEDS: SERTRALINE 50 MG TABLET PO SCH (09:00)
[2022-07-03] MEDS: GABAPENTIN 300 MG CAPSULE PO SCH ×2 (10:14→20:30)
[2022-07-03] MEDS ORDERED: atenoloL 25 MG TABLET PO ONE (16:46)
[2022-07-03] MEDS ORDERED: hydrALAZINE 20 MG/1 ML VIAL IV PRN (19:08)
[2022-07-03] MEDS: ASPIRIN EC 325 MG TABLET PO SCH (20:29)
[2022-07-04] MEDS: INSULIN REGULAR 100 UNIT/ML SUBCUT SCH ×6 (00:09→21:05)
[2022-07-04] MEDS: methylPREDNISolone SOD SUC 40 MG/1 ML VIAL IV SCH ×3 (00:10→17:00)
[2022-07-04] MEDS: METOCLOPRAMIDE 10 MG/2 ML VIAL IV SCH ×4 (00:10→19:34)
[2022-07-04] MEDS: ALBUTEROL/IPRATROPIUM 3 ML NEB RESP TX SCH ×4 (00:15→19:42)
[2022-07-04 03:43] LABS: Arterial Bicarbonate iSTAT 23.5 MMOL/L (20-26); Arterial pH iSTAT 7.278 (7.35-7.45)
[2022-07-04 03:52] LABS: Basophils % 0.1 % (0.0-0.8); Hematocrit 23.2 VOL% (35.7-47.0); Hemoglobin 7.4 GM/DL (12.0-16.0); Immature Granulocytes % 2.9 %; Immature Granulocytes Absolute 0.65 #; Lymphocytes # 0.5 10*3/uL (1.4-4.0); Lymphocytes % 2.3 % (21.3-54.2); Mean Corpuscular HGB Conc 31.9 GM/DL (32-36); Mean Corpuscular Volume 103.1 FL (87-102); Mean Platelet Volume 12.4 FL (9.6-12.0); Monocytes # 0.9 10*3/uL (0.11-0.8); Monocytes % 4.2 % (1.7-12.7); NRBC # 0.35 10*3/uL; Neutrophils % 90.5 % (38.7-73.9); Red Blood Count 2.25 MC/CUMM (3.8-5.5); Red Cell Distribution Width 19.9 % (9.3-17.3)
[2022-07-04 03:56] LABS: Platelet Count 64 T/CUMM (130-400)
[2022-07-04 04:03] LABS: Albumin 2.4 G/DL (3.4-5.0); Bilirubin,Total 0.9 MG/DL (0.20-1.00); Calcium 6.2 MG/DL (8.5-10.1); Osmolality,Calculated 320.2 MOS/KG (273-304); Potassium 5.9 MMOL/L (3.5-5.1); Total Protein 5.5 G/DL (6.4-8.2)
[2022-07-04] MEDS: CEFEPIME 1,000 MG in SODIUM CHLORIDE 0.9% 100 ML IV SCH ×2 (04:19→17:00)
[2022-07-04 04:21] LABS: Eosinophils 1 % (0-10); Hypochromia Slight; Lymphocytes 4 % (20-55); Platelet Estimate Decreased; Total Cells Counted 100
[2022-07-04 04:22] LABS: Macrocytosis Slight; Polychromasia Slight
[2022-07-04] MEDS: LEVOTHYROXINE 150 MCG TABLET PO SCH (05:36)
[2022-07-04] MEDS ORDERED: INSULIN GLARGINE 100 UNIT/ML SUBCUT ONE (08:35)
[2022-07-04] MEDS: FAMOTIDINE 20 MG/2 ML VIAL IV SCH (09:42)
[2022-07-04] MEDS: DOCUSATE SODIUM 100 MG/10 ML UDCUP PO SCH ×2 (09:43→21:05)
[2022-07-04] MEDS: ESTRADIOL 2 MG TABLET PO SCH (09:43)
[2022-07-04] MEDS: atenoloL 25 MG TABLET PO SCH (09:43)
[2022-07-04] MEDS: MONTELUKAST 10 MG TABLET PO SCH (09:44)
[2022-07-04] MEDS: HYDROXYCHLOROQUINE 200 MG TABLET PO SCH ×2 (09:44→21:06)
[2022-07-04] MEDS: SERTRALINE 50 MG TABLET PO SCH (09:44)
[2022-07-04] MEDS: INSULIN GLARGINE 100 UNIT/ML SUBCUT SCH ×2 (09:44→21:05)
[2022-07-04] MEDS ORDERED: SODIUM POLYSTYRENE SULFATE 15 GM/60 ML BOTTLE PO ONE (10:32)
[2022-07-04] MEDS: MUPIROCIN 2% OINT 22 GM TUBE TOP SCH ×2 (13:36→21:05)
[2022-07-04] MEDS: GABAPENTIN 300 MG CAPSULE PO SCH ×2 (13:37→21:06)
[2022-07-04] MEDS: MINERAL OIL/PETROLATUM OPH OINT 3.5 GM TUBE BOTH EYES SCH ×2 (13:37→21:06)
[2022-07-04 18:14] LABS: Calcium 6.8 MG/DL (8.5-10.1); Osmolality,Calculated 307.2 MOS/KG (273-304)
[2022-07-04] MEDS: ASPIRIN EC 325 MG TABLET PO SCH (21:05)
[2022-07-04] MEDS: NOREPINEPHRINE DRIP 8 MG/250 ML PREMIX IV PRN (22:26)
[2022-07-04 22:28] LABS: Arterial Base Excess iSTAT -8 MMOL/L (-2.5-2.5); Arterial Bicarbonate iSTAT 17.2 MMOL/L (20-26); Arterial O2 Saturation iSTAT 96 % (95-100); Arterial PCO2 iSTAT 31 MM HG (35-48); Arterial PO2 iSTAT 85 MM HG (80-95); Arterial Total CO2 iSTAT 18 MMO/L (23-27); Arterial pH iSTAT 7.355 (7.35-7.45)
[2022-07-04 22:50] LABS: Basophils # 0.1 10*3/uL (0.0-0.2); Basophils % 0.2 % (0.0-0.8); Hematocrit 20.8 VOL% (35.7-47.0); Hemoglobin 6.6 GM/DL (12.0-16.0); Immature Granulocytes % 2.3 %; Immature Granulocytes Absolute 0.64 #; Lymphocytes # 0.6 10*3/uL (1.4-4.0); Lymphocytes % 2.3 % (21.3-54.2); Mean Corpuscular HGB Conc 31.7 GM/DL (32-36); Mean Corpuscular Volume 101.5 FL (87-102); Mean Platelet Volume 12.4 FL (9.6-12.0); Monocytes # 1.4 10*3/uL (0.11-0.8); Monocytes % 5.2 % (1.7-12.7); NRBC # 0.44 10*3/uL; Platelet Count 59 T/CUMM (130-400); Red Blood Count 2.05 MC/CUMM (3.8-5.5); Red Cell Distribution Width 19.8 % (9.3-17.3); White Blood Count 27.5 T/CUMM (4-12)
[2022-07-04 23:16] LABS: Lymphocytes 1 % (20-55); Nucleated Red Blood Cells 4 /100 WBC (0-5); Total Cells Counted 100
[2022-07-04 23:17] LABS: Platelet Estimate Decreased
[2022-07-05] MEDS: METOCLOPRAMIDE 10 MG/2 ML VIAL IV SCH ×4 (00:17→17:33)
[2022-07-05] MEDS: methylPREDNISolone SOD SUC 40 MG/1 ML VIAL IV SCH ×3 (00:17→17:33)
[2022-07-05] MEDS: INSULIN REGULAR 100 UNIT/ML SUBCUT SCH ×6 (00:17→21:08)
[2022-07-05] MEDS: ALBUTEROL/IPRATROPIUM 3 ML NEB RESP TX SCH ×5 (01:10→19:54)
[2022-07-05 04:15] LABS: Arterial pH iSTAT 7.389 (7.35-7.45)
[2022-07-05] MEDS: CEFEPIME 1,000 MG in SODIUM CHLORIDE 0.9% 100 ML IV SCH ×2 (04:24→17:33)
[2022-07-05] MEDS: LEVOTHYROXINE 150 MCG TABLET PO SCH (05:58)
[2022-07-05] MEDS: MONTELUKAST 10 MG TABLET PO SCH (08:21)
[2022-07-05] MEDS: ESTRADIOL 2 MG TABLET PO SCH (08:21)
[2022-07-05] MEDS: SERTRALINE 50 MG TABLET PO SCH (08:21)
[2022-07-05] MEDS: HYDROXYCHLOROQUINE 200 MG TABLET PO SCH ×2 (08:21→21:08)
[2022-07-05] MEDS: DOCUSATE SODIUM 100 MG/10 ML UDCUP PO SCH ×2 (08:21→21:08)
[2022-07-05] MEDS: FAMOTIDINE 20 MG/2 ML VIAL IV SCH (08:22)
[2022-07-05] MEDS: atenoloL 25 MG TABLET PO SCH (08:22)
[2022-07-05] MEDS: INSULIN GLARGINE 100 UNIT/ML SUBCUT SCH ×2 (08:24→21:08)
[2022-07-05] MEDS: GABAPENTIN 300 MG CAPSULE PO SCH ×2 (08:30→20:32)
[2022-07-05 09:09] LABS: Basophils # 0.1 10*3/uL (0.0-0.2); Basophils % 0.2 % (0.0-0.8); Eosinophils # 0.1 10*3/uL (0.0-0.87); Eosinophils % 0.2 % (0.00-10.9); Hematocrit 29.7 VOL% (35.7-47.0); Hemoglobin 9.7 GM/DL (12.0-16.0); Immature Granulocytes Absolute 1.03 #; Lymphocytes % 2.9 % (21.3-54.2); Mean Corpuscular HGB Conc 32.7 GM/DL (32-36); Mean Corpuscular Volume 96.7 FL (87-102); Monocytes # 2.5 10*3/uL (0.11-0.8); Monocytes % 7.4 % (1.7-12.7); NRBC # 0.36 10*3/uL; Neutrophils % 86.3 % (38.7-73.9); Platelet Count 52 T/CUMM (130-400); Red Blood Count 3.07 MC/CUMM (3.8-5.5); Red Cell Distribution Width 19.1 % (9.3-17.3); White Blood Count 34.1 T/CUMM (4-12)
[2022-07-05 09:28] LABS: Albumin 2.4 G/DL (3.4-5.0); Bilirubin,Total 0.9 MG/DL (0.20-1.00); Lymphocytes 6 % (20-55); Nucleated Red Blood Cells 1 /100 WBC (0-5); Osmolality,Calculated 314.2 MOS/KG (273-304); Platelet Estimate Decreased; Potassium 5.3 MMOL/L (3.5-5.1); Total Cells Counted 100; Total Protein 5.5 G/DL (6.4-8.2)
[2022-07-05 09:31] LABS: Calcium 5.8 MG/DL (8.5-10.1)
[2022-07-05] MEDS: MUPIROCIN 2% OINT 22 GM TUBE TOP SCH ×2 (15:33→21:08)
[2022-07-05] MEDS: MINERAL OIL/PETROLATUM OPH OINT 3.5 GM TUBE BOTH EYES SCH ×2 (15:33→21:09)
[2022-07-05] MEDS: ASPIRIN EC 325 MG TABLET PO SCH (21:08)
[2022-07-06] MEDS: INSULIN REGULAR 100 UNIT/ML SUBCUT SCH ×7 (00:15→23:53)
[2022-07-06] MEDS: METOCLOPRAMIDE 10 MG/2 ML VIAL IV SCH ×5 (00:15→20:22)
[2022-07-06] MEDS: methylPREDNISolone SOD SUC 40 MG/1 ML VIAL IV SCH ×3 (00:15→20:22)
[2022-07-06] MEDS: ALBUTEROL/IPRATROPIUM 3 ML NEB RESP TX SCH ×5 (00:39→23:59)
[2022-07-06 03:27] LABS: Arterial Bicarbonate iSTAT 24.4 MMOL/L (20-26); Arterial pH iSTAT 7.311 (7.35-7.45)
[2022-07-06 03:40] LABS: Basophils # 0.1 10*3/uL (0.0-0.2); Basophils % 0.3 % (0.0-0.8); Hemoglobin 9.4 GM/DL (12.0-16.0); Immature Granulocytes % 2.8 %; Immature Granulocytes Absolute 1.28 #; Lymphocytes % 2.1 % (21.3-54.2); Mean Corpuscular HGB Conc 32.4 GM/DL (32-36); Mean Corpuscular Volume 98.6 FL (87-102); Mean Platelet Volume 12.1 FL (9.6-12.0); Monocytes # 2.9 10*3/uL (0.11-0.8); Monocytes % 6.2 % (1.7-12.7); NRBC # 0.25 10*3/uL; Neutrophils % 88.6 % (38.7-73.9); Platelet Count 49 T/CUMM (130-400); Red Blood Count 2.94 MC/CUMM (3.8-5.5); Red Cell Distribution Width 20.1 % (9.3-17.3)
[2022-07-06 03:43] LABS: White Blood Count 46.5 T/CUMM (4-12)
[2022-07-06 03:53] LABS: Calcium 6.3 MG/DL (8.5-10.1); Osmolality,Calculated 308.1 MOS/KG (273-304); Potassium 5.3 MMOL/L (3.5-5.1)
[2022-07-06 04:06] LABS: Lymphocytes 2 % (20-55); Nucleated Red Blood Cells 1 /100 WBC (0-5); Total Cells Counted 100
[2022-07-06 04:07] LABS: Anisocytosis 1+; Polychromasia Slight
[2022-07-06 04:08] LABS: Platelet Estimate Decreased
[2022-07-06] MEDS: LEVOTHYROXINE 150 MCG TABLET PO SCH (06:03)
[2022-07-06] MEDS: MUPIROCIN 2% OINT 22 GM TUBE TOP SCH ×2 (08:30→20:20)
[2022-07-06] MEDS: ESTRADIOL 2 MG TABLET PO SCH (08:31)
[2022-07-06] MEDS: DOCUSATE SODIUM 100 MG/10 ML UDCUP PO SCH ×2 (08:31→20:22)
[2022-07-06] MEDS: MINERAL OIL/PETROLATUM OPH OINT 3.5 GM TUBE BOTH EYES SCH ×2 (08:31→20:21)
[2022-07-06] MEDS: HYDROXYCHLOROQUINE 200 MG TABLET PO SCH ×2 (08:31→20:22)
[2022-07-06] MEDS: INSULIN GLARGINE 100 UNIT/ML SUBCUT SCH ×2 (08:31→20:25)
[2022-07-06] MEDS: atenoloL 25 MG TABLET PO SCH (08:31)
[2022-07-06] MEDS: SERTRALINE 50 MG TABLET PO SCH (08:32)
[2022-07-06] MEDS: FAMOTIDINE 8 MG/ML 50 ML/BOTTLE PER TUBE SCH (17:17)
[2022-07-06] MEDS: CEFEPIME 1,000 MG in SODIUM CHLORIDE 0.9% 100 ML IV SCH ×2 (17:17→20:32)
[2022-07-06] MEDS: ASPIRIN EC 325 MG TABLET PO SCH (20:21)
[2022-07-07 03:51] LABS: Arterial Base Excess iSTAT -3 MMOL/L (-2.5-2.5); Arterial Bicarbonate iSTAT 23.6 MMOL/L (20-26); Arterial O2 Saturation iSTAT 94 % (95-100); Arterial PCO2 iSTAT 50 MM HG (35-48); Arterial PO2 iSTAT 81 MM HG (80-95); Arterial Total CO2 iSTAT 25 MMO/L (23-27)
[2022-07-07 05:09] LABS: Basophils # 0.1 10*3/uL (0.0-0.2); Basophils % 0.3 % (0.0-0.8); Eosinophils % 0.1 % (0.00-10.9); Hematocrit 25.4 VOL% (35.7-47.0); Hemoglobin 8.2 GM/DL (12.0-16.0); Immature Granulocytes % 3.1 %; Immature Granulocytes Absolute 1.56 #; Lymphocytes # 1.3 10*3/uL (1.4-4.0); Lymphocytes % 2.5 % (21.3-54.2); Mean Corpuscular HGB Conc 32.3 GM/DL (32-36); Mean Corpuscular Volume 99.6 FL (87-102); Monocytes # 3.1 10*3/uL (0.11-0.8); Monocytes % 6.1 % (1.7-12.7); NRBC # 0.42 10*3/uL; Neutrophils % 87.9 % (38.7-73.9); Platelet Count 46 T/CUMM (130-400); Red Blood Count 2.55 MC/CUMM (3.8-5.5); Red Cell Distribution Width 20.1 % (9.3-17.3)
[2022-07-07 05:13] LABS: Calcium 6.9 MG/DL (8.5-10.1); Osmolality,Calculated 308.2 MOS/KG (273-304); Potassium 4.9 MMOL/L (3.5-5.1)
[2022-07-07] MEDS: INSULIN REGULAR 100 UNIT/ML SUBCUT SCH ×6 (05:26→23:27)
[2022-07-07] MEDS: METOCLOPRAMIDE 10 MG/2 ML VIAL IV SCH ×4 (05:26→20:26)
[2022-07-07 05:30] LABS: White Blood Count 49.8 T/CUMM (4-12)
[2022-07-07 05:34] LABS: Lymphocytes 4 % (20-55); Nucleated Red Blood Cells 1 /100 WBC (0-5); Platelet Estimate Decreased; Total Cells Counted 100
[2022-07-07] MEDS: LEVOTHYROXINE 150 MCG TABLET PO SCH (05:57)
[2022-07-07] MEDS: ALBUTEROL/IPRATROPIUM 3 ML NEB RESP TX SCH ×3 (07:38→19:12)
[2022-07-07] MEDS: atenoloL 25 MG TABLET PO SCH (08:01)
[2022-07-07] MEDS: ESTRADIOL 2 MG TABLET PO SCH (08:01)
[2022-07-07] MEDS: SERTRALINE 50 MG TABLET PO SCH (08:01)
[2022-07-07] MEDS: HYDROXYCHLOROQUINE 200 MG TABLET PO SCH ×2 (08:01→20:26)
[2022-07-07] MEDS: methylPREDNISolone SOD SUC 40 MG/1 ML VIAL IV SCH ×2 (08:02→20:25)
[2022-07-07] MEDS: FAMOTIDINE 8 MG/ML 50 ML/BOTTLE PER TUBE SCH (08:03)
[2022-07-07] MEDS: MUPIROCIN 2% OINT 22 GM TUBE TOP SCH ×2 (08:03→20:40)
[2022-07-07] MEDS ORDERED: VANCOMYCIN IV ONE (08:06)
[2022-07-07] MEDS ORDERED: SODIUM CHLORIDE 0.9% IV ONE (08:06)
[2022-07-07] MEDS: MINERAL OIL/PETROLATUM OPH OINT 3.5 GM TUBE BOTH EYES SCH ×2 (08:17→20:40)
[2022-07-07] MEDS ORDERED: VANCOMYCIN INJ 1,500 MG in SODIUM CHLORIDE 0.9% 500 ML IV PRN (08:29)
[2022-07-07] MEDS ORDERED: VANCOMYCIN INJ 2,500 MG in SODIUM CHLORIDE 0.9% 500 ML IV ONE (09:00)
[2022-07-07] MEDS: INSULIN GLARGINE 100 UNIT/ML SUBCUT SCH ×2 (09:18→20:27)
[2022-07-07] MEDS: DOCUSATE SODIUM 100 MG/10 ML UDCUP PO SCH ×2 (09:19→20:39)
[2022-07-07] MEDS: CEFEPIME 1,000 MG in SODIUM CHLORIDE 0.9% 100 ML IV SCH (20:25)
[2022-07-07] MEDS: ASPIRIN EC 325 MG TABLET PO SCH (20:26)
[2022-07-08] MEDS: ALBUTEROL/IPRATROPIUM 3 ML NEB RESP TX SCH ×4 (00:40→19:44)
[2022-07-08] MEDS: METOCLOPRAMIDE 10 MG/2 ML VIAL IV SCH ×4 (03:15→22:55)
[2022-07-08 03:32] LABS: ABG Base Excess -6.3 MMOL/L (-2.5-2.5); ABG HCO3 19.1 MMOL/L (20-26); ABG Oxygen Saturation 90.1 % (95-100); ABG PCO2 56.1 MM HG (35-48); ABG PH 7.202 (7.35-7.45); ABG PO2 72.4 MM HG (80-95); ABG TCO2 20.8 MMOL/L (23-27)
[2022-07-08] MEDS: NOREPINEPHRINE DRIP 8 MG/250 ML PREMIX IV PRN ×5 (03:35→21:07)
[2022-07-08 03:59] LABS: Basophils # 0.3 10*3/uL (0.0-0.2); Basophils % 0.4 % (0.0-0.8); Hematocrit 25.9 VOL% (35.7-47.0); Hemoglobin 8.3 GM/DL (12.0-16.0); Immature Granulocytes % 4.4 %; Immature Granulocytes Absolute 3.25 #; Lymphocytes % 1.4 % (21.3-54.2); Monocytes # 2.6 10*3/uL (0.11-0.8); Monocytes % 3.5 % (1.7-12.7); NRBC # 2.99 10*3/uL; Neutrophils % 90.3 % (38.7-73.9); Platelet Count 102 T/CUMM (130-400); Red Blood Count 2.59 MC/CUMM (3.8-5.5); Red Cell Distribution Width 20.4 % (9.3-17.3)
[2022-07-08 04:10] LABS: White Blood Count 73.5 T/CUMM (4-12)
[2022-07-08 04:15] LABS: Calcium 6.7 MG/DL (8.5-10.1); Osmolality,Calculated 318.4 MOS/KG (273-304); Potassium 5.9 MMOL/L (3.5-5.1)
[2022-07-08 04:20] LABS: Lymphocytes 4 % (20-55); Nucleated Red Blood Cells 7 /100 WBC (0-5); Total Cells Counted 100
[2022-07-08 04:21] LABS: Hypochromia Slight; Macrocytosis Slight; Polychromasia Slight
[2022-07-08] MEDS: INSULIN REGULAR 100 UNIT/ML SUBCUT SCH ×5 (04:51→19:52)
[2022-07-08 08:48] VITALS: BP 88/45
[2022-07-08] MEDS: LEVOTHYROXINE 150 MCG TABLET PO SCH (09:15)
[2022-07-08] MEDS: methylPREDNISolone SOD SUC 40 MG/1 ML VIAL IV SCH ×2 (09:16→22:50)
[2022-07-08] MEDS: HYDROXYCHLOROQUINE 200 MG TABLET PO SCH ×2 (09:17→20:50)
[2022-07-08] MEDS: DOCUSATE SODIUM 100 MG/10 ML UDCUP PO SCH ×2 (09:17→20:50)
[2022-07-08] MEDS: FAMOTIDINE 8 MG/ML 50 ML/BOTTLE PER TUBE SCH (09:17)
[2022-07-08] MEDS: ESTRADIOL 2 MG TABLET PO SCH (09:17)
[2022-07-08] MEDS: MINERAL OIL/PETROLATUM OPH OINT 3.5 GM TUBE BOTH EYES SCH ×2 (09:18→20:50)
[2022-07-08] MEDS: SERTRALINE 50 MG TABLET PO SCH (09:19)
[2022-07-08] MEDS: atenoloL 25 MG TABLET PO SCH (09:19)
[2022-07-08] MEDS: INSULIN GLARGINE 100 UNIT/ML SUBCUT SCH ×2 (09:20→22:52)
[2022-07-08] MEDS: MUPIROCIN 2% OINT 22 GM TUBE TOP SCH ×2 (11:17→20:50)
[2022-07-08] MEDS ORDERED: VANCOMYCIN INJ 1,500 MG in SODIUM CHLORIDE 0.9% 500 ML IV ONE (17:00)
[2022-07-08] MEDS: CEFEPIME 1,000 MG in SODIUM CHLORIDE 0.9% 100 ML IV SCH (20:50)
[2022-07-08] MEDS ORDERED: ASPIRIN 325 MG TABLET PO SCH (21:00)
[2022-07-09] MEDS: ALBUTEROL/IPRATROPIUM 3 ML NEB RESP TX SCH ×2 (00:10→07:50)
[2022-07-09] MEDS: NOREPINEPHRINE DRIP 8 MG/250 ML PREMIX IV PRN ×6 (00:12→11:05)
[2022-07-09] MEDS: INSULIN REGULAR 100 UNIT/ML SUBCUT SCH ×4 (00:21→16:24)
[2022-07-09] MEDS: METOCLOPRAMIDE 10 MG/2 ML VIAL IV SCH ×2 (03:08→16:33)
[2022-07-09 03:26] LABS: ABG Base Excess -13.3 MMOL/L (-2.5-2.5); ABG HCO3 13.9 MMOL/L (20-26); ABG Oxygen Saturation 95.2 % (95-100); ABG PCO2 35.5 MM HG (35-48); ABG TCO2 13.3 MMOL/L (23-27)
[2022-07-09 04:31] LABS: Basophils # 0.3 10*3/uL (0.0-0.2); Basophils % 0.4 % (0.0-0.8); Hematocrit 24.1 VOL% (35.7-47.0); Hemoglobin 7.6 GM/DL (12.0-16.0); Immature Granulocytes % 6.5 %; Immature Granulocytes Absolute 4.23 #; Lymphocytes # 1.2 10*3/uL (1.4-4.0); Lymphocytes % 1.9 % (21.3-54.2); Mean Corpuscular HGB Conc 31.5 GM/DL (32-36); Mean Corpuscular Volume 102.6 FL (87-102); Mean Platelet Volume 14.3 FL (9.6-12.0); Monocytes # 3.6 10*3/uL (0.11-0.8); Monocytes % 5.6 % (1.7-12.7); Neutrophils % 85.6 % (38.7-73.9); Platelet Count 104 T/CUMM (130-400); Red Blood Count 2.35 MC/CUMM (3.8-5.5); Red Cell Distribution Width 22.3 % (9.3-17.3)
[2022-07-09 04:33] LABS: White Blood Count 65.1 T/CUMM (4-12)
[2022-07-09 04:40] LABS: Calcium 6.9 MG/DL (8.5-10.1); Osmolality,Calculated 314.5 MOS/KG (273-304)
[2022-07-09 04:43] LABS: Potassium 6.1 MMOL/L (3.5-5.1)
[2022-07-09 04:56] LABS: Band Neutrophils 2 % (0-10); Lymphocytes 3 % (20-55); Nucleated Red Blood Cells 9 /100 WBC (0-5); Total Cells Counted 100
[2022-07-09 04:57] LABS: Anisocytosis 1+; Macrocytosis 1+; Platelet Estimate Decreased; Polychromasia Slight
[2022-07-09] MEDS ORDERED: SODIUM BICARBONATE 50 MEQ/50 ML VIAL IV ONE (05:15)
[2022-07-09] MEDS ORDERED: SODIUM ZIRCONIUM CYCLOSILICATE 10 GM PACK PO SCH ×2 (06:00→09:00)
[2022-07-09] MEDS ORDERED: EPINEPHrine 1 MG/10 ML SYRINGE IV ONE (06:15)
[2022-07-09] MEDS ORDERED: CALCIUM CHLORIDE 1,000 MG/10 ML SYRINGE IV ONE (06:16)
[2022-07-09] MEDS ORDERED: SODIUM BICARBONATE 50 MEQ/50 ML SYRINGE IV ONE (06:16)
[2022-07-09] MEDS: LEVOTHYROXINE 150 MCG TABLET PO SCH (06:37)
[2022-07-09] MEDS: methylPREDNISolone SOD SUC 40 MG/1 ML VIAL IV SCH (09:10)
[2022-07-09] MEDS: MINERAL OIL/PETROLATUM OPH OINT 3.5 GM TUBE BOTH EYES SCH (09:10)
[2022-07-09] MEDS: INSULIN GLARGINE 100 UNIT/ML SUBCUT SCH (09:10)
[2022-07-09] MEDS: HYDROXYCHLOROQUINE 200 MG TABLET PO SCH (09:10)
[2022-07-09] MEDS: FAMOTIDINE 8 MG/ML 50 ML/BOTTLE PER TUBE SCH (09:10)
[2022-07-09] MEDS: atenoloL 25 MG TABLET PO SCH (09:10)
[2022-07-09] MEDS: ESTRADIOL 2 MG TABLET PO SCH (09:10)
[2022-07-09] MEDS: MUPIROCIN 2% OINT 22 GM TUBE TOP SCH (09:10)
[2022-07-09] MEDS: SERTRALINE 50 MG TABLET PO SCH (09:10)
[2022-07-09] MEDS ORDERED: MORPHINE 2 MG/1 ML SYRINGE IV ONE (12:50)
[2022-07-09] MEDS ORDERED: MORPHINE 2 MG/1 ML SYRINGE ONE (12:52)
[2022-07-09] MEDS ORDERED: PHENYLEPHRINE DRIP 40 MG/250 ML PREMIX IV ONE (14:08)
[2022-07-09] MEDS: DOCUSATE SODIUM 100 MG/10 ML UDCUP PO SCH (16:30)
== END 2022-07-09 13:19 | disposition expired | DRG 207 ==
LOC: N.EDINP 14:26 → N.ED 14:26 → SUATTDRO 16:15 → N.2E 18:05 → N.ICU 06-22 01:53 → SUATTDRO 06-22 06:58
PROVIDERS: ADMIT Family Medicine; ATTEND Internal Medicine